=== PATIENT | male | born 1930 | race Caucasian/White ===

== ENCOUNTER 2017-09-08 19:51 | Inpatient (IN) | payer MEDICARE ==
--- NOTE | 2017-09-08 22:38 | ED Physician Chart ---
ED Chief Complaint/HPI - Patient Information Date Seen:: 09/08/17 Time Seen:: 22:37 Chief Complaint:: hemoptysis History of Present Illness:: 87 yo male was brought from [facility] to ER for evaluation of one episode of hemoptysis. At ER, the patient's vital signs were within normal range and the patient did not appear to be in distress. Allergies:: Allergies Allergy/AdvReac Type Severity Reaction Status Date / Time No Known Allergies Allergy Verified 09/08/17 20:10 Vitals:: Vital Signs - 8 hr 09/08/17 19:55 Temp 98.1 F HR 57 RR 20 BP 126/67 O2 Sat % 95 ED Review of Systems - Review of Systems General/Constitutional: No fever, No chills Skin: No bruising Head: No headache Eyes: No pain ENT: No nasal drainage Neck: No neck pain Cardio Vascular: No edema Pulmonary: Cough, Sputum GI: No nausea, No vomiting Musculoskeletal: No bone or joint pain ED Past Medical History - Past Medical History Past Medical History: HTN, DM, Asthma/COPD, Dyslipidemia, PUD/GERD, Dementia, Other (Anemia, Parkinson's disease) Social History: Non Smoker, No Alcohol, No Drug Use Psychiatricy History: Depression, Bipolar Family Medical History - Family Member Mother History Unknown: Yes ED Physical Exam - Physical Examination General/Constitutional: Awake, Alert Head: Atraumatic Eyes: PERRL, EOMI Skin: No ecchymosis ENMT: Nasal exam nl Neck: No nuchal rigidity Other Respiratory comments:: rhonchi Cardio Vascular: RRR, No murmur, gallop, rubs, NL S1 S2 GI: No tenderness/rebounding/guarding Extremities: Full ROM Other Neuro/Psych comments:: Demented ED Assessment - Assessment General Assessment: Pneumonia Anemia Hypoxemia Metabolic alkalosis Hypertension Parkinson's Dementia Assessment/Comments:: CBC, CMP, PT/PTT ABG, CXR Admit to med surg ED Septic Shock - . Is Septic Shock (SBP<90, OR Lactate>4 mmol\L) present?: No - <6hrs of presentation: Vital Signs: Vital Signs - 8 hr 09/08/17 19:55 Temp 98.1 F HR 57 RR 20 BP 126/67 O2 Sat % 95 ED Reassessment (Disposition) - Reassessment Reassessment Condition:: Unchanged - Patient Disposition Discharge/Transfer:: Acute Care w/in this hosp Admitting Medical Physician:: Mj Shaver ED Discharge Plan - Patient Disposition Admit/Discharge/Transfer: Acute Care w/in this hosp
[2017-09-08 23:38] LABS: % EOSINOPHILS 5.2 % (0.0-5.0); % LYMPHOCYTES 18.6 % (20.0-50.0); % MONOCYTES 7.6 % (2.0-10.0); % NEUTROPHILS 68.6 % (40.0-80.0); EOSINOPHILE ABSOLUTE 0.5 Th/cmm (0.1-0.4); HEMATOCRIT 36.3 % (41.0-60); HEMOGLOBIN 11.9 gm/dL (12-16); LYMPHOCYTE ABSOLUTE 1.7 Th/cmm (1.5-3.0); MEAN CELL VOLUME 91.2 fl (80-99); MEAN CORPUSCULAR HEMOGLOBIN 29.9 pg (27.0-31.0); MEAN CORPUSCULAR HGB CONC 32.8 pg (28.0-36.0); MEAN PLATELET VOLUME 6.4 fl; MONOCYTE ABSOLUTE 0.7 Th/cmm (0.3-1.0); NEUTROPHILE ABSOLUTE 6.1 Th/cmm (1.8-8.0); PLATELET COUNT 316 Th/cmm (150-400); RED BLOOD COUNT 3.98 Mil/cmm (3.80-5.80); RED CELL DISTRIBUTION WIDTH 15.4 % (11.5-20.0)
[2017-09-08 23:52] LABS: ALB/GLOB RATIO 1.1 (1.0-1.8); ALBUMIN 3.3 gm/dL (4.2-5.5); ALKALINE PHOSPHATASE 70 U/L (34-104); BILIRUBIN,TOTAL 0.2 mg/dL (0.3-1.0); BUN - UREA NITROGEN 15 mg/dL (7-25); CALCIUM SERUM 8.9 mg/dL (8.6-10.3); CARBON DIOXIDE 30.4 mEq/L (21.0-31.0); CHLORIDE 101 mEq/L (98-107); CREATININE - SERUM 0.9 mg/dL (0.7-1.3); GLUCOSE 107 mg/dL (70-105); POTASSIUM SERUM 4.4 mEq/L (3.5-5.1); SGOT 13 U/L (13-39); SGPT/ALT 9 U/L (7-52); SODIUM SERUM 137 mEq/L (136-145); TOTAL PROTEIN,SERUM 6.4 gm/dL (6.0-8.3)
[2017-09-08 23:56] LABS: INR 1.05 (0.5-1.4); PROTHROMBIN TIME (TEST) 10.9 SECONDS (9.5-11.5)
[2017-09-08 23:56] LABS: ALLEN TEST Positive
[2017-09-09] MEDS ORDERED: Albuterol/Ipratropium Neb 3 ML AERS HHN ONE (03:21)
[2017-09-09] MEDS: Albuterol/Ipratropium Neb 3 ML AERS HHN SCH ×5 (07:08→23:01)
--- NOTE | 2017-09-09 08:18 | Diagnostic Imaging Report ---
Exam: Portable upright examination of the chest. HISTORY: Cough. Findings: Portable summation of chest at 0047 hours reviewed, no prior studies available comparison. Bony thorax is intact. Mediastinal structures midline the heart is not enlarged the aortic arch calcified. There is a question of atelectasis in the right base versus early infiltrate. Small left pleural effusion cannot be excluded. COPD changes are noted. IMPRESSION: 1. COPD changes 2. Mild atelectasis right base versus scarring or small area of fibrotic scarring. 3. Small left pleural effusion. 4. COMPARISON to old study is recommended.
[2017-09-09] MEDS ORDERED: Cefepime 1 GM in Sodium Chloride 0.9% 50 ML IV SCH (09:00)
[2017-09-09] MEDS ORDERED: VTE Chemical Prophylaxis Screen/Admission MC PRN (12:30)
[2017-09-09 12:36] LABS: A1C % 6.2 % (4.0-6.0)
[2017-09-09] MEDS ORDERED: Magnesium Hydroxide (MOM) 30 mL UDC PO PRN (13:37)
[2017-09-09] MEDS ORDERED: guaiFENesin 200 MG/10 ML UDC PO PRN (13:46)
[2017-09-09] MEDS ORDERED: IOHEXOL 300mgI/mL 100 ML VIAL IVP ONE (15:24)
--- NOTE | 2017-09-09 15:55 | History & Physical ---
ADMIT DATE: 09/09/2017 CHIEF COMPLAINT: Blood in the sputum. HISTORY OF PRESENT ILLNESS: This is an 87-year-old male with history of COPD, Parkinson's, hypertension, hypercholesterolemia, GERD, schizoaffective disorder, dementia, was admitted from nursing facility secondary to spitting up blood. The patient with anemia and admitted for further management. PAST MEDICAL HISTORY: As mentioned in history present illness. PAST SURGICAL HISTORY: Unable to obtain for the patient. ALLERGIES: No known drug allergies. MEDICATIONS: The patient is on calcium, vitamin D3, dextran, Depakote, Colace, enalapril, ____, lactulose, Namenda, olanzapine and simvastatin. FAMILY HISTORY: Noncontributory. SOCIAL HISTORY: The patient lives in senior care. The patient requiring 24-hour total care. REVIEW OF SYSTEMS: This is limited secondary to the patient's current mental state. We will try to obtain more detailed review of system at a later date by talking to family members, ____ [phone] also try to get information from nursing staff at [facility], . PHYSICAL EXAMINATION: VITAL SIGNS: Blood pressure 130/67, respirations 18, pulse 70, and temperature 97.6. GENERAL: Elderly male, who appears his stated age. NECK: Supple. No mass. LUNGS: Equal breath sounds, few rhonchi. HEART: Regular rate and rhythm with systolic ejection murmur. ABDOMEN: Soft, globular. EXTREMITIES: Positive excoriation. LABORATORY DATA: WBC 9.7, hemoglobin 9.9, platelets 316. INR 1.05, PTT 24, pH 7.5, pCO2 of 35, pO2 of ____. BUN 15, creatinine 0.9. Hemoglobin A1c 6.3. Albumin 3.3. ASSESSMENT AND PLAN: Hemoptysis, anemia, CO2 retention, acute chronic obstructive pulmonary disease exacerbation, hypoxemia, Parkinson's, hypertension, hypercholesterolemia, gastroesophageal reflux disease, schizoaffective disorder. We will continue patient on oxygen and bronchodilator treatment. We will perform CT of the chest. We will refer the patient to Pulmonary. Also, try to get information from the patient. JOB# [id number]
[2017-09-09] MEDS: Polyvinyl Alcohol Ophth Soln 15 mL Bottle LEFT EYE SCH ×2 (17:26→20:58)
[2017-09-10] MEDS: Albuterol/Ipratropium Neb 3 ML AERS HHN SCH ×5 (03:07→19:15)
--- NOTE | 2017-09-10 08:53 | Consultation ---
DATE OF CONSULTATION: 09/10/2017 REQUESTING PHYSICIAN: Dr. Shaver. REASON FOR CONSULTATION: Depression and anxiety. HISTORY OF PRESENT ILLNESS: This patient is an 87-year-old male, resident of [facility] in [place]. Information obtained by directly interviewing the patient as well as taking the admission papers. As per the information obtained, the patient has been brought over here for hemoptysis and patient has constantly been moaning, groaning and has been acutely anxious and hence a Psychiatric consultation is requested to address the issue. Chart is reviewed. The patient is interviewed and the patient's medication list includes the patient had been on Depakote Sprinkles 125 mg twice a day and patient also has been on Zyprexa 2.5 mg at bedtime, Namenda 10 mg tablet 1 twice a day and the patient is reported to have been diagnosed to have multiple medical problems. The patient is reportedly recently diagnosed to have pneumonia on the left side and patient has a history of Parkinson's disease, diabetes mellitus, hypertension, and patient during the evaluation has been complaining of pain in the left shoulder area. PAST PSYCHIATRIC HISTORY: The patient denies any prior psychiatric hospitalizations, but patient is being followed up by on an outpatient basis at the facility. SOCIAL HISTORY: The patient is a resident of the [facility]. The patient is reported to have daughter very concerned with the patient's welfare at this time. SUBSTANCE ABUSE HISTORY: None. PHYSICAL AND SEXUAL ABUSE HISTORY: None. LEGAL PROBLEMS: None at this time. STRENGTHS AND ASSETS: The patient seems to be motivated. MENTAL EXAMINATION: The patient is an 87-year-old, looking his stated age, superficially cooperative. Eye contact is poor. The patient is reporting that he is having acute pain on the left side. The patient's insight and judgment at this time are noted to be improving. Impulse control seems to be fair. The patient is not presenting with any threats to harm self or others, but patient's major concern seems to be pain. The patient has short-term memory deficits, but long-term memory is also noted to be very sketchy. The patient however knows that he is old but he could not fill it out the exact age and date of . DIAGNOSTIC IMPRESSION: 1. Depressive disorder, not otherwise specified. 1b. Dementia of Alzheimer's type. 1c. Anxiety disorder. PLAN: To continue the patient with these current medications. I encouraged the patient to verbalize the concerns and wait for further determination as to the psychiatric needs for the patient. JOB# [id number]
[2017-09-10] MEDS ORDERED: CARBIDOPA PO SCH (09:00)
[2017-09-10] MEDS ORDERED: LEVODOPA PO SCH (09:00)
--- NOTE | 2017-09-10 09:09 | Diagnostic Imaging Report ---
Exam: CT examination of chest HISTORY: Hemoptysis. Total DLP equals 184 CTDI equals 5.4 Findings: Multiple contiguous thin section of the chest were obtained with administration of intravenous contrast material from thoracic outlet to the upper abdomen. No prior studies available comparison. The study demonstrates normal enhancement of the great vessels of the neck. No abnormal adenopathy appreciated. The thyroid gland is intact. The thoracic aorta diffusely calcified. There is evidence for bilateral lower lobe pulmonary parenchymal infiltrates suggestive of pneumonia Superimposed fibrotic scarring is appreciated bilaterally predominantly apices. Small pleural effusions are present. The heart is prominent. Examination of the upper abdomen demonstrates significant distention of the stomach with air-fluid level. IMPRESSION: 1. Bilateral basilar pneumonia superimposed small effusions 2. Fibrotic scarring bilaterally chronic findings. 3. Degenerative dilated stomach with air-fluid level, clinical correlation recommended.
[2017-09-10] MEDS: Multivitamin w/ Minerals Tab PO SCH (09:57)
[2017-09-10] MEDS: Lactobacillus Rhamnosus GG 15 Billion CFU CAP.SPRINK PO SCH (09:57)
[2017-09-10] MEDS: Vitamin D3 2,000 IU SGL PO SCH (09:57)
[2017-09-10] MEDS: Lactulose 10 Gm/15 mL 30mL UDC PO SCH (09:59)
[2017-09-10] MEDS: Ferrous Sulfate 325 MG TAB PO SCH (09:59)
[2017-09-10] MEDS: PANCREAZE PO SCH (10:01)
[2017-09-10] MEDS: Polyvinyl Alcohol Ophth Soln 15 mL Bottle LEFT EYE SCH ×4 (10:02→22:33)
[2017-09-10 11:10] LABS: URINE SOURCE RANDOM
[2017-09-10 11:44] LABS: URINE BILIRUBIN NEGATIVE (NEGATIVE); URINE BLOOD NEGATIVE (NEGATIVE); URINE GLUCOSE (UA) NEGATIVE (NEGATIVE); URINE KETONE NEGATIVE (NEGATIVE); URINE LEUKOCYTE ESTERASE NEGATIVE (NEGATIVE); URINE NITRATE NEGATIVE (NEGATIVE); URINE PROTEIN NEGATIVE (NEGATIVE); URINE UROBILINOGEN 0.2 E.U./dL (0.2 - 1.0)
[2017-09-10 11:48] LABS: URINE CLARITY CLEAR (CLEAR); URINE COLOR YELLOW; URINE MICROSCOPIC INDICATED? NO
--- NOTE | 2017-09-10 14:51 | Internal Medicine Prog Note ---
Internal Medicine Subjective - Subjective Service Date: 09/10/17 Patient seen and examined:: with staff Patient is:: awake, verbal Patient Complaints of:: congestion, cough Per staff patient has:: tolerating meds Internal Medicine Objective - Results Result Diagrams: 09/08/17 23:30 09/08/17 23:30 Recent Labs: Laboratory Last Values WBC 9.0 Th/cmm (4.8-10.8) 09/08/17 23:30 RBC 3.98 Mil/cmm (3.80-5.80) 09/08/17 23:30 Hgb 11.9 gm/dL (12-16) L 09/08/17 23:30 Hct 36.3 % (41.0-60) L 09/08/17 23:30 MCV 91.2 fl (80-99) 09/08/17 23:30 MCH 29.9 pg (27.0-31.0) 09/08/17 23:30 MCHC Differential 32.8 pg (28.0-36.0) 09/08/17 23:30 RDW 15.4 % (11.5-20.0) 09/08/17 23:30 Plt Count 316 Th/cmm (150-400) 09/08/17 23:30 MPV 6.4 fl 09/08/17 23:30 Neutrophils % 68.6 % (40.0-80.0) 09/08/17 23:30 Lymphocytes % 18.6 % (20.0-50.0) L 09/08/17 23:30 Monocytes % 7.6 % (2.0-10.0) 09/08/17 23:30 Eosinophils % 5.2 % (0.0-5.0) H 09/08/17 23:30 Basophils % 0.0 % (0.0-2.0) 09/08/17 23:30 PT 10.9 SECONDS (9.5-11.5) 09/08/17 23:30 INR 1.05 (0.5-1.4) 09/08/17 23:30 PTT (Actin FS) 24.8 SECONDS (26.0-38.0) L 09/08/17 23:30 Specimen Source Arterial 09/08/17 23:40 Sample Site Left Radial 09/08/17 23:40 pH 7.50 (7.35-7.45) H 09/08/17 23:40 pCO2 35.0 mmHg (35.0-45.0) 09/08/17 23:40 pO2 56.0 mmHg (80.0-100.0) L 09/08/17 23:40 HCO3 28.1 mEq/L (20.0-26.0) H 09/08/17 23:40 Base Excess 4.2 mEq/L (-3.0-3.0) H 09/08/17 23:40 O2 Saturation 91.0 % (92.0-100.0) L 09/08/17 23:40 Desmond Test Positive 09/08/17 23:40 Vent Rate N/A 09/08/17 23:40 Inspired O2 21% 09/08/17 23:40 Tidal Volume N/A 09/08/17 23:40 PEEP N/A 09/08/17 23:40 Pressure (ins/psv/peep) N/A 09/08/17 23:40 Critical Value KATHI 09/08/17 23:40 Sodium 137 mEq/L (136-145) 09/08/17 23:30 Potassium 4.4 mEq/L (3.5-5.1) 09/08/17 23:30 Chloride 101 mEq/L (98-107) 09/08/17 23:30 Carbon Dioxide 30.4 mEq/L (21.0-31.0) 09/08/17 23:30 Anion Gap 10.0 (7.0-16.0) 09/08/17 23:30 BUN 15 mg/dL (7-25) 09/08/17 23:30 Creatinine 0.9 mg/dL (0.7-1.3) 09/08/17 23:30 Est GFR ( Amer) TNP 09/08/17 23:30 Est GFR (Non-Af Amer) TNP 09/08/17 23:30 BUN/Creatinine Ratio 16.7 09/08/17 23:30 Glucose 107 mg/dL (70-105) H 09/08/17 23:30 Hemoglobin A1c % 6.2 % (4.0-6.0) H 09/08/17 00:11 Calcium 8.9 mg/dL (8.6-10.3) 09/08/17 23:30 Total Bilirubin 0.2 mg/dL (0.3-1.0) L 09/08/17 23:30 AST 13 U/L (13-39) 09/08/17 23:30 ALT 9 U/L (7-52) 09/08/17 23:30 Alkaline Phosphatase 70 U/L (34-104) 09/08/17 23:30 Ammonia 45 umol/L (16-53) 09/08/17 23:45 Troponin I 0.01 ng/mL (0.01-0.05) 09/08/17 23:30 B-Natriuretic Peptide 34.1 pg/mL (5.0-100.0) 09/08/17 23:30 Total Protein 6.4 gm/dL (6.0-8.3) 09/08/17 23:30 Albumin 3.3 gm/dL (4.2-5.5) L 09/08/17 23:30 Globulin 3.1 gm/dL 09/08/17 23:30 Albumin/Globulin Ratio 1.1 (1.0-1.8) 09/08/17 23:30 Urine Source RANDOM 09/10/17 10:00 Urine Color YELLOW 09/10/17 10:00 Urine Clarity CLEAR (CLEAR) 09/10/17 10:00 Urine pH 6.0 (4.6 - 8.0) 09/10/17 10:00 Ur Specific Gentry 1.010 (1.005-1.030) 09/10/17 10:00 Urine Protein NEGATIVE mg/dL (NEGATIVE) 09/10/17 10:00 Urine Glucose (UA) NEGATIVE mg/dL (NEGATIVE) 09/10/17 10:00 Urine Ketones NEGATIVE mg/dL (NEGATIVE) 09/10/17 10:00 Urine Blood NEGATIVE (NEGATIVE) 09/10/17 10:00 Urine Nitrate NEGATIVE (NEGATIVE) 09/10/17 10:00 Urine Bilirubin NEGATIVE (NEGATIVE) 09/10/17 10:00 Urine Urobilinogen 0.2 E.U./dL (0.2 - 1.0) 09/10/17 10:00 Ur Leukocyte Esterase NEGATIVE (NEGATIVE) 09/10/17 10:00 - Physical Exam Vitals and I&O: Vital Signs Temp 98.3 F 09/10/17 12:00 Pulse 87 12/28/17 12:00 Resp 19 09/10/17 12:00 BP 131/60 09/10/17 12:00 Pulse Ox 100 09/10/17 12:00 Intake & Output 09/09/17 09/10/17 09/10/17 18:59 06:59 18:59 Intake Total 500 50 50 Output Total 450 Balance 50 50 50 Weight (lbs) 140 lb 139 lb Intake: Intake, IV Amount 50 50 Cefepime 1 gm In Dextrose 50 50 5% 50 ml @ 100 mls/hr IV Q12HR [facility] Rx#:[id number] Oral 500 Output: Urine 450 Other: # Bowel Movements 1 Stool Characteristics Soft Formed Brown Active Medications: Current Medications Acetaminophen (Tylenol) 650 mg PO Q4H PRN PRN Reason: Pain or Fever >101 Stop: 11/08/17 03:14 Albuterol/Ipratropium (Duoneb Neb) 3 ml HHN Q4HRT [facility] Stop: 11/08/17 06:59 Last Admin: 09/10/17 11:02 Dose: 3 ml Artificial Tears (Artificial Tears Ophth Soln) 1 drop LEFT EYE QID [facility] Stop: 11/08/17 16:59 Last Admin: 09/10/17 12:11 Dose: 1 drop Divalproex Sodium (Depakote Sprinkle) 125 mg PO BID [facility] PRN Reason: Protocol Stop: 11/08/17 16:59 Last Admin: 09/10/17 09:57 Dose: 125 mg Docusate Sodium (Colace) 100 mg PO BID [facility] Stop: 11/08/17 16:59 Last Admin: 09/10/17 09:59 Dose: 100 mg Enalapril Maleate (Vasotec) 2.5 mg PO DAILY [facility] Stop: 11/09/17 08:59 Last Admin: 09/10/17 09:58 Dose: 2.5 mg Famotidine (Pepcid) 20 mg PO BID [facility] Stop: 11/08/17 16:59 Last Admin: 09/10/17 09:57 Dose: 20 mg Ferrous Sulfate (Iron) 325 mg PO DAILY [facility] Stop: 11/09/17 08:59 Last Admin: 09/10/17 09:59 Dose: 325 mg Guaifenesin (Robitussin) 200 mg PO Q4HR PRN PRN Reason: Cough or Congestion Stop: 11/08/17 13:45 Cefepime HCl 1 gm/ Dextrose 50 mls @ 100 mls/hr IV Q12HR [facility] Stop: 11/08/17 08:59 Last Infusion: 09/10/17 14:32 Dose: Infused Lactobacillus Rhamnosus (Culturelle 15b) 1 each PO DAILY [facility] Stop: 11/09/17 08:59 Last Admin: 09/10/17 09:57 Dose: 1 each Lactulose (Cephulac) 20 gm PO DAILY [facility] Stop: 11/09/17 08:59 Last Admin: 09/10/17 09:59 Dose: 20 gm Magnesium Hydroxide (Milk Of Magnesia) 30 ml PO DAILY PRN PRN Reason: Constipation Stop: 11/08/17 13:36 Memantine (Namenda) 10 mg PO BID [facility] Stop: 11/08/17 16:59 Last Admin: 09/10/17 09:57 Dose: 10 mg Miscellaneous (Vte Chemical Prophylaxis Screen/ Admission) 1 [facility] PRN PRN PRN Reason: PROTOCOL Stop: 11/08/17 12:29 Miscellaneous (Carbidopa/Levodopa [Carbidopa-Levo 25-250 Mg Odt]) 1 each PO DAILY [facility] Stop: 11/09/17 08:59 Miscellaneous (Misc Oral Cap) 1 cap PO DAILY [facility] Stop: 11/09/17 08:59 Last Admin: 09/10/17 10:01 Dose: 1 cap Olanzapine (Zyprexa) 2.5 mg PO HS [facility] PRN Reason: Protocol Stop: 11/08/17 20:59 Ondansetron HCl (Zofran) 4 mg IV Q4H PRN PRN Reason: Nausea / Vomiting Stop: 11/08/17 02:55 Simvastatin (Zocor) 20 mg PO HS [facility] PRN Reason: Protocol Stop: 11/08/17 20:59 Last Admin: 09/09/17 20:59 Dose: 20 mg Vitamin D (Vitamin D3) 2,000 iu PO DAILY [facility] Stop: 11/09/17 08:59 Last Admin: 09/10/17 09:57 Dose: 2,000 iu General: weak, alert HEENT: PERRLA Neck: Supple Lungs: ronchi Cardiovascular: RRR, Normal S1, Normal S2, without murmur Abdomen: soft, non-tender, non-distended, positive bowel sound Neurological: alert Internal Medicine Assmt/Plan - Assessment Assessment: PNA HEMOPTYSIS CO2 RETENTION COPD EXACERBATION PARKINGS HTN GERD - Plan Plan: CONTINUE WITH IV ABX BRONCHODILATORS AND SUPPLEMENTAL OXYGEN FOLLOW UP LABS IN AM CONTINUE CURRENT PLAN OF CARE
[2017-09-10] MEDS: methylPREDNISolone SS 40 mg Vial IV SCH (22:32)
--- NOTE | 2017-09-11 02:27 | Progress Notes ---
DATE: 09/10/2017 REASON FOR CONSULTATION: Shortness of breath. HISTORY OF PRESENT ILLNESS: This is an 87-year-old gentleman in fairly good health with history of "COPD, Parkinsonism, hypertension, dyslipoproteinemia and also has history of dementia with questionable schizoaffective disorder," presents with history of coughing, some wheezing. He has some bloody-colored sputum. Subsequently, the patient was admitted for further care and necessary treatment. Denied of any fever. Denied of any chest pain. Denied of any fever, night sweats, etc. PAST MEDICAL HISTORY: History of COPD, hypertension, dyslipoproteinemia. PAST SURGICAL HISTORY: None. ALLERGIC HISTORY: NIL. CURRENT MEDICATIONS: Multiple which include Depakote, Colace, enalapril, lactulose, Namenda. SOCIAL HISTORY: Lives in a retirement and " ." PHYSICAL EXAMINATION: GENERAL: This is an elderly-looking gentleman, lying comfortably, in no respiratory distress. VITAL SIGNS: Temperature is 98.3, blood pressure 98.4, blood pressure 131/61, respirations 20, saturation 100% on 1 liter per minute. NECK: Veins not visualized. ENT: Shows essentially unremarkable. Neck veins not visualized. CHEST: Shows diminished air entry with occasional rhonchi. HEART: Regular. ABDOMEN: Soft, nontender. EXTREMITIES: Shows no peripheral edema. LABORATORY DATA: The patient's pertinent laboratory studies: CT of the chest shows bilateral patchy pneumonia with small effusion with some fibrous changes with lot of chronic changes. The patient's other laboratory studies: White count is 9000, hemoglobin 11.9. PT/INR okay. The patient's ABG: pO2 is 61 and initially, he was in room air. ASSESSMENT: The patient clinically appears to have acute tracheobronchitis, questionable pneumonia with underlying fibrotic changes and it is reasonable, it might have caused by a mild degree of tracheobronchitis. PLANS AND SUGGESTIONS: We will continue CPAP, aggressive respiratory care, inhalation treatment, and if symptoms persist, consider doing a swallow evaluation in view of Parkinson that may be low grade aspiration and go from there. JOB# [id number]
[2017-09-11 06:39] LABS: HEMOGLOBIN 11.8 gm/dL (12-16); LYMPHOCYTE ABSOLUTE 0.3 Th/cmm (1.5-3.0); MEAN CELL VOLUME 89.8 fl (80-99); MEAN CORPUSCULAR HEMOGLOBIN 30.2 pg (27.0-31.0); MEAN CORPUSCULAR HGB CONC 33.7 pg (28.0-36.0); MEAN PLATELET VOLUME 6.7 fl; NEUTROPHILE ABSOLUTE 5.1 Th/cmm (1.8-8.0); PLATELET COUNT 281 Th/cmm (150-400); RED CELL DISTRIBUTION WIDTH 15.2 % (11.5-20.0)
[2017-09-11] MEDS: Albuterol/Ipratropium Neb 3 ML AERS HHN SCH ×4 (06:39→18:51)
[2017-09-11] MEDS: Budesonide 0.5 Mg/2 mL Ud HHN SCH ×2 (06:39→18:51)
[2017-09-11 06:42] LABS: WHITE BLOOD COUNT 5.4 Th/cmm (4.8-10.8)
[2017-09-11 07:08] LABS: ALB/GLOB RATIO 1.1 (1.0-1.8); ALBUMIN 3.5 gm/dL (4.2-5.5); ALKALINE PHOSPHATASE 70 U/L (34-104); ANION GAP 12.5 (7.0-16.0); BILIRUBIN,TOTAL 0.3 mg/dL (0.3-1.0); BUN - UREA NITROGEN 18 mg/dL (7-25); CARBON DIOXIDE 27.3 mEq/L (21.0-31.0); CHLORIDE 99 mEq/L (98-107); CREATININE - SERUM 0.8 mg/dL (0.7-1.3); GLUCOSE 176 mg/dL (70-105); POTASSIUM SERUM 4.8 mEq/L (3.5-5.1); SGOT 10 U/L (13-39); SGPT/ALT 7 U/L (7-52); SODIUM SERUM 134 mEq/L (136-145); TOTAL PROTEIN,SERUM 6.6 gm/dL (6.0-8.3)
--- NOTE | 2017-09-11 08:21 | Diagnostic Imaging Report ---
Exam: Chest 2 views HISTORY: Shortness of breath. Findings: Frontal lateral views chest reviewed the study compared to the prior CT examination of chest at 09/09/2017. The lateral view of the chest suboptimal due to region inability to cooperate. The study demonstrates basilar pneumonia with superimposed left pleural effusion. Atelectatic changes and scarring is noted in the right base. COPD changes are noted. Bony thorax intact. The aortic arch calcified. IMPRESSION: 1. COPD changes 2. Left basilar infiltrate superimposed pleural effusion 3. Right basilar atelectasis
[2017-09-11] MEDS: Vitamin D3 2,000 IU SGL PO SCH (09:02)
[2017-09-11] MEDS: methylPREDNISolone SS 40 mg Vial IV SCH ×2 (09:03→21:56)
[2017-09-11] MEDS: Multivitamin w/ Minerals Tab PO SCH (09:06)
[2017-09-11] MEDS: Lactobacillus Rhamnosus GG 15 Billion CFU CAP.SPRINK PO SCH (09:06)
[2017-09-11] MEDS: Lactulose 10 Gm/15 mL 30mL UDC PO SCH (09:06)
[2017-09-11] MEDS: Ferrous Sulfate 325 MG TAB PO SCH (09:06)
[2017-09-11] MEDS: Polyvinyl Alcohol Ophth Soln 15 mL Bottle LEFT EYE SCH ×3 (09:08→21:56)
[2017-09-11] MEDS: PANCREAZE PO SCH (09:09)
[2017-09-11 09:41] LABS: pH 7.46 (7.35-7.45)
[2017-09-11 09:42] LABS: ALLEN TEST Positive
--- NOTE | 2017-09-11 11:48 | Internal Medicine Prog Note ---
Internal Medicine Subjective - Subjective Service Date: 09/11/17 Patient seen and examined:: with staff Patient is:: awake, verbal Patient Complaints of:: congestion, cough Per staff patient has:: tolerating meds Internal Medicine Objective - Results Result Diagrams: 09/11/17 05:30 09/11/17 05:30 Recent Labs: Laboratory Last Values WBC 5.4 Th/cmm (4.8-10.8) D 09/11/17 05:30 RBC 3.90 Mil/cmm (3.80-5.80) 09/11/17 05:30 Hgb 11.8 gm/dL (12-16) L 09/11/17 05:30 Hct 35.0 % (41.0-60) L 09/11/17 05:30 MCV 89.8 fl (80-99) 09/11/17 05:30 MCH 30.2 pg (27.0-31.0) 09/11/17 05:30 MCHC Differential 33.7 pg (28.0-36.0) 09/11/17 05:30 RDW 15.2 % (11.5-20.0) 09/11/17 05:30 Plt Count 281 Th/cmm (150-400) 09/11/17 05:30 MPV 6.7 fl 09/11/17 05:30 Neutrophils % 68.6 % (40.0-80.0) 09/08/17 23:30 Lymphocytes % 18.6 % (20.0-50.0) L 09/08/17 23:30 Monocytes % 7.6 % (2.0-10.0) 09/08/17 23:30 Eosinophils % 5.2 % (0.0-5.0) H 09/08/17 23:30 Basophils % 0.0 % (0.0-2.0) 09/08/17 23:30 PT 10.9 SECONDS (9.5-11.5) 09/08/17 23:30 INR 1.05 (0.5-1.4) 09/08/17 23:30 PTT (Actin FS) 24.8 SECONDS (26.0-38.0) L 09/08/17 23:30 Specimen Source Arterial 09/11/17 09:20 Sample Site Right Radial 09/11/17 09:20 pH 7.46 (7.35-7.45) H 09/11/17 09:20 pCO2 46.0 mmHg (35.0-45.0) H 09/11/17 09:20 pO2 129.0 mmHg (80.0-100.0) H 09/11/17 09:20 HCO3 31.1 mEq/L (20.0-26.0) H 09/11/17 09:20 Base Excess 7.8 mEq/L (-3.0-3.0) H 09/11/17 09:20 O2 Saturation 99.0 % (92.0-100.0) 09/11/17 09:20 Desmond Test Positive 09/11/17 09:20 Vent Rate N/A 09/11/17 09:20 Inspired O2 28% 09/11/17 09:20 Tidal Volume N/A 09/11/17 09:20 PEEP N/A 09/11/17 09:20 Pressure (ins/psv/peep) N/A 09/11/17 09:20 Critical Value HSTEHNO 09/11/17 09:20 Sodium 134 mEq/L (136-145) L 09/11/17 05:30 Potassium 4.8 mEq/L (3.5-5.1) 09/11/17 05:30 Chloride 99 mEq/L (98-107) 09/11/17 05:30 Carbon Dioxide 27.3 mEq/L (21.0-31.0) 09/11/17 05:30 Anion Gap 12.5 (7.0-16.0) 09/11/17 05:30 BUN 18 mg/dL (7-25) 09/11/17 05:30 Creatinine 0.8 mg/dL (0.7-1.3) 09/11/17 05:30 Est GFR ( Amer) TNP 09/11/17 05:30 Est GFR (Non-Af Amer) TNP 09/11/17 05:30 BUN/Creatinine Ratio 22.5 09/11/17 05:30 Glucose 176 mg/dL (70-105) H 09/11/17 05:30 Hemoglobin A1c % 6.2 % (4.0-6.0) H 09/08/17 00:11 Calcium 9.0 mg/dL (8.6-10.3) 09/11/17 05:30 Total Bilirubin 0.3 mg/dL (0.3-1.0) 09/11/17 05:30 AST 10 U/L (13-39) L 09/11/17 05:30 ALT 7 U/L (7-52) 09/11/17 05:30 Alkaline Phosphatase 70 U/L (34-104) 09/11/17 05:30 Ammonia 56 umol/L (16-53) H 09/11/17 05:30 Troponin I 0.01 ng/mL (0.01-0.05) 09/08/17 23:30 B-Natriuretic Peptide 34.1 pg/mL (5.0-100.0) 09/08/17 23:30 Total Protein 6.6 gm/dL (6.0-8.3) 09/11/17 05:30 Albumin 3.5 gm/dL (4.2-5.5) L 09/11/17 05:30 Globulin 3.1 gm/dL 09/11/17 05:30 Albumin/Globulin Ratio 1.1 (1.0-1.8) 09/11/17 05:30 TSH 1.30 uIU/ml (0.34-5.60) 09/11/17 05:30 Urine Source RANDOM 09/10/17 10:00 Urine Color YELLOW 09/10/17 10:00 Urine Clarity CLEAR (CLEAR) 09/10/17 10:00 Urine pH 6.0 (4.6 - 8.0) 09/10/17 10:00 Ur Specific [place] 1.010 (1.005-1.030) 09/10/17 10:00 Urine Protein NEGATIVE mg/dL (NEGATIVE) 09/10/17 10:00 Urine Glucose (UA) NEGATIVE mg/dL (NEGATIVE) 09/10/17 10:00 Urine Ketones NEGATIVE mg/dL (NEGATIVE) 09/10/17 10:00 Urine Blood NEGATIVE (NEGATIVE) 09/10/17 10:00 Urine Nitrate NEGATIVE (NEGATIVE) 09/10/17 10:00 Urine Bilirubin NEGATIVE (NEGATIVE) 09/10/17 10:00 Urine Urobilinogen 0.2 E.U./dL (0.2 - 1.0) 09/10/17 10:00 Ur Leukocyte Esterase NEGATIVE (NEGATIVE) 09/10/17 10:00 - Physical Exam Vitals and I&O: Vital Signs Temp 97.9 F 09/11/17 04:00 Pulse 94 09/11/17 10:43 Resp 20 09/11/17 10:43 BP 130/75 09/11/17 09:04 Pulse Ox 96 09/11/17 10:43 Intake & Output 09/10/17 09/11/17 09/11/17 18:59 06:59 18:59 Intake Total 50 60 Balance 50 60 Weight (lbs) 142 lb 5 oz Intake: Intake, IV Amount 50 50 Cefepime 1 gm In Dextrose 50 50 5% 50 ml @ 100 mls/hr IV Q12HR [facility] Rx#:[id number] Oral 10 Other: # Voids 1 Stool Characteristics Soft Soft Formed Formed Brown Brown Active Medications: Current Medications Acetaminophen (Tylenol) 650 mg PO Q4H PRN PRN Reason: Pain or Fever >101 Stop: 11/08/17 03:14 Albuterol/Ipratropium (Duoneb Neb) 3 ml HHN [id number] [facility] Stop: 11/10/17 06:59 Last Admin: 09/11/17 10:42 Dose: 3 ml Artificial Tears (Artificial Tears Ophth Soln) 1 drop LEFT EYE QID [facility] Stop: 11/08/17 16:59 Last Admin: 09/11/17 09:08 Dose: 1 drop Budesonide (Pulmicort) 0.5 mg HHN BIDRT [facility] Stop: 11/10/17 06:59 Last Admin: 09/11/17 06:39 Dose: 0.5 mg Carbidopa/Levodopa (Sinemet 25 Mg-250 Mg) 1 tab PO BID [facility] Stop: 11/10/17 08:59 Last Admin: 09/11/17 09:06 Dose: 1 tab Divalproex Sodium (Depakote Sprinkle) 125 mg PO BID [facility] PRN Reason: Protocol Stop: 11/08/17 16:59 Last Admin: 09/11/17 09:06 Dose: 125 mg Docusate Sodium (Colace) 100 mg PO BID [facility] Stop: 11/08/17 16:59 Last Admin: 09/11/17 09:07 Dose: 100 mg Enalapril Maleate (Vasotec) 2.5 mg PO DAILY [facility] Stop: 11/09/17 08:59 Last Admin: 09/11/17 09:04 Dose: 2.5 mg Famotidine (Pepcid) 20 mg PO BID [facility] Stop: 11/08/17 16:59 Last Admin: 09/11/17 09:04 Dose: 20 mg Ferrous Sulfate (Iron) 325 mg PO DAILY [facility] Stop: 11/09/17 08:59 Last Admin: 09/11/17 09:06 Dose: 325 mg Guaifenesin (Robitussin) 200 mg PO Q4HR PRN PRN Reason: Cough or Congestion Stop: 11/08/17 13:45 Cefepime HCl 1 gm/ Dextrose 50 mls @ 100 mls/hr IV Q12HR [facility] Stop: 11/08/17 08:59 Last Admin: 09/11/17 09:23 Dose: 100 mls/hr Lactobacillus Rhamnosus (Culturelle 15b) 1 each PO DAILY [facility] Stop: 11/09/17 08:59 Last Admin: 09/11/17 09:06 Dose: 1 each Lactulose (Cephulac) 20 gm PO DAILY [facility] Stop: 11/09/17 08:59 Last Admin: 09/11/17 09:06 Dose: 20 gm Magnesium Hydroxide (Milk Of Magnesia) 30 ml PO DAILY PRN PRN Reason: Constipation Stop: 11/08/17 13:36 Memantine (Namenda) 10 mg PO BID [facility] Stop: 11/08/17 16:59 Last Admin: 09/11/17 09:05 Dose: 10 mg Methylprednisolone Sodium Succinate (Solu-Medrol) 40 mg IV Q12HR [facility] Stop: 09/12/17 09:01 Last Admin: 09/11/17 09:03 Dose: 40 mg Miscellaneous (Vte Chemical Prophylaxis Screen/ Admission) 1 ea [facility] PRN PRN PRN Reason: PROTOCOL Stop: 11/08/17 12:29 Miscellaneous (Misc Oral Cap) 1 cap PO DAILY [facility] Stop: 11/09/17 08:59 Last Admin: 09/11/17 09:09 Dose: 1 cap Olanzapine (Zyprexa) 2.5 mg PO HS [facility] PRN Reason: Protocol Stop: 11/08/17 20:59 Last Admin: 09/10/17 22:35 Dose: 2.5 mg Ondansetron HCl (Zofran) 4 mg IV Q4H PRN PRN Reason: Nausea / Vomiting Stop: 11/08/17 02:55 Simvastatin (Zocor) 20 mg PO HS [facility] PRN Reason: Protocol Stop: 11/08/17 20:59 Last Admin: 09/10/17 22:33 Dose: 20 mg Vitamin D (Vitamin D3) 2,000 iu PO DAILY [facility] Stop: 11/09/17 08:59 Last Admin: 09/11/17 09:02 Dose: 2,000 iu General: weak, alert HEENT: PERRLA Neck: Supple Lungs: ronchi Cardiovascular: RRR, Normal S1, Normal S2, without murmur Abdomen: soft, non-tender, non-distended, positive bowel sound Neurological: alert Internal Medicine Assmt/Plan - Assessment Assessment: PNA HEMOPTYSIS CO2 RETENTION COPD EXACERBATION PARKINGS HTN GERD - Plan Plan: CONTINUE WITH IV ABX BRONCHODILATORS AND SUPPLEMENTAL OXYGEN FOLLOW UP LABS IN AM CONTINUE CURRENT PLAN OF CARE
--- NOTE | 2017-09-11 22:44 | Progress Notes ---
DATE: 09/11/2017 PROBLEM LIST: 1. Acute pneumonia, improving. 2. Parkinsonism. 3. Question aspiration. 4. Chronic asthmatic bronchitis. SYMPTOMS: Nil, feeling okay, offers no specific new symptomatology. PHYSICAL EXAMINATION: VITAL SIGNS: Temperature is 98, blood pressure is 132/73, respirations 18, and saturation is 97%. NECK: Veins not visualized. CHEST: Shows occasional rhonchi with diminished air entry. HEART: Regular. ABDOMEN: Soft, nontender. EXTREMITIES: Shows no peripheral edema. ASSESSMENT: The patient clinically appears to be reasonably stable, improving. PLANS AND SUGGESTIONS: We will continue current treatment and we will recommend that he will follow through speech therapy notes, etc. and see what the recommendation is and in the meantime, continue other treatment, etc., and go from there. JOB# [id number]
[2017-09-12] MEDS: Albuterol/Ipratropium Neb 3 ML AERS HHN SCH ×5 (07:42→19:49)
[2017-09-12] MEDS: Budesonide 0.5 Mg/2 mL Ud HHN SCH ×2 (07:44→19:49)
[2017-09-12 08:47] LABS: MANUAL DIFF REQUIRED? YES; RED CELL DISTRIBUTION WIDTH 15.4 % (11.5-20.0)
[2017-09-12 08:50] LABS: HEMATOCRIT 35.4 % (41.0-60); HEMOGLOBIN 11.9 gm/dL (12-16); LYMPHOCYTE ABSOLUTE 0.5 Th/cmm (1.5-3.0); MEAN CORPUSCULAR HEMOGLOBIN 30.5 pg (27.0-31.0); MEAN CORPUSCULAR HGB CONC 33.6 pg (28.0-36.0); MEAN PLATELET VOLUME 6.8 fl; MONOCYTE ABSOLUTE 0.4 Th/cmm (0.3-1.0); PLATELET COUNT 285 Th/cmm (150-400)
[2017-09-12 08:56] LABS: WHITE BLOOD COUNT 14.9 Th/cmm (4.8-10.8)
[2017-09-12 09:08] LABS: ANION GAP 10.5 (7.0-16.0); BUN - UREA NITROGEN 33 mg/dL (7-25); CALCIUM SERUM 9.1 mg/dL (8.6-10.3); CARBON DIOXIDE 31.4 mEq/L (21.0-31.0); CHLORIDE 95 mEq/L (98-107); CREATININE - SERUM 0.8 mg/dL (0.7-1.3); GLUCOSE 182 mg/dL (70-105); POTASSIUM SERUM 4.9 mEq/L (3.5-5.1); SODIUM SERUM 132 mEq/L (136-145)
[2017-09-12 09:16] LABS: BAND NEUTROPHILE 2 % (0-10); LYMPHOCYTE 2 % (20-50); MONOCYTE 2 % (2-10); NEUTROPHILS 94 % (40-80); TOTAL CELLS COUNTED 100
[2017-09-12 09:29] LABS: HEMATOCRIT 33.7 % (41.0-60); HEMOGLOBIN 11.5 gm/dL (12-16); LYMPHOCYTE ABSOLUTE 0.5 Th/cmm (1.5-3.0); MEAN CELL VOLUME 90.8 fl (80-99); MEAN CORPUSCULAR HGB CONC 34.1 pg (28.0-36.0); MEAN PLATELET VOLUME 6.3 fl; MONOCYTE ABSOLUTE 0.5 Th/cmm (0.3-1.0); NEUTROPHILE ABSOLUTE 14.6 Th/cmm (1.8-8.0); PLATELET COUNT 294 Th/cmm (150-400); RED BLOOD COUNT 3.71 Mil/cmm (3.80-5.80); RED CELL DISTRIBUTION WIDTH 15.7 % (11.5-20.0)
[2017-09-12] MEDS: methylPREDNISolone SS 40 mg Vial IV SCH (09:32)
[2017-09-12] MEDS: Multivitamin w/ Minerals Tab PO SCH (09:33)
[2017-09-12] MEDS: Ferrous Sulfate 325 MG TAB PO SCH (09:33)
[2017-09-12] MEDS: Vitamin D3 2,000 IU SGL PO SCH (09:33)
[2017-09-12] MEDS: Lactobacillus Rhamnosus GG 15 Billion CFU CAP.SPRINK PO SCH (09:33)
[2017-09-12] MEDS: Lactulose 10 Gm/15 mL 30mL UDC PO SCH (09:33)
[2017-09-12 09:37] LABS: WHITE BLOOD COUNT 15.6 Th/cmm (4.8-10.8)
[2017-09-12] MEDS: PANCREAZE PO SCH (09:39)
[2017-09-12] MEDS: Polyvinyl Alcohol Ophth Soln 15 mL Bottle LEFT EYE SCH ×3 (10:29→16:39)
--- NOTE | 2017-09-12 14:47 | Internal Medicine Prog Note ---
Internal Medicine Subjective - Subjective Patient seen and examined:: with staff, chart reviewed, other (vomitted bright red blood per staff) Patient is:: awake, verbal Patient Complaints of:: congestion, cough Per staff patient has:: tolerating meds Internal Medicine Objective - Results Result Diagrams: 09/12/17 09:25 09/12/17 08:35 Recent Labs: Laboratory Last Values WBC 15.6 Th/cmm (4.8-10.8) H 09/12/17 09:25 RBC 3.71 Mil/cmm (3.80-5.80) L 09/12/17 09:25 Hgb 11.5 gm/dL (12-16) L 09/12/17 09:25 Hct 33.7 % (41.0-60) L 09/12/17 09:25 MCV 90.8 fl (80-99) 09/12/17 09:25 MCH 31.0 pg (27.0-31.0) 09/12/17 09:25 MCHC Differential 34.1 pg (28.0-36.0) 09/12/17 09:25 RDW 15.7 % (11.5-20.0) 09/12/17 09:25 Plt Count 294 Th/cmm (150-400) 09/12/17 09:25 MPV 6.3 fl 09/12/17 09:25 Neutrophils % ONE PIECE EXP[employer]ION [employer] HAND 09/12/17 08:35 Band Neutrophils % 2 % (0-10) 09/12/17 08:35 Lymphocytes % [employer] 09/12/17 08:35 Monocytes % ONE [employer]IECE [employer] 09/12/17 08:35 Eosinophils % ONE [employer]CE [employer] 09/12/17 08:35 Basophils % 0.0 % (0.0-2.0) 09/08/17 23:30 Neutrophils (Manual) 94 % (40-80) H 09/12/17 08:35 Lymphocytes 2 % (20-50) L 09/12/17 08:35 Monocytes 2 % (2-10) 09/12/17 08:35 PT 10.9 SECONDS (9.5-11.5) 09/08/17 23:30 INR 1.05 (0.5-1.4) 09/08/17 23:30 PTT (Actin FS) 24.8 SECONDS (26.0-38.0) L 09/08/17 23:30 Specimen Source Arterial 12/29/17 09:20 Sample Site Right Radial 09/11/17 09:20 pH 7.46 (7.35-7.45) H 09/11/17 09:20 pCO2 46.0 mmHg (35.0-45.0) H 09/11/17 09:20 pO2 129.0 mmHg (80.0-100.0) H 09/11/17 09:20 HCO3 31.1 mEq/L (20.0-26.0) H 09/11/17 09:20 Base Excess 7.8 mEq/L (-3.0-3.0) H 09/11/17 09:20 O2 Saturation 99.0 % (92.0-100.0) 09/11/17 09:20 Desmond Test Positive 09/11/17 09:20 Vent Rate N/A 09/11/17 09:20 Inspired O2 28% 09/11/17 09:20 Tidal Volume N/A 09/11/17 09:20 PEEP N/A 09/11/17 09:20 Pressure (ins/psv/peep) N/A 09/11/17 09:20 Critical Value HSTEHNO 09/11/17 09:20 Sodium 132 mEq/L (136-145) L 09/12/17 08:35 Potassium 4.9 mEq/L (3.5-5.1) 09/12/17 08:35 Chloride 95 mEq/L (98-107) L 09/12/17 08:35 Carbon Dioxide 31.4 mEq/L (21.0-31.0) H 09/12/17 08:35 Anion Gap 10.5 (7.0-16.0) 09/12/17 08:35 BUN 33 mg/dL (7-25) H 09/12/17 08:35 Creatinine 0.8 mg/dL (0.7-1.3) 09/12/17 08:35 Est GFR ( Amer) TNP 09/12/17 08:35 Est GFR (Non-Af Amer) TNP 09/12/17 08:35 BUN/Creatinine Ratio 41.3 09/12/17 08:35 Glucose 182 mg/dL (70-105) H 09/12/17 08:35 Hemoglobin A1c % 6.2 % (4.0-6.0) H 09/08/17 00:11 Calcium 9.1 mg/dL (8.6-10.3) 09/12/17 08:35 Total Bilirubin 0.3 mg/dL (0.3-1.0) 09/11/17 05:30 AST 10 U/L (13-39) L 09/11/17 05:30 ALT 7 U/L (7-52) 09/11/17 05:30 Alkaline Phosphatase 70 U/L (34-104) 09/11/17 05:30 Ammonia 56 umol/L (16-53) H 09/11/17 05:30 Troponin I 0.01 ng/mL (0.01-0.05) 09/08/17 23:30 B-Natriuretic Peptide 34.1 pg/mL (5.0-100.0) 09/08/17 23:30 Total Protein 6.6 gm/dL (6.0-8.3) 09/11/17 05:30 Albumin 3.5 gm/dL (4.2-5.5) L 09/11/17 05:30 Globulin 3.1 gm/dL 09/11/17 05:30 Albumin/Globulin Ratio 1.1 (1.0-1.8) 09/11/17 05:30 TSH 1.30 uIU/ml (0.34-5.60) 09/11/17 05:30 Urine Source RANDOM 09/10/17 10:00 Urine Color YELLOW 09/10/17 10:00 Urine Clarity CLEAR (CLEAR) 09/10/17 10:00 Urine pH 6.0 (4.6 - 8.0) 09/10/17 10:00 Ur Specific [place] 1.010 (1.005-1.030) 09/10/17 10:00 Urine Protein NEGATIVE mg/dL (NEGATIVE) 09/10/17 10:00 Urine Glucose (UA) NEGATIVE mg/dL (NEGATIVE) 09/10/17 10:00 Urine Ketones NEGATIVE mg/dL (NEGATIVE) 09/10/17 10:00 Urine Blood NEGATIVE (NEGATIVE) 09/10/17 10:00 Urine Nitrate NEGATIVE (NEGATIVE) 09/10/17 10:00 Urine Bilirubin NEGATIVE (NEGATIVE) 09/10/17 10:00 Urine Urobilinogen 0.2 E.U./dL (0.2 - 1.0) 09/10/17 10:00 Ur Leukocyte Esterase NEGATIVE (NEGATIVE) 09/10/17 10:00 - Physical Exam Vitals and I&O: Vital Signs Temp 97.9 F 09/12/17 08:00 Pulse 94 09/12/17 12:28 Resp 18 09/12/17 12:28 BP 94/59 09/12/17 09:34 Pulse Ox 98 09/12/17 12:28 Intake & Output 09/11/17 09/12/17 09/12/17 18:59 06:59 18:59 Intake Total 430 60 10 Balance 430 60 10 Weight (lbs) 64.41 kg 64.41 kg 64.552 kg Intake: Intake, IV Amount 50 50 Cefepime 1 gm In Dextrose 50 50 5% 50 ml @ 100 mls/hr IV Q12HR [facility] Rx#:[id number] Oral 380 10 10 Other: Stool Characteristics Soft Soft Formed Formed Brown Brown Active Medications: Current Medications Acetaminophen (Tylenol) 650 mg PO Q4H PRN PRN Reason: Pain or Fever >101 Stop: 11/08/17 03:14 Albuterol/Ipratropium (Duoneb Neb) 3 ml HHN [id number] [facility] Stop: 11/10/17 06:59 Last Admin: 09/12/17 12:28 Dose: 3 ml Artificial Tears (Artificial Tears Ophth Soln) 1 drop LEFT EYE QID [facility] Stop: 11/08/17 16:59 Last Admin: 09/12/17 14:00 Dose: 1 drop Budesonide (Pulmicort) 0.5 mg HHN BIDRT [facility] Stop: 11/10/17 06:59 Last Admin: 09/12/17 07:44 Dose: 0.5 mg Carbidopa/Levodopa (Sinemet 25 Mg-250 Mg) 1 tab PO BID [facility] Stop: 11/10/17 08:59 Last Admin: 09/12/17 09:33 Dose: 1 tab Divalproex Sodium (Depakote Sprinkle) 125 mg PO BID [facility] PRN Reason: Protocol Stop: 11/08/17 16:59 Last Admin: 09/12/17 09:34 Dose: 125 mg Docusate Sodium (Colace) 100 mg PO BID [facility] Stop: 11/08/17 16:59 Last Admin: 09/12/17 09:33 Dose: 100 mg Enalapril Maleate (Vasotec) 2.5 mg PO DAILY [facility] Stop: 11/09/17 08:59 Last Admin: 09/12/17 09:34 Dose: Not Given Famotidine (Pepcid) 20 mg PO BID [facility] Stop: 11/08/17 16:59 Last Admin: 09/12/17 09:33 Dose: 20 mg Ferrous Sulfate (Iron) 325 mg PO DAILY [facility] Stop: 11/09/17 08:59 Last Admin: 09/12/17 09:33 Dose: 325 mg Guaifenesin (Robitussin) 200 mg PO Q4HR PRN PRN Reason: Cough or Congestion Stop: 11/08/17 13:45 Cefepime HCl 1 gm/ Dextrose 50 mls @ 100 mls/hr IV Q12HR [facility] Stop: 11/08/17 08:59 Last Admin: 09/12/17 09:36 Dose: 100 mls/hr Lactobacillus Rhamnosus (Culturelle 15b) 1 each PO DAILY [facility] Stop: 11/09/17 08:59 Last Admin: 09/12/17 09:33 Dose: 1 each Lactulose (Cephulac) 20 gm PO DAILY [facility] Stop: 11/09/17 08:59 Last Admin: 09/12/17 09:33 Dose: 20 gm Magnesium Hydroxide (Milk Of Magnesia) 30 ml PO DAILY PRN PRN Reason: Constipation Stop: 11/08/17 13:36 Memantine (Namenda) 10 mg PO BID [facility] Stop: 11/08/17 16:59 Last Admin: 09/12/17 09:33 Dose: 10 mg Miscellaneous (Vte Chemical Prophylaxis Screen/ Admission) 1 ea [facility] PRN PRN PRN Reason: PROTOCOL Stop: 11/08/17 12:29 Miscellaneous (Misc Oral Cap) 1 cap PO DAILY [facility] Stop: 11/09/17 08:59 Last Admin: 09/12/17 09:39 Dose: 1 cap Olanzapine (Zyprexa) 2.5 mg PO HS [facility] PRN Reason: Protocol Stop: 11/08/17 20:59 Last Admin: 09/11/17 21:57 Dose: 2.5 mg Ondansetron HCl (Zofran) 4 mg IV Q4H PRN PRN Reason: Nausea / Vomiting Stop: 02/25/18 02:55 Simvastatin (Zocor) 20 mg PO [facility] PRN Reason: Protocol Stop: 11/08/17 20:59 Last Admin: 09/11/17 21:57 Dose: 20 mg Vitamin D (Vitamin D3) 2,000 iu PO DAILY [facility] Stop: 11/09/17 08:59 Last Admin: 09/12/17 09:33 Dose: 2,000 iu General: weak, alert HEENT: PERRLA Neck: Supple Lungs: ronchi Cardiovascular: RRR, Normal S1, Normal S2, without murmur Abdomen: soft, non-tender, non-distended, positive bowel sound Neurological: alert Internal Medicine Assmt/Plan - Assessment Assessment: ugib PNA HEMOPTYSIS CO2 RETENTION COPD EXACERBATION [place]ARKINGS HTN GERD - Plan Plan: CONTINUE WITH IV ABX BRONCHODILATORS AND SUPPLEMENTAL OXYGEN FOLLOW UP LABS IN AM CONTINUE CURRENT PLAN OF CARE - Plan Plan: monitor h and h will add ppi will refer to gi
[2017-09-13 06:08] LABS: % BASOPHILS 0.6 % (0.0-2.0); % EOSINOPHILS 0.1 % (0.0-5.0); % LYMPHOCYTES 13.2 % (20.0-50.0); % MONOCYTES 6.6 % (2.0-10.0); % NEUTROPHILS 79.5 % (40.0-80.0); BASOPHILE ABSOLUTE 0.1 Th/cumm (0-0.2); HEMATOCRIT 30.9 % (41.0-60); HEMOGLOBIN 10.4 gm/dL (12-16); LYMPHOCYTE ABSOLUTE 1.6 Th/cmm (1.5-3.0); MEAN CELL VOLUME 91.1 fl (80-99); MEAN CORPUSCULAR HEMOGLOBIN 30.5 pg (27.0-31.0); MEAN CORPUSCULAR HGB CONC 33.5 pg (28.0-36.0); MONOCYTE ABSOLUTE 0.8 Th/cmm (0.3-1.0); NEUTROPHILE ABSOLUTE 9.7 Th/cmm (1.8-8.0); PLATELET COUNT 261 Th/cmm (150-400); RED CELL DISTRIBUTION WIDTH 15.1 % (11.5-20.0)
[2017-09-13 06:10] LABS: WHITE BLOOD COUNT 12.2 Th/cmm (4.8-10.8)
[2017-09-13 06:20] LABS: ALB/GLOB RATIO 1.2 (1.0-1.8); ALBUMIN 3.2 gm/dL (4.2-5.5); ALKALINE PHOSPHATASE 55 U/L (34-104); ANION GAP 8.9 (7.0-16.0); BILIRUBIN,TOTAL 0.3 mg/dL (0.3-1.0); BUN - UREA NITROGEN 32 mg/dL (7-25); CALCIUM SERUM 8.6 mg/dL (8.6-10.3); CARBON DIOXIDE 30.8 mEq/L (21.0-31.0); CHLORIDE 100 mEq/L (98-107); CREATININE - SERUM 0.8 mg/dL (0.7-1.3); GLUCOSE 114 mg/dL (70-105); POTASSIUM SERUM 4.7 mEq/L (3.5-5.1); SGOT 14 U/L (13-39); SGPT/ALT 4 U/L (7-52); SODIUM SERUM 135 mEq/L (136-145); TOTAL PROTEIN,SERUM 5.8 gm/dL (6.0-8.3)
[2017-09-13] MEDS: Albuterol/Ipratropium Neb 3 ML AERS HHN SCH ×4 (06:55→19:33)
[2017-09-13] MEDS: Budesonide 0.5 Mg/2 mL Ud HHN SCH ×2 (07:07→19:33)
[2017-09-13] MEDS: Polyvinyl Alcohol Ophth Soln 15 mL Bottle LEFT EYE SCH ×5 (08:02→21:22)
[2017-09-13] MEDS: Lactulose 10 Gm/15 mL 30mL UDC PO SCH ×2 (08:44→17:33)
[2017-09-13] MEDS: Multivitamin w/ Minerals Tab PO SCH (08:46)
[2017-09-13] MEDS: Vitamin D3 2,000 IU SGL PO SCH (08:46)
[2017-09-13] MEDS: Ferrous Sulfate 325 MG TAB PO SCH (08:46)
[2017-09-13] MEDS: Lactobacillus Rhamnosus GG 15 Billion CFU CAP.SPRINK PO SCH (08:46)
[2017-09-13] MEDS: PANCREAZE PO SCH (08:48)
[2017-09-13] MEDS ORDERED: Probiotic Screen MC PRN (10:30)
--- NOTE | 2017-09-13 14:56 | Internal Medicine Prog Note ---
Internal Medicine Subjective - Subjective Patient seen and examined:: with staff, chart reviewed Patient is:: awake, verbal Patient Complaints of:: congestion, cough Per staff patient has:: tolerating meds Internal Medicine Objective - Results Result Diagrams: 09/13/17 05:00 09/13/17 05:00 Recent Labs: Laboratory Last Values WBC 12.2 Th/cmm (4.8-10.8) H D 09/13/17 05:00 RBC 3.40 Mil/cmm (3.80-5.80) L 09/13/17 05:00 Hgb 10.4 gm/dL (12-16) L 09/13/17 05:00 Hct 30.9 % (41.0-60) L 09/13/17 05:00 MCV 91.1 fl (80-99) 09/13/17 05:00 MCH 30.5 pg (27.0-31.0) 09/13/17 05:00 MCHC Differential 33.5 pg (28.0-36.0) 09/13/17 05:00 RDW 15.1 % (11.5-20.0) 09/13/17 05:00 Plt Count 261 Th/cmm (150-400) 09/13/17 05:00 MPV 7.0 fl 09/13/17 05:00 Neutrophils % 79.5 % (40.0-80.0) 09/13/17 05:00 Band Neutrophils % 2 % (0-10) 09/12/17 08:35 Lymphocytes % 13.2 % (20.0-50.0) L 09/13/17 05:00 Monocytes % 6.6 % (2.0-10.0) 09/13/17 05:00 Eosinophils % 0.1 % (0.0-5.0) 09/13/17 05:00 Basophils % 0.6 % (0.0-2.0) 09/13/17 05:00 Neutrophils (Manual) 94 % (40-80) H 09/12/17 08:35 Lymphocytes 2 % (20-50) L 09/12/17 08:35 Monocytes 2 % (2-10) 09/12/17 08:35 PT 10.9 SECONDS (9.5-11.5) 09/08/17 23:30 INR 1.05 (0.5-1.4) 09/08/17 23:30 PTT (Actin FS) 24.8 SECONDS (26.0-38.0) L 09/08/17 23:30 Specimen Source Arterial 09/11/17 09:20 Sample Site Right Radial 09/11/17 09:20 pH 7.46 (7.35-7.45) H 09/11/17 09:20 pCO2 46.0 mmHg (35.0-45.0) H 09/11/17 09:20 pO2 129.0 mmHg (80.0-100.0) H 09/11/17 09:20 HCO3 31.1 mEq/L (20.0-26.0) H 09/11/17 09:20 Base Excess 7.8 mEq/L (-3.0-3.0) H 09/11/17 09:20 O2 Saturation 99.0 % (92.0-100.0) 09/11/17 09:20 [place] Test Positive 09/11/17 09:20 Vent Rate N/A 09/11/17 09:20 Inspired O2 28% 09/11/17 09:20 Tidal Volume N/A 09/11/17 09:20 PEEP N/A 09/11/17 09:20 Pressure (ins/psv/peep) N/A 09/11/17 09:20 Critical Value HSTEHNO 09/11/17 09:20 Sodium 135 mEq/L (136-145) L 09/13/17 05:00 Potassium 4.7 mEq/L (3.5-5.1) 09/13/17 05:00 Chloride 100 mEq/L (98-107) 09/13/17 05:00 Carbon Dioxide 30.8 mEq/L (21.0-31.0) 09/13/17 05:00 Anion Gap 8.9 (7.0-16.0) 09/13/17 05:00 BUN 32 mg/dL (7-25) H 09/13/17 05:00 Creatinine 0.8 mg/dL (0.7-1.3) 09/13/17 05:00 Est GFR ( Amer) TNP 09/13/17 05:00 Est GFR (Non-Af Amer) TNP 09/13/17 05:00 BUN/Creatinine Ratio 40.0 09/13/17 05:00 Glucose 114 mg/dL (70-105) H 09/13/17 05:00 Hemoglobin A1c % 6.2 % (4.0-6.0) H 09/08/17 00:11 Calcium 8.6 mg/dL (8.6-10.3) 09/13/17 05:00 Total Bilirubin 0.3 mg/dL (0.3-1.0) 09/13/17 05:00 AST 14 U/L (13-39) 09/13/17 05:00 ALT 4 U/L (7-52) L 09/13/17 05:00 Alkaline Phosphatase 55 U/L (34-104) 09/13/17 05:00 Ammonia 55 umol/L (16-53) H 09/13/17 05:00 Troponin I 0.01 ng/mL (0.01-0.05) 09/08/17 23:30 B-Natriuretic Peptide 34.1 pg/mL (5.0-100.0) 09/08/17 23:30 Total Protein 5.8 gm/dL (6.0-8.3) L 09/13/17 05:00 Albumin 3.2 gm/dL (4.2-5.5) L 09/13/17 05:00 Globulin 2.6 gm/dL 09/13/17 05:00 Albumin/Globulin Ratio 1.2 (1.0-1.8) 09/13/17 05:00 TSH 1.30 uIU/ml (0.34-5.60) 09/11/17 05:30 Urine Source RANDOM 09/10/17 10:00 Urine Color YELLOW 09/10/17 10:00 Urine Clarity CLEAR (CLEAR) 09/10/17 10:00 Urine pH 6.0 (4.6 - 8.0) 09/10/17 10:00 Ur Specific [place] 1.010 (1.005-1.030) 09/10/17 10:00 Urine Protein NEGATIVE mg/dL (NEGATIVE) 09/10/17 10:00 Urine Glucose (UA) NEGATIVE mg/dL (NEGATIVE) 09/10/17 10:00 Urine Ketones NEGATIVE mg/dL (NEGATIVE) 09/10/17 10:00 Urine Blood NEGATIVE (NEGATIVE) 09/10/17 10:00 Urine Nitrate NEGATIVE (NEGATIVE) 09/10/17 10:00 Urine Bilirubin NEGATIVE (NEGATIVE) 09/10/17 10:00 Urine Urobilinogen 0.2 E.U./dL (0.2 - 1.0) 09/10/17 10:00 Ur Leukocyte Esterase NEGATIVE (NEGATIVE) 09/10/17 10:00 - Physical Exam Vitals and I&O: Vital Signs Temp 98 F 09/13/17 12:00 Pulse 97 09/13/17 12:00 Resp 19 09/13/17 12:00 BP 131/75 09/13/17 12:00 Pulse Ox 97 09/13/17 12:00 Intake & Output 09/12/17 09/13/17 09/13/17 18:59 06:59 18:59 Intake Total 658.333 50 150 Balance 658.333 50 150 Weight (lbs) 64.41 kg 68.039 kg Intake: Intake, IV Amount 48.333 50 Cefepime 1 gm In Dextrose 48.333 50 5% 50 ml @ 100 mls/hr IV Q12HR [facility] Rx#:[id number] Oral 610 150 Other: # Voids 3 # Bowel Movements 0 Stool Characteristics Soft Soft Soft Formed Formed Formed Brown Brown Brown Active Medications: Current Medications Acetaminophen (Tylenol) 650 mg PO Q4H PRN PRN Reason: Pain or Fever >101 Stop: 11/08/17 03:14 Albuterol/Ipratropium (Duoneb Neb) 3 ml HHN [id number] [facility] Stop: 11/10/17 06:59 Last Admin: 09/13/17 11:38 Dose: 3 ml Artificial Tears (Artificial Tears Ophth Soln) 1 drop LEFT EYE QID [facility] Stop: 11/08/17 16:59 Last Admin: 09/13/17 14:10 Dose: 1 drop Budesonide (Pulmicort) 0.5 mg HHN BIDRT [facility] Stop: 11/10/17 06:59 Last Admin: 09/13/17 07:07 Dose: 0.5 mg Carbidopa/Levodopa (Sinemet 25 Mg-250 Mg) 1 tab PO BID [facility] Stop: 11/10/17 08:59 Last Admin: 09/13/17 08:45 Dose: 1 tab Divalproex Sodium (Depakote Sprinkle) 125 mg PO BID [facility] PRN Reason: Protocol Stop: 11/08/17 16:59 Last Admin: 09/13/17 08:45 Dose: 125 mg Docusate Sodium (Colace) 100 mg PO BID [facility] Stop: 11/08/17 16:59 Last Admin: 09/13/17 08:46 Dose: 100 mg Enalapril Maleate (Vasotec) 2.5 mg PO DAILY [facility] Stop: 11/09/17 08:59 Last Admin: 09/13/17 08:46 Dose: 2.5 mg Famotidine (Pepcid) 20 mg PO BID [facility] Stop: 11/08/17 16:59 Last Admin: 09/13/17 08:46 Dose: 20 mg Ferrous Sulfate (Iron) 325 mg PO DAILY [facility] Stop: 11/09/17 08:59 Last Admin: 09/13/17 08:46 Dose: 325 mg Guaifenesin (Robitussin) 200 mg PO Q4HR PRN PRN Reason: Cough or Congestion Stop: 11/08/17 13:45 Cefepime HCl 1 gm/ Dextrose 50 mls @ 100 mls/hr IV Q12HR [facility] Stop: 11/08/17 08:59 Last Admin: 09/13/17 10:00 Dose: 100 mls/hr Lactobacillus Rhamnosus (Culturelle 15b) 1 each PO DAILY [facility] Stop: 11/09/17 08:59 Last Admin: 09/13/17 08:46 Dose: 1 each Magnesium Hydroxide (Milk Of Magnesia) 30 ml PO DAILY PRN PRN Reason: Constipation Stop: 11/08/17 13:36 Memantine (Namenda) 10 mg PO BID [facility] Stop: 11/08/17 16:59 Last Admin: 09/13/17 08:46 Dose: 10 mg Miscellaneous (Vte Chemical Prophylaxis Screen/ Admission) 1 ea [facility] PRN PRN PRN Reason: PROTOCOL Stop: 11/08/17 12:29 Miscellaneous (Misc Oral Cap) 1 cap PO DAILY [facility] Stop: 11/09/17 08:59 Last Admin: 09/13/17 08:48 Dose: 1 cap Miscellaneous (Probiotic Screen) 1 ea [facility] PRN PRN PRN Reason: PROTOCOL Stop: 11/12/17 10:29 Olanzapine (Zyprexa) 2.5 mg PO HS [facility] PRN Reason: Protocol Stop: 11/08/17 20:59 Last Admin: 09/12/17 21:58 Dose: 2.5 mg Ondansetron HCl (Zofran) 4 mg IV Q4H PRN PRN Reason: Nausea / Vomiting Stop: 11/08/17 02:55 Pantoprazole Sodium (Protonix) 40 mg IVP BID [facility] Stop: 11/11/17 16:59 Last Admin: 09/13/17 08:44 Dose: 40 mg Simvastatin (Zocor) 20 mg PO HS [facility] PRN Reason: Protocol Stop: 11/08/17 20:59 Last Admin: 09/12/17 21:58 Dose: 20 mg Vitamin D (Vitamin D3) 2,000 iu PO DAILY [facility] Stop: 11/09/17 08:59 Last Admin: 09/13/17 08:46 Dose: 2,000 iu General: weak, alert HEENT: PERRLA Neck: Supple Lungs: ronchi Cardiovascular: RRR, Normal S1, Normal S2, without murmur Abdomen: soft, non-tender, non-distended, positive bowel sound Neurological: alert Internal Medicine Assmt/Plan - Assessment Assessment: ugib PNA HEMOPTYSIS CO2 RETENTION COPD EXACERBATION PARKINGS HTN GERD - Plan Plan: CONTINUE WITH IV ABX BRONCHODILATORS AND SUPPLEMENTAL OXYGEN FOLLOW UP LABS IN AM CONTINUE CURRENT PLAN OF CARE - Plan Plan: monitor h and h will add ppi will refer to gi
[2017-09-13 15:12] LABS: INF A SCREEN NEG FOR INF A; INF B SCREEN NEG FOR INF B
--- NOTE | 2017-09-14 02:53 | Consultation ---
DATE OF CONSULTATION: 09/13/2017 REASON FOR CONSULTATION: Hematemesis. HISTORY OF PRESENT ILLNESS: This consult was obtained through the request of Dr. Shaver for this 87-year-old with history of COPD, hypertension, Parkinson's, hyperlipidemia, schizoaffective disorder, dementia, admitted from a nursing facility for spitting up blood, has been here for 4 days, but yesterday had an episode of hematemesis. The patient denies any abdominal pain, but he complained of his chest hurts. He denies any weight loss. PAST MEDICAL HISTORY: Hypertension, hyperlipidemia, Parkinson disease, COPD, dementia, GERD, schizoaffective disorder. PAST SURGICAL HISTORY: Negative per patient. SOCIAL HISTORY: At this time, the patient is nonsmoker, nonalcoholic, IV drug abuser. FAMILY HISTORY: Noncontributory and unobtainable. REVIEW OF SYSTEMS: As per history of present illness. ALLERGIES: No known drug allergies. MEDICATIONS: The patient is on Tylenol, albuterol, budesonide, Sinemet, cefepime, Depakote, Colace, Vasotec, Pepcid, iron, Robitussin, Culturelle, lactulose, milk of magnesia, Namenda, probiotic, Zyprexa, Zofran, Protonix b.i.d. PHYSICAL EXAMINATION: GENERAL: The patient is awake, oriented to self. VITAL SIGNS: Blood pressure is 130/80, heart rate 97, respiratory rate 19, temperature 97.2. HEAD AND NECK: Pupils reactive to light. Extraocular muscles could not be tested. Oral cavity, no lesion. NECK: Supple, no jugular venous distention, no carotid bruit or lymph node. CHEST: Good respiratory movements. LUNGS: Showed few rhonchi. CARDIOVASCULAR: Regular rate and rhythm. No murmur or gallop. ABDOMEN: Soft, positive bowel sounds. EXTREMITIES: No edema. CENTRAL NERVOUS SYSTEM: Nonfocal. LABORATORY DATA: H and H are 10.4 and 30.9, white count 12.2. IMPRESSION: An 87-year-old with gastrointestinal bleed, suspect , could be swallowed blood, but could be also new GI cause such as gastritis, erosive esophagitis, peptic ulcer disease, etc. RECOMMENDATIONS: 1. Monitor H and H. 2. Transfuse as needed. 3. Discontinue Pepcid, but continue his Protonix. 4. Most probably the patient will need to have an EGD, but once he is stable and also there is more documentation so will wait tomorrow for his labs and then possibly EGD the day after. 5. Anemia, mild, stable. Continue to monitor. 6. Further recommendations to follow. Other medical problems such as hypertension, hyperlipidemia, Parkinson's disease, etc., as per Dr. Shaver. Thank you Dr. Shaver for allowing me to participate in the care of the patient. If you have any further questions, please let me know. JOB# [id number]
[2017-09-14 06:02] LABS: % EOSINOPHILS 2.6 % (0.0-5.0); % LYMPHOCYTES 26.1 % (20.0-50.0); % MONOCYTES 8.7 % (2.0-10.0); % NEUTROPHILS 61.6 % (40.0-80.0); BASOPHILE ABSOLUTE 0.1 Th/cumm (0-0.2); EOSINOPHILE ABSOLUTE 0.2 Th/cmm (0.1-0.4); HEMATOCRIT 33.2 % (41.0-60); LYMPHOCYTE ABSOLUTE 2.2 Th/cmm (1.5-3.0); MEAN CELL VOLUME 90.1 fl (80-99); MEAN CORPUSCULAR HEMOGLOBIN 29.8 pg (27.0-31.0); MEAN PLATELET VOLUME 6.5 fl; MONOCYTE ABSOLUTE 0.7 Th/cmm (0.3-1.0); NEUTROPHILE ABSOLUTE 5.2 Th/cmm (1.8-8.0); PLATELET COUNT 269 Th/cmm (150-400); RED BLOOD COUNT 3.68 Mil/cmm (3.80-5.80); RED CELL DISTRIBUTION WIDTH 15.3 % (11.5-20.0)
[2017-09-14 06:03] LABS: WHITE BLOOD COUNT 8.4 Th/cmm (4.8-10.8)
[2017-09-14 06:08] LABS: INR 1.06 (0.5-1.4)
[2017-09-14 06:19] LABS: ALB/GLOB RATIO 1.4 (1.0-1.8); ALBUMIN 3.3 gm/dL (4.2-5.5); ALKALINE PHOSPHATASE 58 U/L (34-104); ANION GAP 4.9 (7.0-16.0); BILIRUBIN,TOTAL 0.3 mg/dL (0.3-1.0); BUN - UREA NITROGEN 23 mg/dL (7-25); CALCIUM SERUM 8.5 mg/dL (8.6-10.3); CHLORIDE 100 mEq/L (98-107); CREATININE - SERUM 0.7 mg/dL (0.7-1.3); GLUCOSE 99 mg/dL (70-105); POTASSIUM SERUM 3.9 mEq/L (3.5-5.1); SGOT 22 U/L (13-39); SGPT/ALT 7 U/L (7-52); SODIUM SERUM 134 mEq/L (136-145); TOTAL PROTEIN,SERUM 5.7 gm/dL (6.0-8.3)
[2017-09-14] MEDS ORDERED: Budesonide 0.5 Mg/2 mL Ud HHN ONE (06:32)
[2017-09-14] MEDS: Albuterol/Ipratropium Neb 3 ML AERS HHN SCH ×2 (07:15→18:58)
[2017-09-14] MEDS: Lactulose 10 Gm/15 mL 30mL UDC PO SCH ×2 (08:42→17:18)
[2017-09-14] MEDS: Lactobacillus Rhamnosus GG 15 Billion CFU CAP.SPRINK PO SCH (08:43)
[2017-09-14] MEDS: Multivitamin w/ Minerals Tab PO SCH (08:43)
[2017-09-14] MEDS: Ferrous Sulfate 325 MG TAB PO SCH (08:45)
[2017-09-14] MEDS: Vitamin D3 2,000 IU SGL PO SCH (08:50)
[2017-09-14] MEDS: PANCREAZE PO SCH (08:55)
[2017-09-14] MEDS: Polyvinyl Alcohol Ophth Soln 15 mL Bottle LEFT EYE SCH ×4 (08:55→22:00)
[2017-09-14] MEDS: Albuterol Nebulizer 2.5mg/3mL HHN SCH ×3 (10:46→14:43)
[2017-09-14] MEDS: Ipratropium Neb 0.5 mg/2.5 mL UD HHN SCH (10:51)
--- NOTE | 2017-09-14 15:01 | Internal Medicine Prog Note ---
Internal Medicine Subjective - Subjective Patient seen and examined:: with staff, chart reviewed, other (ate 50 percent) Patient is:: awake, verbal Patient Complaints of:: congestion, cough Per staff patient has:: tolerating meds Internal Medicine Objective - Results Result Diagrams: 09/14/17 05:45 09/14/17 05:45 Recent Labs: Laboratory Last Values WBC 8.4 Th/cmm (4.8-10.8) D 09/14/17 05:45 RBC 3.68 Mil/cmm (3.80-5.80) L 09/14/17 05:45 Hgb 11.0 gm/dL (12-16) L 09/14/17 05:45 Hct 33.2 % (41.0-60) L 09/14/17 05:45 MCV 90.1 fl (80-99) 09/14/17 05:45 MCH 29.8 pg (27.0-31.0) 09/14/17 05:45 MCHC Differential 33.0 pg (28.0-36.0) 09/14/17 05:45 RDW 15.3 % (11.5-20.0) 09/14/17 05:45 Plt Count 269 Th/cmm (150-400) 09/14/17 05:45 MPV 6.5 fl 09/14/17 05:45 Neutrophils % 61.6 % (40.0-80.0) 09/14/17 05:45 Band Neutrophils % 2 % (0-10) 09/12/17 08:35 Lymphocytes % 26.1 % (20.0-50.0) 09/14/17 05:45 Monocytes % 8.7 % (2.0-10.0) 09/14/17 05:45 Eosinophils % 2.6 % (0.0-5.0) 09/14/17 05:45 Basophils % 1.0 % (0.0-2.0) 09/14/17 05:45 Neutrophils (Manual) 94 % (40-80) H 09/12/17 08:35 Lymphocytes 2 % (20-50) L 09/12/17 08:35 Monocytes 2 % (2-10) 09/12/17 08:35 PT 11.0 SECONDS (9.5-11.5) 09/14/17 05:45 INR 1.06 (0.5-1.4) 09/14/17 05:45 PTT (Actin FS) 24.8 SECONDS (26.0-38.0) L 09/08/17 23:30 Specimen Source Arterial 09/11/17 09:20 Sample Site Right Radial 09/11/17 09:20 pH 7.46 (7.35-7.45) H 09/11/17 09:20 pCO2 46.0 mmHg (35.0-45.0) H 09/11/17 09:20 pO2 129.0 mmHg (80.0-100.0) H 09/11/17 09:20 HCO3 31.1 mEq/L (20.0-26.0) H 09/11/17 09:20 Base Excess 7.8 mEq/L (-3.0-3.0) H 09/11/17 09:20 O2 Saturation 99.0 % (92.0-100.0) 09/11/17 09:20 Desmond Test Positive 09/11/17 09:20 Vent Rate N/A 09/11/17 09:20 Inspired O2 28% 09/11/17 09:20 Tidal Volume N/A 09/11/17 09:20 PEEP N/A 09/11/17 09:20 Pressure (ins/psv/peep) N/A 09/11/17 09:20 Critical Value HSTEHNO 09/11/17 09:20 Sodium 134 mEq/L (136-145) L 09/14/17 05:45 Potassium 3.9 mEq/L (3.5-5.1) 09/14/17 05:45 Chloride 100 mEq/L (98-107) 09/14/17 05:45 Carbon Dioxide 33.0 mEq/L (21.0-31.0) H 09/14/17 05:45 Anion Gap 4.9 (7.0-16.0) L 09/14/17 05:45 BUN 23 mg/dL (7-25) 09/14/17 05:45 Creatinine 0.7 mg/dL (0.7-1.3) 09/14/17 05:45 Est GFR ( Amer) TNP 09/14/17 05:45 Est GFR (Non-Af Amer) TNP 09/14/17 05:45 BUN/Creatinine Ratio 32.9 09/14/17 05:45 Glucose 99 mg/dL (70-105) 09/14/17 05:45 Hemoglobin A1c % 6.2 % (4.0-6.0) H 09/08/17 00:11 Calcium 8.5 mg/dL (8.6-10.3) L 09/14/17 05:45 Total Bilirubin 0.3 mg/dL (0.3-1.0) 09/14/17 05:45 AST 22 U/L (13-39) 09/14/17 05:45 ALT 7 U/L (7-52) 09/14/17 05:45 Alkaline Phosphatase 58 U/L (34-104) 09/14/17 05:45 Ammonia 55 umol/L (16-53) H 09/13/17 05:00 Troponin I 0.01 ng/mL (0.01-0.05) 09/08/17 23:30 B-Natriuretic Peptide 34.1 pg/mL (5.0-100.0) 09/08/17 23:30 Total Protein 5.7 gm/dL (6.0-8.3) L 09/14/17 05:45 Albumin 3.3 gm/dL (4.2-5.5) L 09/14/17 05:45 Globulin 2.4 gm/dL 09/14/17 05:45 Albumin/Globulin Ratio 1.4 (1.0-1.8) 09/14/17 05:45 TSH 1.30 uIU/ml (0.34-5.60) 09/11/17 05:30 Urine Source RANDOM 09/10/17 10:00 Urine Color YELLOW 09/10/17 10:00 Urine Clarity CLEAR (CLEAR) 09/10/17 10:00 Urine pH 6.0 (4.6 - 8.0) 09/10/17 10:00 Ur Specific [place] 1.010 (1.005-1.030) 09/10/17 10:00 Urine Protein NEGATIVE mg/dL (NEGATIVE) 09/10/17 10:00 Urine Glucose (UA) NEGATIVE mg/dL (NEGATIVE) 09/10/17 10:00 Urine Ketones NEGATIVE mg/dL (NEGATIVE) 09/10/17 10:00 Urine Blood NEGATIVE (NEGATIVE) 09/10/17 10:00 Urine Nitrate NEGATIVE (NEGATIVE) 09/10/17 10:00 Urine Bilirubin NEGATIVE (NEGATIVE) 09/10/17 10:00 Urine Urobilinogen 0.2 E.U./dL (0.2 - 1.0) 09/10/17 10:00 Ur Leukocyte Esterase NEGATIVE (NEGATIVE) 09/10/17 10:00 Influenza A (Rapid) NEG FOR INF A 09/13/17 04:25 Influenza B (Rapid) NEG FOR INF B 09/13/17 04:25 - Physical Exam Vitals and I&O: Vital Signs Temp 97.7 F 09/14/17 12:00 Pulse 70 09/14/17 14:43 Resp 20 09/14/17 14:43 BP 121/63 09/14/17 12:00 Pulse Ox 99 09/14/17 14:43 Intake & Output 09/13/17 09/14/17 09/14/17 18:59 06:59 18:59 Intake Total 500 400 Balance 500 400 Weight (lbs) 68.039 kg 63.503 kg Intake: Intake, IV Amount 50 50 Cefepime 1 gm In Dextrose 50 50 5% 50 ml @ 100 mls/hr IV Q12HR [facility] Rx#:[id number] Oral 450 350 Other: # Voids 3 2 # Bowel Movements 0 0 Stool Characteristics Soft Soft Soft Formed Formed Formed Brown Brown Brown Active Medications: Current Medications Acetaminophen (Tylenol) 650 mg PO Q4H PRN PRN Reason: Pain or Fever >101 Stop: 11/08/17 03:14 Albuterol Sulfate (Albuterol 2.5mg/3ml Neb Ud) 2.5 mg HHN [id number] [facility] Stop: 09/16/17 06:59 Last Admin: 09/14/17 14:43 Dose: 2.5 mg Albuterol/Ipratropium (Duoneb Neb) 3 ml HHN [id number] [facility] Stop: 11/10/17 06:59 Last Admin: 09/14/17 07:15 Dose: 3 ml Artificial Tears (Artificial Tears Ophth Soln) 1 drop LEFT EYE QID [facility] Stop: 11/08/17 16:59 Last Admin: 09/14/17 13:15 Dose: 1 drop Budesonide (Pulmicort) 0.5 mg HHN BIDRT [facility] Stop: 11/10/17 06:59 Last Admin: 09/13/17 19:33 Dose: 0.5 mg Carbidopa/Levodopa (Sinemet 25 Mg-250 Mg) 1 tab PO BID [facility] Stop: 11/10/17 08:59 Last Admin: 09/14/17 08:43 Dose: 1 tab Divalproex Sodium (Depakote Sprinkle) 125 mg PO BID [facility] PRN Reason: Protocol Stop: 11/08/17 16:59 Last Admin: 09/14/17 08:44 Dose: 125 mg Docusate Sodium (Colace) 100 mg PO BID [facility] Stop: 11/08/17 16:59 Last Admin: 09/14/17 08:44 Dose: 100 mg Enalapril Maleate (Vasotec) 2.5 mg PO DAILY [facility] Stop: 11/09/17 08:59 Last Admin: 09/14/17 08:44 Dose: 2.5 mg Ferrous Sulfate (Iron) 325 mg PO DAILY [facility] Stop: 11/09/17 08:59 Last Admin: 09/14/17 08:45 Dose: 325 mg Guaifenesin (Robitussin) 200 mg PO Q4HR PRN PRN Reason: Cough or Congestion Stop: 11/08/17 13:45 Cefepime HCl 1 gm/ Dextrose 50 mls @ 100 mls/hr IV Q12HR [facility] Stop: 11/08/17 08:59 Last Admin: 09/14/17 08:42 Dose: 100 mls/hr Ipratropium [place] (Atrovent Neb 0.5mg/2.5ml) 0.5 mg HHN [id number] [facility] Stop: 09/16/17 06:59 Last Admin: 09/14/17 10:51 Dose: 0.5 mg Lactobacillus Rhamnosus (Culturelle 15b) 1 each PO DAILY [facility] Stop: 11/09/17 08:59 Last Admin: 09/14/17 08:43 Dose: 1 each Lactulose (Cephulac) 20 gm PO BID [facility] Stop: 11/12/17 16:59 Last Admin: 09/14/17 08:42 Dose: 20 gm Magnesium Hydroxide (Milk Of Magnesia) 30 ml PO DAILY PRN PRN Reason: Constipation Stop: 11/08/17 13:36 Memantine (Namenda) 10 mg PO BID [facility] Stop: 11/08/17 16:59 Last Admin: 09/14/17 08:43 Dose: 10 mg Miscellaneous (Vte Chemical Prophylaxis Screen/ Admission) 1 ea [facility] PRN PRN PRN Reason: PROTOCOL Stop: 11/08/17 12:29 Miscellaneous (Misc Oral Cap) 1 cap PO DAILY [facility] Stop: 11/09/17 08:59 Last Admin: 09/14/17 08:55 Dose: 1 cap Miscellaneous (Probiotic Screen) 1 ea [facility] PRN PRN PRN Reason: PROTOCOL Stop: 11/12/17 10:29 Olanzapine (Zyprexa) 2.5 mg PO HS [facility] PRN Reason: Protocol Stop: 11/08/17 20:59 Last Admin: 09/13/17 21:22 Dose: 2.5 mg Ondansetron HCl (Zofran) 4 mg IV Q4H PRN PRN Reason: Nausea / Vomiting Stop: 11/08/17 02:55 Pantoprazole Sodium (Protonix) 40 mg IVP BID [facility] Stop: 11/11/17 16:59 Last Admin: 09/14/17 08:43 Dose: 40 mg Simvastatin (Zocor) 20 mg PO HS [facility] PRN Reason: Protocol Stop: 11/08/17 20:59 Last Admin: 09/13/17 21:22 Dose: 20 mg Vitamin D (Vitamin D3) 2,000 iu PO DAILY [facility] Stop: 11/09/17 08:59 Last Admin: 09/14/17 08:50 Dose: 2,000 iu General: weak, alert HEENT: PERRLA Neck: Supple Lungs: ronchi Cardiovascular: RRR, Normal S1, Normal S2, without murmur Abdomen: soft, non-tender, non-distended, positive bowel sound Neurological: alert Internal Medicine Assmt/Plan - Assessment Assessment: ugib PNA HEMOPTYSIS CO2 RETENTION COPD EXACERBATION PARKINGS HTN GERD - Plan Plan: CONTINUE WITH IV ABX BRONCHODILATORS AND SUPPLEMENTAL OXYGEN FOLLOW UP LABS IN AM CONTINUE CURRENT PLAN OF CARE - Plan Plan: monitor h and h will add ppi will refer to gi Nutritional Asmnt/Malnutr-PDOC - Dietary Evaluation Malnutrition Findings (Please click <Entered> for more info): Nutritional Asmnt/Malnutrition Start: 09/14/17 13: 12 Text: Status: Complete Freq: Document 09/14/17 13:12 ESTRELLA (Rec: 09/14/17 13:25 LCHENG [email or web address]) Nutritional Asmnt/Malnutrition Patient General Information Nutritional Screening Moderate Risk Diagnosis hemoptysis Pertinent Medical Hx/Surgical Hx COPD, Parkinson's, HTN, hypercholesterolemia, GERD, schizophrenia, Dementia Subjective Information Pt seen lying in bed, awake and alert. pt reported appetitie OK as usual, not used to eat this large portion , denied chewing/swallowing problem. Per notes PO intake was 75% for first 2 days after admission, trending to 25-50% in last 2 days. Current Diet Order/ Nutrition Support CCHO, JOSE ROBERTO, mech soft finely chopped Pertinent Medications duoneb, colace, iron, culturelle, vitamin D3, protonix Pertinent Labs 09/14 Na 134, K 3.9, Cl 100, BUN 23, Cr 0.7, Ca 8.5 Nutritional Hx/Data Height 1.73 m Height (Calculated Centimeters) 172.7 Current Weight (lbs) 63.503 kg Weight (Calculated Kilograms) 63.5 Weight (Calculated Grams) 25239.9 [place] Body Weight 154 % [place] Body Weight 91 Body Mass Index (BMI) 21.2 Weight Status Approriate GI Symptoms GI Symptoms None Last BM 09/10 Difficult in: None Skin Integrity/Comment: intact, dryness Current %PO Poor (25-49%) Estimated Nutritional Goals BEE in Kcals: Using Current wt Calories/Kcals/Kg 25-30 Kcals Calculated 3052-0326 Protein: Using Current wt Protein g/k Protein Calculated 64 Fluid: ml 3091-8595 Nutritional Problem 1. Problem Problem inadequate food intake Etiology appetite low Signs/Symptoms: PO intake 25-50% Malnutrition Alert Protein-Calorie Malnutrition N/A Is there a minimum of two criteria No selected? Query Text:Check all the applicable criteria. A minimum of two criteria are recommended for diagnosis of either severe or non-severe malnutrition. Intervention/Recommendation Comments 1. Recommend regular diet for liberization d/t low PO intake . 2. Monitor PO intake, wt, labs and skin integrity. If PO intake continue <50%, will consider appetite stimulant. 3. F/U as high risk in 2-3 days, 1/3-/4 Expected Outcomes/Goals Expected Outcomes/Goals 1. PO intake to meet at least 75% of nutritional needs. 2. Wt stability, skin to remain intact, labs to improve .
[2017-09-14] MEDS: Budesonide 0.5 Mg/2 mL Ud HHN SCH (18:59)
--- NOTE | 2017-09-14 20:47 | Progress Notes ---
DATE: 09/14/2017 SUBJECTIVE: Staff was spoken to. The patient was interviewed and noted to be dysphoric. Coping skills are noted to be poor. No side effects to the medications are noted. The patient has been currently on Zyprexa and has been able to tolerate the medications. Sleep is noted to be fair and appetite is noted to be poor. The patient's aggressive behavior seems to be under control. No major side effects are noted. The patient is being provided with supportive psychotherapy. ASSESSMENT: The patient is still presenting with confusion. PLAN: To continue the patient with the supportive therapy, encourage the patient to verbalize the concerns. The patient is going to be continued on the olanzapine and followed up. [facility]# [id number]
[2017-09-15] MEDS: Albuterol Nebulizer 2.5mg/3mL HHN SCH ×2 (07:16→11:17)
[2017-09-15] MEDS: Ipratropium Neb 0.5 mg/2.5 mL UD HHN SCH ×2 (07:17→11:17)
[2017-09-15] MEDS: Budesonide 0.5 Mg/2 mL Ud HHN SCH ×2 (07:17→18:45)
[2017-09-15] MEDS: Polyvinyl Alcohol Ophth Soln 15 mL Bottle LEFT EYE SCH ×4 (09:23→21:25)
[2017-09-15] MEDS: Vitamin D3 2,000 IU SGL PO SCH (09:31)
[2017-09-15] MEDS: Ferrous Sulfate 325 MG TAB PO SCH (09:32)
[2017-09-15] MEDS: PANCREAZE PO SCH (09:33)
[2017-09-15] MEDS: Lactobacillus Rhamnosus GG 15 Billion CFU CAP.SPRINK PO SCH (09:33)
[2017-09-15] MEDS: Lactulose 10 Gm/15 mL 30mL UDC PO SCH ×2 (09:33→16:32)
[2017-09-15] MEDS: Multivitamin w/ Minerals Tab PO SCH (09:33)
--- NOTE | 2017-09-15 10:25 | Internal Medicine Prog Note ---
Internal Medicine Subjective - Subjective Service Date: 09/15/17 (complains of left shoulder pain, unable to move. examined left shoulder no edema no redness noted patient is able to do range of motion but with pain. ) Patient is:: awake, verbal Patient Complaints of:: cough, other (left shoulder pain) Per staff patient has:: tolerating meds Internal Medicine Objective - Results Result Diagrams: 09/14/17 05:45 09/14/17 05:45 Recent Labs: Laboratory Last Values WBC 8.4 Th/cmm (4.8-10.8) D 09/14/17 05:45 RBC 3.68 Mil/cmm (3.80-5.80) L 09/14/17 05:45 Hgb 11.0 gm/dL (12-16) L 09/14/17 05:45 Hct 33.2 % (41.0-60) L 09/14/17 05:45 MCV 90.1 fl (80-99) 09/14/17 05:45 MCH 29.8 pg (27.0-31.0) 09/14/17 05:45 MCHC Differential 33.0 pg (28.0-36.0) 09/14/17 05:45 RDW 15.3 % (11.5-20.0) 09/14/17 05:45 Plt Count 269 Th/cmm (150-400) 09/14/17 05:45 MPV 6.5 fl 09/14/17 05:45 Neutrophils % 61.6 % (40.0-80.0) 09/14/17 05:45 Band Neutrophils % 2 % (0-10) 09/12/17 08:35 Lymphocytes % 26.1 % (20.0-50.0) 09/14/17 05:45 Monocytes % 8.7 % (2.0-10.0) 09/14/17 05:45 Eosinophils % 2.6 % (0.0-5.0) 09/14/17 05:45 Basophils % 1.0 % (0.0-2.0) 09/14/17 05:45 Neutrophils (Manual) 94 % (40-80) H 09/12/17 08:35 Lymphocytes 2 % (20-50) L 09/12/17 08:35 Monocytes 2 % (2-10) 09/12/17 08:35 PT 11.0 SECONDS (9.5-11.5) 09/14/17 05:45 INR 1.06 (0.5-1.4) 09/14/17 05:45 PTT (Actin FS) 24.8 SECONDS (26.0-38.0) L 09/08/17 23:30 Specimen Source Arterial 09/11/17 09:20 Sample Site Right Radial 09/11/17 09:20 pH 7.46 (7.35-7.45) H 09/11/17 09:20 pCO2 46.0 mmHg (35.0-45.0) H 09/11/17 09:20 pO2 129.0 mmHg (80.0-100.0) H 09/11/17 09:20 HCO3 31.1 mEq/L (20.0-26.0) H 09/11/17 09:20 Base Excess 7.8 mEq/L (-3.0-3.0) H 09/11/17 09:20 O2 Saturation 99.0 % (92.0-100.0) 09/11/17 09:20 [place]mond Test Positive 09/11/17 09:20 Vent Rate N/A 09/11/17 09:20 Inspired O2 28% 09/11/17 09:20 Tidal Volume N/A 09/11/17 09:20 PEEP N/A 09/11/17 09:20 Pressure (ins/psv/peep) N/A 09/11/17 09:20 Critical Value HSTEHNO 09/11/17 09:20 Sodium 134 mEq/L (136-145) L 09/14/17 05:45 Potassium 3.9 mEq/L (3.5-5.1) 09/14/17 05:45 Chloride 100 mEq/L (98-107) 09/14/17 05:45 Carbon Dioxide 33.0 mEq/L (21.0-31.0) H 09/14/17 05:45 Anion Gap 4.9 (7.0-16.0) L 09/14/17 05:45 BUN 23 mg/dL (7-25) 09/14/17 05:45 Creatinine 0.7 mg/dL (0.7-1.3) 09/14/17 05:45 Est GFR ( Amer) TNP 09/14/17 05:45 Est GFR (Non-Af Amer) TNP 09/14/17 05:45 BUN/Creatinine Ratio 32.9 09/14/17 05:45 Glucose 99 mg/dL (70-105) 09/14/17 05:45 Hemoglobin A1c % 6.2 % (4.0-6.0) H 09/08/17 00:11 Calcium 8.5 mg/dL (8.6-10.3) L 09/14/17 05:45 Total Bilirubin 0.3 mg/dL (0.3-1.0) 09/14/17 05:45 AST 22 U/L (13-39) 09/14/17 05:45 ALT 7 U/L (7-52) 09/14/17 05:45 Alkaline Phosphatase 58 U/L (34-104) 09/14/17 05:45 Ammonia 55 umol/L (16-53) H 09/13/17 05:00 Troponin I 0.01 ng/mL (0.01-0.05) 09/08/17 23:30 B-Natriuretic Peptide 34.1 pg/mL (5.0-100.0) 09/08/17 23:30 Total Protein 5.7 gm/dL (6.0-8.3) L 09/14/17 05:45 Albumin 3.3 gm/dL (4.2-5.5) L 09/14/17 05:45 Globulin 2.4 gm/dL 09/14/17 05:45 Albumin/Globulin Ratio 1.4 (1.0-1.8) 09/14/17 05:45 TSH 1.30 uIU/ml (0.34-5.60) 09/11/17 05:30 Urine Source RANDOM 09/10/17 10:00 Urine Color YELLOW 09/10/17 10:00 Urine Clarity CLEAR (CLEAR) 09/10/17 10:00 Urine pH 6.0 (4.6 - 8.0) 09/10/17 10:00 Ur Specific [place] 1.010 (1.005-1.030) 09/10/17 10:00 Urine Protein NEGATIVE mg/dL (NEGATIVE) 09/10/17 10:00 Urine Glucose (UA) NEGATIVE mg/dL (NEGATIVE) 09/10/17 10:00 Urine Ketones NEGATIVE mg/dL (NEGATIVE) 09/10/17 10:00 Urine Blood NEGATIVE (NEGATIVE) 09/10/17 10:00 Urine Nitrate NEGATIVE (NEGATIVE) 09/10/17 10:00 Urine Bilirubin NEGATIVE (NEGATIVE) 09/10/17 10:00 Urine Urobilinogen 0.2 E.U./dL (0.2 - 1.0) 09/10/17 10:00 Ur Leukocyte Esterase NEGATIVE (NEGATIVE) 09/10/17 10:00 Influenza A (Rapid) NEG FOR INF A 09/13/17 04:25 Influenza B (Rapid) NEG FOR INF B 09/13/17 04:25 - Physical Exam Vitals and I&O: Vital Signs Temp 98.0 F 09/15/17 04:00 Pulse 66 09/15/17 09:31 Resp 20 09/15/17 08:38 BP 136/66 09/15/17 09:31 Pulse Ox 96 09/15/17 07:19 Intake & Output 09/14/17 09/15/17 09/15/17 18:59 06:59 18:59 Intake Total 350 300 Output Total 1 Balance 349 300 Weight (lbs) 140 lb 140 lb Intake: Intake, IV Amount 50 50 Cefepime 1 gm In Dextrose 50 50 5% 50 ml @ 100 mls/hr IV Q12HR [facility] Rx#:[id number] Oral 300 250 Output: Urine/Stool Mix 1 Other: # Voids 4 3 # Bowel Movements 1 0 Stool Characteristics Soft Soft Formed Formed Brown Brown Active Medications: Current Medications Acetaminophen (Tylenol) 650 mg PO Q4H PRN PRN Reason: Pain or Fever >101 Stop: 11/08/17 03:14 Last Admin: 09/14/17 22:51 Dose: 650 mg Albuterol Sulfate (Albuterol 2.5mg/3ml Neb Ud) 2.5 mg HHN [id number] [facility] Stop: 09/16/17 06:59 Last Admin: 09/15/17 07:16 Dose: 2.5 mg Albuterol/Ipratropium (Duoneb Neb) 3 ml HHN [id number] [facility] Stop: 11/10/17 06:59 Last Admin: 09/14/17 18:58 Dose: 3 ml Artificial Tears (Artificial Tears Ophth Soln) 1 drop LEFT EYE QID [facility] Stop: 02/25/18 16:59 Last Admin: 09/15/17 09:23 Dose: 1 drop Budesonide (Pulmicort) 0.5 mg HHN BIDRT [facility] Stop: 11/10/17 06:59 Last Admin: 09/15/17 07:17 Dose: 0.5 mg Carbidopa/Levodopa (Sinemet 25 Mg-250 Mg) 1 tab PO BID [facility] Stop: 11/10/17 08:59 Last Admin: 09/15/17 09:31 Dose: Not Given Divalproex Sodium (Depakote Sprinkle) 125 mg PO BID [facility] PRN Reason: Protocol Stop: 11/08/17 16:59 Last Admin: 09/15/17 09:31 Dose: Not Given Docusate Sodium (Colace) 100 mg PO BID [facility] Stop: 11/08/17 16:59 Last Admin: 09/15/17 09:31 Dose: Not Given Enalapril Maleate (Vasotec) 2.5 mg PO DAILY [facility] Stop: 11/09/17 08:59 Last Admin: 09/15/17 09:31 Dose: Not Given Ferrous Sulfate (Iron) 325 mg PO DAILY [facility] Stop: 11/09/17 08:59 Last Admin: 09/15/17 09:32 Dose: Not Given Guaifenesin (Robitussin) 200 mg PO Q4HR PRN PRN Reason: Cough or Congestion Stop: 11/08/17 13:45 Cefepime HCl 1 gm/ Dextrose 50 mls @ 100 mls/hr IV Q12HR [facility] Stop: 11/08/17 08:59 Last Admin: 09/15/17 09:11 Dose: 100 mls/hr Ipratropium [place] (Atrovent Neb 0.5mg/2.5ml) 0.5 mg HHN [id number] [facility] Stop: 09/16/17 06:59 Last Admin: 09/15/17 07:17 Dose: 0.5 mg Lactobacillus Rhamnosus (Culturelle 15b) 1 each PO DAILY [facility] Stop: 11/09/17 08:59 Last Admin: 09/15/17 09:33 Dose: Not Given Lactulose (Cephulac) 20 gm PO BID [facility] Stop: 11/12/17 16:59 Last Admin: 09/15/17 09:33 Dose: Not Given Magnesium Hydroxide (Milk Of Magnesia) 30 ml PO DAILY PRN PRN Reason: Constipation Stop: 11/08/17 13:36 Memantine (Namenda) 10 mg PO BID [facility] Stop: 11/08/17 16:59 Last Admin: 09/15/17 09:33 Dose: Not Given Miscellaneous (Vte Chemical Prophylaxis Screen/ Admission) 1 ea [facility] PRN PRN PRN Reason: PROTOCOL Stop: 11/08/17 12:29 Miscellaneous (Misc Oral Cap) 1 cap PO DAILY [facility] Stop: 11/09/17 08:59 Last Admin: 09/15/17 09:33 Dose: Not Given Miscellaneous (Probiotic Screen) 1 ea [facility] PRN PRN PRN Reason: PROTOCOL Stop: 11/12/17 10:29 Olanzapine (Zyprexa) 2.5 mg PO HS [facility] PRN Reason: Protocol Stop: 11/08/17 20:59 Last Admin: 09/14/17 21:51 Dose: 2.5 mg Ondansetron HCl (Zofran) 4 mg IV Q4H PRN PRN Reason: Nausea / Vomiting Stop: 11/08/17 02:55 Pantoprazole Sodium (Protonix) 40 mg IVP BID [facility] Stop: 11/11/17 16:59 Last Admin: 09/15/17 09:11 Dose: 40 mg Simvastatin (Zocor) 20 mg PO HS [facility] PRN Reason: Protocol Stop: 11/08/17 20:59 Last Admin: 09/14/17 21:51 Dose: 20 mg Vitamin D (Vitamin D3) 2,000 iu PO DAILY [facility] Stop: 11/09/17 08:59 Last Admin: 09/15/17 09:31 Dose: Not Given General: weak, alert HEENT: PERRLA Neck: Supple Lungs: ronchi Cardiovascular: RRR, Normal S1, Normal S2, without murmur Abdomen: soft, non-tender, non-distended, positive bowel sound Neurological: alert Internal Medicine Assmt/Plan - Assessment Assessment: LEFT SHOULDER PAIN PNA HEMOPTYSIS CO2 RETENTION COPD EXACERBATION PARKINGS HTN GERD - Plan Plan: XRAY LEFT SHOULDER CONTINUE WITH IV ABX BRONCHODILATORS AND SUPPLEMENTAL OXYGEN FOLLOW UP LABS IN AM CONTINUE CURRENT PLAN OF CARE Nutritional Asmnt/Malnutr-PDOC - Dietary Evaluation Malnutrition Findings (Please click <Entered> for more info): Nutritional Asmnt/Malnutrition Start: 09/14/17 13: 12 Text: Status: Complete Freq: Document 09/14/17 13:12 LCHENG (Rec: 09/14/17 13:25 LCHENG [email or web address]) Nutritional Asmnt/Malnutrition Patient General Information Nutritional Screening Moderate Risk Diagnosis hemoptysis Pertinent Medical Hx/Surgical Hx COPD, Parkinson's, HTN, hypercholesterolemia, GERD, schizophrenia, Dementia Subjective Information Pt seen lying in bed, awake and alert. pt reported appetitie OK as usual, not used to eat this large portion , denied chewing/swallowing problem. Per notes PO intake was 75% for first 2 days after admission, trending to 25-50% in last 2 days. Current Diet Order/ Nutrition Support CCHO, JOSE ROBERTO, mech soft finely chopped Pertinent Medications duoneb, colace, iron, culturelle, vitamin D3, protonix Pertinent Labs 09/14 Na 134, K 3.9, Cl 100, BUN 23, Cr 0.7, Ca 8.5 Nutritional Hx/Data Height 5 ft 8 in Height (Calculated Centimeters) 172.7 Current Weight (lbs) 140 lb Weight (Calculated Kilograms) 63.5 Weight (Calculated Grams) 13451.9 [place] Body Weight 154 % [place] Body Weight 91 Body Mass Index (BMI) 21.2 Weight Status Approriate GI Symptoms GI Symptoms None Last BM 09/10 Difficult in: None Skin Integrity/Comment: intact, dryness Current %PO Poor (25-49%) Estimated Nutritional Goals BEE in Kcals: Using Current wt Calories/Kcals/Kg 25-30 Kcals Calculated 2999-7668 Protein: Using Current wt Protein g/k Protein Calculated 64 Fluid: ml 7039-3055 Nutritional Problem 1. Problem Problem inadequate food intake Etiology appetite low Signs/Symptoms: PO intake 25-50% Malnutrition Alert Protein-Calorie Malnutrition N/A Is there a minimum of two criteria No selected? Query Text:Check all the applicable criteria. A minimum of two criteria are recommended for diagnosis of either severe or non-severe malnutrition. Intervention/Recommendation Comments 1. Recommend regular diet for liberization d/t low PO intake . 2. Monitor PO intake, wt, labs and skin integrity. If PO intake continue <50%, will consider appetite stimulant. 3. F/U as high risk in 2-3 days, 1/3-1/4 Expected Outcomes/Goals Expected Outcomes/Goals 1. PO intake to meet at least 75% of nutritional needs. 2. Wt stability, skin to remain intact, labs to improve .
--- NOTE | 2017-09-15 11:02 | Diagnostic Imaging Report ---
Left shoulder (3 views) HISTORY: Pain There is narrowing hypertrophic bone formation about the acromioclavicular joint. Slight irregularity noted about the margin of the greater tuberosity. No acute abnormalities. No fractures. No dislocation. IMPRESSION: 1. No acute abnormalities 2. Degenerative changes
[2017-09-15 11:04] LABS: % BASOPHILS 0.3 % (0.0-2.0); % EOSINOPHILS 5.5 % (0.0-5.0); % MONOCYTES 8.2 % (2.0-10.0); EOSINOPHILE ABSOLUTE 0.5 Th/cmm (0.1-0.4); HEMOGLOBIN 12.3 gm/dL (12-16); LYMPHOCYTE ABSOLUTE 2.2 Th/cmm (1.5-3.0); MEAN CELL VOLUME 92.2 fl (80-99); MEAN CORPUSCULAR HEMOGLOBIN 29.9 pg (27.0-31.0); MEAN CORPUSCULAR HGB CONC 32.5 pg (28.0-36.0); MEAN PLATELET VOLUME 7.1 fl; MONOCYTE ABSOLUTE 0.7 Th/cmm (0.3-1.0); NEUTROPHILE ABSOLUTE 5.4 Th/cmm (1.8-8.0); PLATELET COUNT 227 Th/cmm (150-400); RED BLOOD COUNT 4.11 Mil/cmm (3.80-5.80); RED CELL DISTRIBUTION WIDTH 15.4 % (11.5-20.0); WHITE BLOOD COUNT 8.8 Th/cmm (4.8-10.8)
[2017-09-15 11:06] LABS: HEMATOCRIT 37.9 % (41.0-60)
[2017-09-15 11:20] LABS: ANION GAP 14.8 (7.0-16.0); BUN - UREA NITROGEN 19 mg/dL (7-25); CALCIUM SERUM 8.4 mg/dL (8.6-10.3); CARBON DIOXIDE 21.9 mEq/L (21.0-31.0); CHLORIDE 99 mEq/L (98-107); CREATININE - SERUM 0.7 mg/dL (0.7-1.3); GLUCOSE 92 mg/dL (70-105); POTASSIUM SERUM 4.7 mEq/L (3.5-5.1); SODIUM SERUM 131 mEq/L (136-145)
--- NOTE | 2017-09-15 12:40 | Operative Report ---
DATE OF SURGERY: 09/15/2017 INPATIENT GASTROINTESTINAL PROCEDURE PROCEDURE: EGD with biopsy. REFERRING PHYSICIAN: Dr. Shaver. REASON FOR PROCEDURE: Hematemesis. CONSENT: Risks, benefits, alternatives, nature, indication, possible outcomes were discussed. Mentioned bleeding, infection, perforation, , disability, cardiopulmonary distress and arrest, missed lesion and cancers, need for surgery. The patient and agreeing alliance party provided informed consent. PREOPERATIVE DIAGNOSIS: Hematemesis. POSTOPERATIVE DIAGNOSES: Esophagitis and hiatal hernia. MEDICATIONS: Provided by anesthesiologist. The patient has underlying psychiatric disorder. DESCRIPTION OF PROCEDURE: The patient was placed in left side. Upper endoscope was advanced from mouth and second portion of duodenum. Scope brought back in stomach. Retroflexion view of fundus, cardia, lesser curvature, hiatal hernia. Scope was straightened and slowly withdrawn through esophagus. Biopsies were taken. Scope was then removed. COMPLICATIONS: None. FINDINGS: 1. GE junction at 40 cm with a medium sized hiatal hernia. 2. Esophagitis, likely source of bleeding not actively bleeding at this time status post biopsy. 3. Mild gastritis, status post biopsy. 4. Normal duodenum. RECOMMENDATIONS: 1. Follow up biopsy. 2. Provide the patient with Protonix. 3. Consider repeat EGD in a year based upon the patient's performance status. Thank you for allowing me to participate. Please call me if any questions. JOB# [id number]
[2017-09-15] MEDS: Albuterol/Ipratropium Neb 3 ML AERS HHN SCH (18:44)
[2017-09-16 02:17] LABS: FOLIC ACID 7.1 ng/mL (>3.0)
[2017-09-16] MEDS ORDERED: Albuterol/Ipratropium Neb 3 ML AERS HHN ONE ×2 (07:22→11:31)
[2017-09-16] MEDS ORDERED: Budesonide 0.5 Mg/2 mL Ud HHN ONE (07:22)
[2017-09-16] MEDS: Albuterol/Ipratropium Neb 3 ML AERS HHN SCH ×2 (07:45→12:46)
[2017-09-16] MEDS: Budesonide 0.5 Mg/2 mL Ud HHN SCH (07:45)
[2017-09-16] MEDS: Lactobacillus Rhamnosus GG 15 Billion CFU CAP.SPRINK PO SCH (09:01)
[2017-09-16] MEDS: Multivitamin w/ Minerals Tab PO SCH (09:01)
[2017-09-16] MEDS: Vitamin D3 2,000 IU SGL PO SCH (09:01)
[2017-09-16] MEDS: Lactulose 10 Gm/15 mL 30mL UDC PO SCH (09:02)
[2017-09-16] MEDS: Ferrous Sulfate 325 MG TAB PO SCH (09:02)
[2017-09-16] MEDS: PANCREAZE PO SCH (09:03)
[2017-09-16] MEDS: Polyvinyl Alcohol Ophth Soln 15 mL Bottle LEFT EYE SCH ×2 (09:04→13:54)
--- NOTE | 2017-09-16 10:46 | Internal Medicine Prog Note ---
Internal Medicine Subjective - Subjective Service Date: 09/16/17 Patient is:: awake, verbal Patient Complaints of:: cough, other (left shoulder pain) Per staff patient has:: tolerating meds Internal Medicine Objective - Results Result Diagrams: 09/15/17 06:00 09/15/17 10:00 Recent Labs: Laboratory Last Values WBC 8.8 Th/cmm (4.8-10.8) 09/15/17 06:00 RBC 4.11 Mil/cmm (3.80-5.80) 09/15/17 06:00 Hgb 12.3 gm/dL (12-16) 09/15/17 06:00 Hct 37.9 % (41.0-60) L D 09/15/17 06:00 MCV 92.2 fl (80-99) 09/15/17 06:00 MCH 29.9 pg (27.0-31.0) 09/15/17 06:00 MCHC Differential 32.5 pg (28.0-36.0) 09/15/17 06:00 RDW 15.4 % (11.5-20.0) 09/15/17 06:00 Plt Count 227 Th/cmm (150-400) 09/15/17 06:00 MPV 7.1 fl 09/15/17 06:00 Neutrophils % 61.0 % (40.0-80.0) 09/15/17 06:00 Band Neutrophils % 2 % (0-10) 09/12/17 08:35 Lymphocytes % 25.0 % (20.0-50.0) 09/15/17 06:00 Monocytes % 8.2 % (2.0-10.0) 09/15/17 06:00 Eosinophils % 5.5 % (0.0-5.0) H 09/15/17 06:00 Basophils % 0.3 % (0.0-2.0) 09/15/17 06:00 Neutrophils (Manual) 94 % (40-80) H 09/12/17 08:35 Lymphocytes 2 % (20-50) L 09/12/17 08:35 Monocytes 2 % (2-10) 09/12/17 08:35 PT 11.0 SECONDS (9.5-11.5) 09/14/17 05:45 INR 1.06 (0.5-1.4) 09/14/17 05:45 PTT (Actin FS) 24.8 SECONDS (26.0-38.0) L 09/08/17 23:30 Specimen Source Arterial 09/11/17 09:20 Sample Site Right Radial 09/11/17 09:20 pH 7.46 (7.35-7.45) H 09/11/17 09:20 pCO2 46.0 mmHg (35.0-45.0) H 09/11/17 09:20 pO2 129.0 mmHg (80.0-100.0) H 09/11/17 09:20 HCO3 31.1 mEq/L (20.0-26.0) H 09/11/17 09:20 Base Excess 7.8 mEq/L (-3.0-3.0) H 09/11/17 09:20 O2 Saturation 99.0 % (92.0-100.0) 09/11/17 09:20 [place] Test Positive 09/11/17 09:20 Vent Rate N/A 09/11/17 09:20 Inspired O2 28% 09/11/17 09:20 Tidal Volume N/A 09/11/17 09:20 PEEP N/A 09/11/17 09:20 Pressure (ins/psv/peep) N/A 09/11/17 09:20 Critical Value HSTEHNO 09/11/17 09:20 Sodium 131 mEq/L (136-145) L 09/15/17 10:00 Potassium 4.7 mEq/L (3.5-5.1) 09/15/17 10:00 Chloride 99 mEq/L (98-107) 09/15/17 10:00 Carbon Dioxide 21.9 mEq/L (21.0-31.0) 09/15/17 10:00 Anion Gap 14.8 (7.0-16.0) 09/15/17 10:00 BUN 19 mg/dL (7-25) 09/15/17 10:00 Creatinine 0.7 mg/dL (0.7-1.3) 09/15/17 10:00 Est GFR ( Amer) TNP 09/15/17 10:00 Est GFR (Non-Af Amer) TNP 09/15/17 10:00 BUN/Creatinine Ratio 27.1 09/15/17 10:00 Glucose 92 mg/dL (70-105) 09/15/17 10:00 POC Glucose 90 MG/DL (70 - 105) 09/15/17 11:11 Hemoglobin A1c % 6.2 % (4.0-6.0) H 09/08/17 00:11 Calcium 8.4 mg/dL (8.6-10.3) L 09/15/17 10:00 Total Bilirubin 0.3 mg/dL (0.3-1.0) 09/14/17 05:45 AST 22 U/L (13-39) 09/14/17 05:45 ALT 7 U/L (7-52) 09/14/17 05:45 Alkaline Phosphatase 58 U/L (34-104) 09/14/17 05:45 Ammonia 55 umol/L (16-53) H 09/13/17 05:00 Troponin I 0.01 ng/mL (0.01-0.05) 09/08/17 23:30 B-Natriuretic Peptide 34.1 pg/mL (5.0-100.0) 09/08/17 23:30 Total Protein 5.7 gm/dL (6.0-8.3) L 09/14/17 05:45 Albumin 3.3 gm/dL (4.2-5.5) L 09/14/17 05:45 Globulin 2.4 gm/dL 09/14/17 05:45 Albumin/Globulin Ratio 1.4 (1.0-1.8) 09/14/17 05:45 Vitamin B12 556 pg/mL (232-1245) 09/13/17 05:00 Folic Acid 7.1 ng/mL (>3.0) 09/13/17 05:00 TSH 1.30 uIU/ml (0.34-5.60) 09/11/17 05:30 Urine Source RANDOM 09/10/17 10:00 Urine Color YELLOW 09/10/17 10:00 Urine Clarity CLEAR (CLEAR) 09/10/17 10:00 Urine pH 6.0 (4.6 - 8.0) 09/10/17 10:00 Ur Specific [place] 1.010 (1.005-1.030) 09/10/17 10:00 Urine Protein NEGATIVE mg/dL (NEGATIVE) 09/10/17 10:00 Urine Glucose (UA) NEGATIVE mg/dL (NEGATIVE) 09/10/17 10:00 Urine Ketones NEGATIVE mg/dL (NEGATIVE) 09/10/17 10:00 Urine Blood NEGATIVE (NEGATIVE) 09/10/17 10:00 Urine Nitrate NEGATIVE (NEGATIVE) 09/10/17 10:00 Urine Bilirubin NEGATIVE (NEGATIVE) 09/10/17 10:00 Urine Urobilinogen 0.2 E.U./dL (0.2 - 1.0) 09/10/17 10:00 Ur Leukocyte Esterase NEGATIVE (NEGATIVE) 09/10/17 10:00 Influenza A (Rapid) NEG FOR INF A 09/13/17 04:25 Influenza B (Rapid) NEG FOR INF B 09/13/17 04:25 - Physical Exam Vitals and I&O: Vital Signs Temp 98.3 F 09/16/17 08:00 Pulse 66 09/16/17 09:02 Resp 16 09/16/17 08:00 BP 154/76 09/16/17 09:02 Pulse Ox 100 09/16/17 08:00 Intake & Output 09/15/17 09/16/17 09/16/17 18:59 06:59 18:59 Intake Total 100 250 120 Balance 100 250 120 Weight (lbs) 140 lb 140 lb 140 lb Intake: Intake, IV Amount 50 50 Cefepime 1 gm In Dextrose 50 50 5% 50 ml @ 100 mls/hr IV Q12HR [facility] Rx#:[id number] Oral 50 200 120 Other: # Voids 3 1 # Bowel Movements 0 Stool Characteristics Soft Soft Soft Formed Formed Formed Brown Brown Brown Active Medications: Current Medications Acetaminophen (Tylenol) 650 mg PO Q4H PRN PRN Reason: Pain or Fever >101 Stop: 11/08/17 03:14 Last Admin: 09/14/17 22:51 Dose: 650 mg Albuterol/Ipratropium (Duoneb Neb) 3 ml HHN [id number] [facility] Stop: 11/10/17 06:59 Last Admin: 09/15/17 18:44 Dose: 3 ml Artificial Tears (Artificial Tears Ophth Soln) 1 drop LEFT EYE QID [facility] Stop: 11/08/17 16:59 Last Admin: 09/16/17 09:04 Dose: 1 drop Budesonide (Pulmicort) 0.5 mg HHN BIDRT [facility] Stop: 11/10/17 06:59 Last Admin: 09/15/17 18:45 Dose: 0.5 mg Carbidopa/Levodopa (Sinemet 25 Mg-250 Mg) 1 tab PO BID [facility] Stop: 11/10/17 08:59 Last Admin: 09/16/17 09:01 Dose: 1 tab Divalproex Sodium (Depakote Sprinkle) 125 mg PO BID [facility] PRN Reason: Protocol Stop: 11/08/17 16:59 Last Admin: 09/16/17 09:01 Dose: 125 mg Docusate Sodium (Colace) 100 mg PO BID [facility] Stop: 11/08/17 16:59 Last Admin: 09/16/17 09:01 Dose: 100 mg Enalapril Maleate (Vasotec) 2.5 mg PO DAILY [facility] Stop: 11/09/17 08:59 Last Admin: 09/16/17 09:02 Dose: 2.5 mg Ferrous Sulfate (Iron) 325 mg PO DAILY [facility] Stop: 11/09/17 08:59 Last Admin: 09/16/17 09:02 Dose: 325 mg Guaifenesin (Robitussin) 200 mg PO Q4HR PRN PRN Reason: Cough or Congestion Stop: 11/08/17 13:45 Cefepime HCl 1 gm/ Dextrose 50 mls @ 100 mls/hr IV Q12HR [facility] Stop: 11/08/17 08:59 Last Admin: 09/16/17 09:03 Dose: 100 mls/hr Lactobacillus Rhamnosus (Culturelle 15b) 1 each PO DAILY [facility] Stop: 11/09/17 08:59 Last Admin: 09/16/17 09:01 Dose: 1 each Lactulose (Cephulac) 20 gm PO BID [facility] Stop: 11/12/17 16:59 Last Admin: 09/16/17 09:02 Dose: 20 gm Magnesium Hydroxide (Milk Of Magnesia) 30 ml PO DAILY PRN PRN Reason: Constipation Stop: 11/08/17 13:36 Memantine (Namenda) 10 mg PO BID [facility] Stop: 11/08/17 16:59 Last Admin: 09/16/17 09:01 Dose: 10 mg Miscellaneous (Vte Chemical Prophylaxis Screen/ Admission) 1 ea [facility] PRN PRN PRN Reason: PROTOCOL Stop: 11/08/17 12:29 Miscellaneous (Misc Oral Cap) 1 cap PO DAILY [facility] Stop: 11/09/17 08:59 Last Admin: 09/16/17 09:03 Dose: 1 cap Miscellaneous (Probiotic Screen) 1 ea [facility] PRN PRN PRN Reason: PROTOCOL Stop: 11/12/17 10:29 Olanzapine (Zyprexa) 2.5 mg PO HS [facility] PRN Reason: Protocol Stop: 11/08/17 20:59 Last Admin: 09/15/17 21:25 Dose: 2.5 mg Ondansetron HCl (Zofran) 4 mg IV Q4H PRN PRN Reason: Nausea / Vomiting Stop: 11/08/17 02:55 Pantoprazole Sodium (Protonix) 40 mg IVP BID [facility] Stop: 11/11/17 16:59 Last Admin: 09/16/17 09:04 Dose: 40 mg Simvastatin (Zocor) 20 mg PO HS [facility] PRN Reason: Protocol Stop: 11/08/17 20:59 Last Admin: 09/15/17 21:25 Dose: 20 mg Vitamin D (Vitamin D3) 2,000 iu PO DAILY [facility] Stop: 11/09/17 08:59 Last Admin: 09/16/17 09:01 Dose: 2,000 iu General: weak, alert HEENT: PERRLA Neck: Supple Lungs: ronchi Cardiovascular: RRR, Normal S1, Normal S2, without murmur Abdomen: soft, non-tender, non-distended, positive bowel sound Neurological: alert Internal Medicine Assmt/Plan - Assessment Assessment: LEFT SHOULDER PAIN ESOPHAGITIS HIATAL HERNIA PNA HEMOPTYSIS CO2 RETENTION COPD EXACERBATION PARKINGS HTN GERD - Plan Plan: LTAC EVAL CONTINUE WITH IV ABX BRONCHODILATORS AND SUPPLEMENTAL OXYGEN FOLLOW UP LABS IN AM CONTINUE CURRENT PLAN OF CARE Nutritional Asmnt/Malnutr-PDOC - Dietary Evaluation Malnutrition Findings (Please click <Entered> for more info): Nutritional Asmnt/Malnutrition Start: 09/14/17 13: 12 Text: Status: Complete Freq: Document 09/14/17 13:12 ESTRELLA (Rec: 09/14/17 13:25 ESTRELLA [email or web address]) Nutritional Asmnt/Malnutrition Patient General Information Nutritional Screening Moderate Risk Diagnosis hemoptysis Pertinent Medical Hx/Surgical Hx COPD, Parkinson's, HTN, hypercholesterolemia, GERD, schizophrenia, Dementia Subjective Information Pt seen lying in bed, awake and alert. pt reported appetitie OK as usual, not used to eat this large portion , denied chewing/swallowing problem. Per notes PO intake was 75% for first 2 days after admission, trending to 25-50% in last 2 days. Current Diet Order/ Nutrition Support CCHO, JOSE ROBERTO, mech soft finely chopped Pertinent Medications duoneb, colace, iron, culturelle, vitamin D3, protonix Pertinent Labs 09/14 Na 134, K 3.9, Cl 100, BUN 23, Cr 0.7, Ca 8.5 Nutritional Hx/Data Height 5 ft 8 in Height (Calculated Centimeters) 172.7 Current Weight (lbs) 140 lb Weight (Calculated Kilograms) 63.5 Weight (Calculated Grams) 65190.9 [place] Body Weight 154 % [place] Body Weight 91 Body Mass Index (BMI) 21.2 Weight Status Approriate GI Symptoms GI Symptoms None Last BM 09/10 Difficult in: None Skin Integrity/Comment: intact, dryness Current %PO Poor (25-49%) Estimated Nutritional Goals BEE in Kcals: Using Current wt Calories/Kcals/Kg 25-30 Kcals Calculated 8172-7838 Protein: Using Current wt Protein g/k Protein Calculated 64 Fluid: ml 0538-6052 Nutritional Problem 1. Problem Problem inadequate food intake Etiology appetite low Signs/Symptoms: PO intake 25-50% Malnutrition Alert Protein-Calorie Malnutrition N/A Is there a minimum of two criteria No selected? Query Text:Check all the applicable criteria. A minimum of two criteria are recommended for diagnosis of either severe or non-severe malnutrition. Intervention/Recommendation Comments 1. Recommend regular diet for liberization d/t low PO intake . 2. Monitor PO intake, wt, labs and skin integrity. If PO intake continue <50%, will consider appetite stimulant. 3. F/U as high risk in 2-3 days, 1/3-1/4 Expected Outcomes/Goals Expected Outcomes/Goals 1. PO intake to meet at least 75% of nutritional needs. 2. Wt stability, skin to remain intact, labs to improve .
--- NOTE | 2017-09-16 11:33 | Pathology Report ---
[id number] Collection date: 09/15/2017 Surgeon: Dr. Priya Duarte Specimen Description: 1. Antrum biopsy 2. Esophageal biopsy Gross Description: Part I: Received in formalin are two ling soft tissue fragments ranging from 0.1 to 0.2 cm in greatest dimension. Totally submitted in one cassette labeled A. Gross Description: Part II: Received in formalin is a single ling soft tissue fragment measuring 0.2 cm in greatest dimension. Totally submitted in one cassette labeled B. Microscopic Description: Part I: The histologic sections show gastric mucosa with mild chronic inflammation present consisting of lymphocytes and plasma cells. The Giemsa stain shows no evidence for Helicobacter pylori. Diagnosis: Part I: 1. Mild chronic gastritis, antrum biopsy. 2. The Giemsa stain is negative for Helicobacter pylori. Microscopic Description: Part II: The histologic sections show partially ulcerated squamous mucosa consistent with esophageal biopsy. There are areas of acute and chronic inflammation and granulation tissue reaction. The Alcian blue stain shows no significant abnormalities. The PAS stain shows no evidence for fungal organisms. Diagnosis: Part II: Partially ulcerated squamous mucosa showing acute and chronic inflammation and granulation tissue reaction (esophageal biopsy). JOB# [id number] MTDD
[2017-09-16] MEDS ORDERED: metroNIDAZOLE 500mg/NS 100mL 500 MG/100 ML BAG IV SCH (13:00)
--- NOTE | 2017-09-16 13:08 | GI Progress Note ---
Subjective - Review of Systems Subjective: NO EVENTS Objective - Results Result Diagrams: 09/15/17 06:00 09/15/17 10:00 Recent Labs: Laboratory Last Values WBC 8.8 Th/cmm (4.8-10.8) 09/15/17 06:00 RBC 4.11 Mil/cmm (3.80-5.80) 09/15/17 06:00 Hgb 12.3 gm/dL (12-16) 09/15/17 06:00 Hct 37.9 % (41.0-60) L D 09/15/17 06:00 MCV 92.2 fl (80-99) 09/15/17 06:00 MCH 29.9 pg (27.0-31.0) 09/15/17 06:00 MCHC Differential 32.5 pg (28.0-36.0) 09/15/17 06:00 RDW 15.4 % (11.5-20.0) 09/15/17 06:00 Plt Count 227 Th/cmm (150-400) 09/15/17 06:00 MPV 7.1 fl 09/15/17 06:00 Neutrophils % 61.0 % (40.0-80.0) 09/15/17 06:00 Band Neutrophils % 2 % (0-10) 09/12/17 08:35 Lymphocytes % 25.0 % (20.0-50.0) 09/15/17 06:00 Monocytes % 8.2 % (2.0-10.0) 09/15/17 06:00 Eosinophils % 5.5 % (0.0-5.0) H 09/15/17 06:00 Basophils % 0.3 % (0.0-2.0) 09/15/17 06:00 Neutrophils (Manual) 94 % (40-80) H 09/12/17 08:35 Lymphocytes 2 % (20-50) L 09/12/17 08:35 Monocytes 2 % (2-10) 09/12/17 08:35 PT 11.0 SECONDS (9.5-11.5) 09/14/17 05:45 INR 1.06 (0.5-1.4) 09/14/17 05:45 PTT (Actin FS) 24.8 SECONDS (26.0-38.0) L 09/08/17 23:30 Specimen Source Arterial 09/11/17 09:20 Sample Site Right Radial 09/11/17 09:20 pH 7.46 (7.35-7.45) H 09/11/17 09:20 pCO2 46.0 mmHg (35.0-45.0) H 09/11/17 09:20 pO2 129.0 mmHg (80.0-100.0) H 09/11/17 09:20 HCO3 31.1 mEq/L (20.0-26.0) H 09/11/17 09:20 Base Excess 7.8 mEq/L (-3.0-3.0) H 09/11/17 09:20 O2 Saturation 99.0 % (92.0-100.0) 09/11/17 09:20 Desmond Test Positive 09/11/17 09:20 Vent Rate N/A 09/11/17 09:20 Inspired O2 28% 09/11/17 09:20 Tidal Volume N/A 09/11/17 09:20 PEEP N/A 09/11/17 09:20 Pressure (ins/psv/peep) N/A 09/11/17 09:20 Critical Value HSTEHNO 09/11/17 09:20 Sodium 131 mEq/L (136-145) L 09/15/17 10:00 Potassium 4.7 mEq/L (3.5-5.1) 09/15/17 10:00 Chloride 99 mEq/L (98-107) 09/15/17 10:00 Carbon Dioxide 21.9 mEq/L (21.0-31.0) 09/15/17 10:00 Anion Gap 14.8 (7.0-16.0) 09/15/17 10:00 BUN 19 mg/dL (7-25) 09/15/17 10:00 Creatinine 0.7 mg/dL (0.7-1.3) 09/15/17 10:00 Est GFR ( Amer) TNP 09/15/17 10:00 Est GFR (Non-Af Amer) TNP 09/15/17 10:00 BUN/Creatinine Ratio 27.1 09/15/17 10:00 Glucose 92 mg/dL (70-105) 09/15/17 10:00 POC Glucose 90 MG/DL (70 - 105) 09/15/17 11:11 Hemoglobin A1c % 6.2 % (4.0-6.0) H 09/08/17 00:11 Calcium 8.4 mg/dL (8.6-10.3) L 09/15/17 10:00 Total Bilirubin 0.3 mg/dL (0.3-1.0) 09/14/17 05:45 AST 22 U/L (13-39) 09/14/17 05:45 ALT 7 U/L (7-52) 09/14/17 05:45 Alkaline Phosphatase 58 U/L (34-104) 09/14/17 05:45 Ammonia 55 umol/L (16-53) H 09/13/17 05:00 Troponin I 0.01 ng/mL (0.01-0.05) 09/08/17 23:30 B-Natriuretic Peptide 34.1 pg/mL (5.0-100.0) 09/08/17 23:30 Total Protein 5.7 gm/dL (6.0-8.3) L 09/14/17 05:45 Albumin 3.3 gm/dL (4.2-5.5) L 09/14/17 05:45 Globulin 2.4 gm/dL 09/14/17 05:45 Albumin/Globulin Ratio 1.4 (1.0-1.8) 09/14/17 05:45 Vitamin B12 556 pg/mL (232-1245) 09/13/17 05:00 Folic Acid 7.1 ng/mL (>3.0) 09/13/17 05:00 TSH 1.30 uIU/ml (0.34-5.60) 09/11/17 05:30 Urine Source RANDOM 09/10/17 10:00 Urine Color YELLOW 09/10/17 10:00 Urine Clarity CLEAR (CLEAR) 09/10/17 10:00 Urine pH 6.0 (4.6 - 8.0) 09/10/17 10:00 Ur Specific [place] 1.010 (1.005-1.030) 09/10/17 10:00 Urine Protein NEGATIVE mg/dL (NEGATIVE) 09/10/17 10:00 Urine Glucose (UA) NEGATIVE mg/dL (NEGATIVE) 09/10/17 10:00 Urine Ketones NEGATIVE mg/dL (NEGATIVE) 09/10/17 10:00 Urine Blood NEGATIVE (NEGATIVE) 09/10/17 10:00 Urine Nitrate NEGATIVE (NEGATIVE) 09/10/17 10:00 Urine Bilirubin NEGATIVE (NEGATIVE) 09/10/17 10:00 Urine Urobilinogen 0.2 E.U./dL (0.2 - 1.0) 09/10/17 10:00 Ur Leukocyte Esterase NEGATIVE (NEGATIVE) 09/10/17 10:00 Influenza A (Rapid) NEG FOR INF A 09/13/17 04:25 Influenza B (Rapid) NEG FOR INF B 09/13/17 04:25 - Physical Exam Vitals and I&O: Vital Signs Temp 97.8 F 09/16/17 12:36 Pulse 82 09/16/17 12:48 Resp 20 09/16/17 12:48 BP 128/72 09/16/17 12:36 Pulse Ox 97 09/16/17 12:48 Intake & Output 09/15/17 09/16/17 09/16/17 18:59 06:59 18:59 Intake Total 100 250 120 Balance 100 250 120 Weight (lbs) 63.503 kg 63.503 kg 63.503 kg Intake: Intake, IV Amount 50 50 Cefepime 1 gm In Dextrose 50 50 5% 50 ml @ 100 mls/hr IV Q12HR [facility] Rx#:[id number] Oral 50 200 120 Other: # Voids 3 1 # Bowel Movements 0 Stool Characteristics Soft Soft Soft Formed Formed Formed Brown Brown Brown Active Medications: Current Medications Acetaminophen (Tylenol) 650 mg PO Q4H PRN PRN Reason: Pain or Fever >101 Stop: 11/08/17 03:14 Last Admin: 09/14/17 22:51 Dose: 650 mg Albuterol/Ipratropium (Duoneb Neb) 3 ml HHN [id number] [facility] Stop: 11/10/17 06:59 Last Admin: 09/16/17 12:46 Dose: 3 ml Artificial Tears (Artificial Tears Ophth Soln) 1 drop LEFT EYE QID [facility] Stop: 11/08/17 16:59 Last Admin: 09/16/17 09:04 Dose: 1 drop Budesonide (Pulmicort) 0.5 mg HHN BIDRT [facility] Stop: 11/10/17 06:59 Last Admin: 09/16/17 07:45 Dose: 0.5 mg Carbidopa/Levodopa (Sinemet 25 Mg-250 Mg) 1 tab PO BID [facility] Stop: 11/10/17 08:59 Last Admin: 09/16/17 09:01 Dose: 1 tab Divalproex Sodium (Depakote Sprinkle) 125 mg PO BID [facility] PRN Reason: Protocol Stop: 11/08/17 16:59 Last Admin: 09/16/17 09:01 Dose: 125 mg Docusate Sodium (Colace) 100 mg PO BID [facility] Stop: 11/08/17 16:59 Last Admin: 09/16/17 09:01 Dose: 100 mg Enalapril Maleate (Vasotec) 2.5 mg PO DAILY [facility] Stop: 11/09/17 08:59 Last Admin: 09/16/17 09:02 Dose: 2.5 mg Ferrous Sulfate (Iron) 325 mg PO DAILY [facility] Stop: 11/09/17 08:59 Last Admin: 09/16/17 09:02 Dose: 325 mg Guaifenesin (Robitussin) 200 mg PO Q4HR PRN PRN Reason: Cough or Congestion Stop: 11/08/17 13:45 Cefepime HCl 1 gm/ Dextrose 50 mls @ 100 mls/hr IV Q12HR [facility] Stop: 11/08/17 08:59 Last Admin: 09/16/17 09:03 Dose: 100 mls/hr Metronidazole (Flagyl) 500 mg in 100 mls @ 100 mls/hr IV Q8HR [facility] Stop: 11/15/17 12:59 Lactobacillus Rhamnosus (Culturelle 15b) 1 each PO DAILY [facility] Stop: 11/09/17 08:59 Last Admin: 09/16/17 09:01 Dose: 1 each Lactulose (Cephulac) 20 gm PO BID [facility] Stop: 11/12/17 16:59 Last Admin: 09/16/17 09:02 Dose: 20 gm Magnesium Hydroxide (Milk Of Magnesia) 30 ml PO DAILY PRN PRN Reason: Constipation Stop: 11/08/17 13:36 Memantine (Namenda) 10 mg PO BID [facility] Stop: 11/08/17 16:59 Last Admin: 09/16/17 09:01 Dose: 10 mg Miscellaneous (Vte Chemical Prophylaxis Screen/ Admission) 1 ea [facility] PRN PRN PRN Reason: PROTOCOL Stop: 11/08/17 12:29 Miscellaneous (Misc Oral Cap) 1 cap PO DAILY [facility] Stop: 11/09/17 08:59 Last Admin: 09/16/17 09:03 Dose: 1 cap Miscellaneous (Probiotic Screen) 1 ea [facility] PRN PRN PRN Reason: PROTOCOL Stop: 11/12/17 10:29 Olanzapine (Zyprexa) 2.5 mg PO HS [facility] PRN Reason: Protocol Stop: 11/08/17 20:59 Last Admin: 09/15/17 21:25 Dose: 2.5 mg Ondansetron HCl (Zofran) 4 mg IV Q4H PRN PRN Reason: Nausea / Vomiting Stop: 11/08/17 02:55 Pantoprazole Sodium (Protonix) 40 mg IVP BID [facility] Stop: 11/11/17 16:59 Last Admin: 09/16/17 09:04 Dose: 40 mg Simvastatin (Zocor) 20 mg PO HS [facility] PRN Reason: Protocol Stop: 11/08/17 20:59 Last Admin: 09/15/17 21:25 Dose: 20 mg Vitamin D (Vitamin D3) 2,000 iu PO DAILY [facility] Stop: 11/09/17 08:59 Last Admin: 09/16/17 09:01 Dose: 2,000 iu Assessment/Plan - Assessment Assessment: 87 YO MALE WITH HEMATEMESIS EGD SHOWED ESOPHAGITIS, HIATAL HERNIA, AND GASTRITIS NO FURTHER BLEEDING 1.CONT PROTONIX 2.FOLLOW H/H 3.CHECK BX
== END 2017-09-16 14:10 | disposition short-term general hospital (02) | DRG 193 ==
LOC: ER 19:51 → TELE 09-09 02:56 → MSI 09-09 20:13
PROVIDERS: ADMIT Internal Medicine; ATTEND Internal Medicine
PROC: 0DB58ZX Excision of Esophagus, Via Natural or Artificial Opening Endoscopic, Diagnostic (ICD-10-PCS; principal; 2017-09-15)
PROC: 0DB68ZX Excision of Stomach, Via Natural or Artificial Opening Endoscopic, Diagnostic (ICD-10-PCS; 2017-09-15)
DX: J18.9 Pneumonia, unspecified organism (principal); K29.71 Gastritis, unspecified, with bleeding; J96.21 Acute and chronic respiratory failure with hypoxia; E87.2 Acidosis; E87.3 Alkalosis; F25.9 Schizoaffective disorder, unspecified; G20 Parkinson's disease; D64.9 Anemia, unspecified; E11.9 Type 2 diabetes mellitus without complications; J44.1 Chronic obstructive pulmonary disease with (acute) exacerbation; J44.0 Chronic obstructive pulmonary disease with (acute) lower respiratory infection; F41.9 Anxiety disorder, unspecified; K21.0 Gastro-esophageal reflux disease with esophagitis; G30.9 Alzheimer's disease, unspecified; F02.80 Dementia in other diseases classified elsewhere, unspecified severity, without behavioral disturbance, psychotic disturbance, mood disturbance, and anxiety; I10 Essential (primary) hypertension; E78.5 Hyperlipidemia, unspecified; Z66 Do not resuscitate; J20.9 Acute bronchitis, unspecified; K44.9 Diaphragmatic hernia without obstruction or gangrene; E78.00 Pure hypercholesterolemia, unspecified; M25.512 Pain in left shoulder
CPT/HCPCS: 36415-UA; 36600-90; 71010-TC; 71020-TC; 71260-TC; 73030-TC-LT; 80048-TC; 80053-TC; 81003-TC; 82140-TC; 82607-90; 82746-90; 82803-TC; 82948-90; 83036-90; 83880-TC; 84443-TC; 84484-TC; 85007-TC; 85025-TC; 85027-TC; 85610-TC; 87070; 87804-TC; 90779; 93005; 94640; 94760; C9113; J0692; J2920; J7030; J7613; Q9967; X3401; Z7610

== ENCOUNTER 2019-06-21 13:03 | Inpatient (IN) | payer MEDICARE ==
[2019-06-21 22:02] VITALS: BP 165/84
[2019-06-22] MEDS: Pantoprazole 40 mg EC Tab PO SCH (06:44)
[2019-06-22] MEDS: Aspirin 81mg Chewable Tab PO SCH (09:59)
--- NOTE | 2019-06-22 12:37 | History & Physical ---
ADMIT DATE: 06/21/2019 REASON FOR CONSULT: Medical management and clearance. HISTORY OF PRESENT ILLNESS: This is an unfortunate 89-year-old male with history of malnutrition, Parkinson, hypertension, COPD, GERD, admitted from nursing facility and cleared medically ____. The patient is not taking medication, agitated, not a good historian. PAST MEDICAL HISTORY: As mentioned in history of present illness. PAST SURGICAL HISTORY: No surgeries in the past, admitted from previous admission here in 2017. ALLERGIES: No known drug allergies. MEDICATIONS: Tylenol, aspirin, sertraline, Colace, famotidine, and pantoprazole. FAMILY HISTORY: Noncontributory. SOCIAL HISTORY: The patient is a senior care patient requiring 24-hour total care. REVIEW OF SYSTEMS: This is limited secondary to the patient's current mental state. We will try to obtain more detailed review of system at a later date by talking to family members. There is a daughter, Carian Sow, #[phone]. We will also try to get more information from nursing staff at [facility] at [phone]. PHYSICAL EXAMINATION: VITAL SIGNS: Blood pressure 152/87, respirations 19, pulse 89, temperature 98.1. GENERAL: Early male, appears chronically ill, disheveled, thin. NECK: Supple, without temporal wasting. LUNGS: Equal breath sounds, few rhonchi. HEART: Regular rate and rhythm with systolic ejection murmur. ABDOMEN: Soft, globular. EXTREMITIES: Positive atrophy and excoriations. NEUROLOGIC: Limited, moving 4 extremities. LABORATORY DATA: Pending. ASSESSMENT AND PLAN: Malnutrition, Parkinson, hypertension, chronic obstructive pulmonary disease, gastroesophageal reflux disease, allergic rhinitis, history of hyperglycemia. We will continue to check hemoglobin A1c. We will liberalize the patient's diet. Continue on Sinemet. We will continue proton pump inhibitor. We will provide the patient ____ treatment. We will add Megace. We will follow the patient closely with you, Dr Feliz. JOB# [id number]
--- NOTE | 2019-06-23 02:44 | Psychiatric Evaluation ---
DATE OF SERVICE: 06/22/2019 PSYCHIATRIC EVALUATION AND MENTAL STATUS EXAMINATION REASON FOR ADMISSION: The patient was admitted for increased episodes of refusing care and treatment and being agitated and increased confusion. HISTORY OF PRESENT ILLNESS: The patient is an 89-year-old male who is a resident of [facility]. The patient has been followed by this service writer advisor at the facility. On the day of admission, the staff called to request hospitalization for the patient because the patient has been refusing to take his medications. The patient has increased confusion and also a scar on the right lower side of the abdomen. Upon interview, the patient appeared to be a poor historian. The patient was able to give his name, but not his age. The patient was able to give his birthday. The patient was not able to say where he has been living prior to coming here. The patient was not able to say why he is here. The patient admitted that he has not been eating well, but not able to say why he is having problem eating. The patient has his lunch in front of him and yet the patient declined to eat it. The patient admitted that sometimes he has problem sleeping as well. The patient admitted to feeling depressed, but not able to rate his mood on a 0-10 scale, 0 being normal, happy and 10 being very depressed and suicidal. The patient complained of pain in his abdomen, close to midline, but more on the left side. The patient was not able to say how it started. The patient stated that it had been there for about a week, it gradually got worse. When asked to rate his pain on a 0-10 scale, the patient stated it is more than 10. When asked if he has any episodes where he hears voices, see things, or feeling that people are watching him, talking about him, out to get him, the patient stated yes. When asked what he has been hearing, the patient stated that they can be a man, woman, or even children. The patient stated that he does not know what they say, but he knows the meaning. When asked what he meant by that, what is meaning of what those people were saying, the patient was not able to give any detail. The patient admitted seeing soldiers or navy. The patient also admitted feeling that people are watching him, talking about him, out to get him. 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 The patient has been diagnosed with psychotic disorder and mood disorder, depressed due to medical condition, impulse control disorder, not otherwise specified, and personality change due to medical condition. MEDICAL HISTORY: The patient has Parkinson's disease, chronic obstructive pulmonary disease, psoriasis, diabetes, and hyperlipidemia. ALLERGIES: No known allergies. SURGICAL HISTORY: The patient reported that he cannot remember what surgery he had. MEDICATIONS: Currently, the patient is on Tylenol, aspirin, Sinemet, docusate sodium, Pepcid, Claritin, Ativan 0.5 mg q. 4 hours p.r.n., Megace 400 mg b.i.d., Protonix 40 mg daily before meal and Ambien 5 mg at bedtime p.r.n. PERSONAL HISTORY: The patient reported that he was a few times. The patient could not give exactly how many children he has. The patient was able to name 5 children from his last marriage. 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 EDUCATION: The patient reported that he went to University in [place] and he has a degree as well as bachelor degree. SUBSTANCE ABUSE HISTORY: The patient admitted to drinking and smoking in the past. The patient also admitted that he had tried illicit drugs when he was younger. MENTAL STATUS EXAMINATION: Orientation: The patient was disoriented to time, place, and person. The patient was able to give logical interpretation to 1 proverbs and not able to give interpretation to another one and said that he had not heard of the third 1. Concentration: The patient was unable to perform any of the serial 3 subtraction. Memory appeared to be impaired for immediate, short-term, and long-term memory. Insight poor, judgment impaired. DIAGNOSTIC IMPRESSION: AXIS I: 1. Alzheimer dementia with psychosis and depression. 2. Psychotic disorder and mood disorder, depressed due to medical condition. 3. Impulse control disorder, not otherwise specified. 4. 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 AXIS II: Deferred. AXIS III: The patient has Parkinson's disease, chronic obstructive pulmonary disease, psoriasis, diabetes, and hyperlipidemia. AXIS IV: Medical and mental illnesses. AXIS V: Current 15, past year unknown. PLAN: We will start the patient on Abilify 2 mg p.o. q.a.m. since Nuplazid is not available here. We will switch the patient to Nuplazid once the patient is discharged back to [facility]. We will start the patient on Remeron 30 mg p.o. at bedtime for poor appetite. We will consider adding Provigil as a stimulant if indicated. DISCHARGE CRITERIA: Include improvement of his condition with increased appetite and decrease in depression with increased motivation and ability to get up and be out of the bed and to participate in activities. ESTIMATED LENGTH OF STAY: 7-10 days. PSYCHIATRIC# [id number]
[2019-06-23] MEDS: Pantoprazole 40 mg EC Tab PO SCH (06:58)
[2019-06-23] MEDS: Aspirin 81mg Chewable Tab PO SCH (09:54)
--- NOTE | 2019-06-23 12:17 | Internal Medicine Prog Note ---
Internal Medicine Subjective - Subjective Patient seen and examined:: with staff, chart reviewed Patient is:: awake, verbal, interactive, in bed, confused, other (very thin) Patient Complaints of:: congestion Per staff patient has:: no adverse event, no episodes of fall, poor appetite Internal Medicine Objective - Physical Exam Vitals and I&O: Vital Signs Temp 97.4 F 06/23/19 06:36 Pulse 84 06/23/19 06:36 Resp 18 06/23/19 08:00 BP 149/86 06/23/19 06:36 Pulse Ox 97 06/23/19 06:36 Intake & Output 06/22/19 06/23/19 06/23/19 18:59 06:59 18:59 Intake Total 820 Balance 820 Intake: Oral 820 Other: # Voids 3 # Bowel Movements 1 Active Medications: Current Medications Acetaminophen (Tylenol) 650 mg PO Q4H PRN PRN Reason: Pain or Fever >101 Stop: 08/20/19 22:59 Aripiprazole (Abilify) 2 mg PO DAILY [facility]; Protocol Stop: 08/22/19 08:59 Last Admin: 06/23/19 09:54 Dose: 2 mg Aspirin (Aspirin Chewable) 81 mg PO DAILY [facility] Stop: 08/21/19 08:59 Last Admin: 06/23/19 09:54 Dose: 81 mg Carbidopa/Levodopa (Sinemet 25 Mg-250 Mg) 1 tab PO BID [facility] Stop: 08/21/19 08:59 Last Admin: 06/23/19 09:54 Dose: 1 tab Docusate Sodium (Colace) 100 mg PO BID [facility] Stop: 08/21/19 08:59 Last Admin: 06/23/19 09:54 Dose: 100 mg Loratadine (Claritin) 10 mg PO QPM [facility] Stop: 08/21/19 16:59 Last Admin: 06/22/19 17:50 Dose: Not Given Lorazepam (Ativan) 0.5 mg PO Q4HR PRN; Protocol PRN Reason: Anxiety Stop: 07/21/19 20:41 Megestrol Acetate (Megace) 400 mg PO BID [facility]; Protocol Stop: 08/21/19 16:59 Last Admin: 06/23/19 09:54 Dose: 400 mg Mirtazapine (Remeron) 30 mg PO HS [facility]; Protocol Stop: 08/22/19 20:59 Pantoprazole Sodium (Protonix) 40 mg PO QDAC [facility] Stop: 08/21/19 07:29 Last Admin: 06/23/19 06:58 Dose: 40 mg Zolpidem Tartrate (Ambien) 5 mg PO HS PRN PRN Reason: Insomnia Stop: 08/20/19 20:41 General: congested, demented, disheveled, thin, appears older HEENT: NC/AT, PERRLA Neck: Supple, No JVD Lungs: rales Cardiovascular: RRR, Normal S1, Normal S2, with murmur Abdomen: soft, thin, non-distended, positive bowel sound Extremities: excoriation, contracture Neurological: no change - Procedures Procedures: Procedures Procedure Code Date EXCISION OF ESOPHAGUS, ENDO, DIAGN [id number] 09/09/17 EXCISION OF STOMACH, ENDO, DIAGN [id number] 09/09/17 Internal Medicine Assmt/Plan - Assessment Assessment: ASSESSMENT AND PLAN: Malnutrition, Parkinson, hypertension, chronic obstructive pulmonary disease, gastroesophageal reflux disease, allergic rhinitis, history of hyperglycemia. - Plan Plan: PLAN: We will continue to check hemoglobin A1c. We will liberalize the patient's diet. Continue on Sinemet. We will continue proton pump inhibitor. We will provide the patient __nsaids__ treatment. We will add Megace. We will follow the patient closely with you, Dr Feliz.
--- NOTE | 2019-06-24 00:23 | Progress Notes ---
DATE: 06/23/2019 SUBJECTIVE: The patient was resting in bed with breakfast tray in front of him; however, the patient did not touch his breakfast at this time. The patient reported that he does not feel like eating. The patient stated that this display card writer had given him burrito earlier and he ate all of it. The patient reported that he slept okay. The patient stated that he is not happy because all his children have left him. When I asked where did they go, the patient was not able to say where. The patient stated that they told him to listen to the people here when we tell them what to do. When asked if he had been up since he has been here, the patient stated that he went to the bathroom. When asked if the staff assisted him to the bathroom, the patient pointed to his roommate. OBJECTIVE: The patient appeared to be delusional. The patient continued to have poor appetite. The staff reported that the patient was able to take some of his medications this morning. The staff reported that the patient slept okay, but continued to have poor appetite. The staff reported that the patient appeared suspicious, paranoid and delusional. The staff reported that the patient has episodes of resisting care. 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 2. Psychotic disorder and mood disorder, depressed due to medical condition. 3. Impulse control disorder, not otherwise specified. 4. 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 PLAN: We will start the patient on Abilify 2 mg p.o. q.a.m. and Remeron 30 mg p.o. at bedtime and monitor the patient's response to the medications. JOB# [id number] TROY
[2019-06-24] MEDS: Pantoprazole 40 mg EC Tab PO SCH (06:46)
[2019-06-24] MEDS: Aspirin 81mg Chewable Tab PO SCH ×2 (08:55→09:11)
--- NOTE | 2019-06-24 14:46 | Internal Medicine Prog Note ---
Internal Medicine Subjective - Subjective Patient seen and examined:: with staff, chart reviewed Patient is:: awake, verbal, interactive, in bed, confused, other (very thin) Patient Complaints of:: congestion Per staff patient has:: no adverse event, no episodes of fall, poor appetite Internal Medicine Objective - Physical Exam Vitals and I&O: Vital Signs Temp 97.8 F 06/24/19 14:17 Pulse 89 06/24/19 14:17 Resp 18 06/24/19 14:17 BP 171/97 06/24/19 14:17 Pulse Ox 96 06/24/19 14:17 Intake & Output 06/23/19 06/24/19 06/24/19 18:59 06:59 18:59 Intake Total 120 Balance 120 Intake: Oral 120 Other: # Voids 3 Active Medications: Current Medications Acetaminophen (Tylenol) 650 mg PO Q4H PRN PRN Reason: Pain or Fever >101 Stop: 08/20/19 22:59 Aripiprazole (Abilify) 5 mg PO DAILY [facility]; Protocol Stop: 08/24/19 08:59 Aspirin (Aspirin Chewable) 81 mg PO DAILY [facility] Stop: 08/21/19 08:59 Last Admin: 06/24/19 09:11 Dose: Not Given Carbidopa/Levodopa (Sinemet 25 Mg-250 Mg) 1 tab PO BID [facility] Stop: 08/21/19 08:59 Last Admin: 06/24/19 09:12 Dose: Not Given Docusate Sodium (Colace) 100 mg PO BID [facility] Stop: 08/21/19 08:59 Last Admin: 06/24/19 09:12 Dose: Not Given Loratadine (Claritin) 10 mg PO QPM [facility] Stop: 08/21/19 16:59 Last Admin: 06/23/19 17:58 Dose: 10 mg Lorazepam (Ativan) 0.5 mg PO Q4HR PRN; Protocol PRN Reason: Anxiety Stop: 07/21/19 20:41 Megestrol Acetate (Megace) 400 mg PO BID [facility]; Protocol Stop: 08/21/19 16:59 Last Admin: 06/24/19 09:12 Dose: Not Given Mirtazapine (Remeron) 30 mg PO HS [facility]; Protocol Stop: 08/22/19 20:59 Last Admin: 06/23/19 20:41 Dose: 30 mg Pantoprazole Sodium (Protonix) 40 mg PO QDAC [facility] Stop: 08/21/19 07:29 Last Admin: 06/24/19 06:46 Dose: 40 mg Zolpidem Tartrate (Ambien) 5 mg PO HS PRN PRN Reason: Insomnia Stop: 08/20/19 20:41 General: congested, demented, disheveled, thin, appears older HEENT: NC/AT, PERRLA Neck: Supple, No JVD Lungs: rales Cardiovascular: RRR, Normal S1, Normal S2, with murmur Abdomen: soft, thin, non-distended, positive bowel sound Extremities: excoriation, contracture Neurological: no change - Procedures Procedures: Procedures Procedure Code Date EXCISION OF ESOPHAGUS, ENDO, DIAGN [id number] 09/09/17 EXCISION OF STOMACH, ENDO, DIAGN [id number] 09/09/17 Internal Medicine Assmt/Plan - Assessment Assessment: ASSESSMENT AND PLAN: Malnutrition, Parkinson, hypertension, chronic obstructive pulmonary disease, gastroesophageal reflux disease, allergic rhinitis, history of hyperglycemia. - Plan Plan: PLAN: We will continue to check hemoglobin A1c. We will liberalize the patient's diet. Continue on Sinemet. We will continue proton pump inhibitor. We will provide the patient __nsaids__ treatment. We will add Megace. We will follow the patient closely with you, Dr Feliz.
--- NOTE | 2019-06-25 03:12 | Progress Notes ---
DATE: 06/24/2019 SUBJECTIVE: The patient was resting in bed with a lunch tray in front of him; however, the patient had not touched his lunch. The patient reported that he does not feel like eating. The patient stated that he did not sleep well. When asked what was he doing when he could not sleep? The patient stated that he tried to get out of bed. When asked why, the patient stated that someone who looked like this singer songwriter told him to try to get up and walk. When asked when was the last time that the man told him to do that, the patient stated long time ago. The patient continued to say that he cannot eat and not able to explain why he is having problem eating. OBJECTIVE: The patient continued to have poor appetite. The patient continued to be uncooperative when talked to. The patient continued to have psychotic symptoms with delusions and possibly visual hallucination. Staff reported that the patient ate about 65% of his breakfast. Staff reported that the patient had requested for some Coca-Cola and was given and the patient ate after given some Coca-Cola. However, at lunch, the patient refused to eat and did not want to have Coca-Cola either. The staff reported that the patient had been refusing his medications. The patient also refused to engage with activity personnel. 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 2. Psychotic disorder and mood disorder, depressed due to medical condition. 3. Impulse control disorder, not otherwise specified. 4. 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 PLAN: We will increase Abilify to 5 mg p.o. q.a.m. for his psychosis. We will continue Remeron and monitor the patient's response to the medication. We will monitor the patient's appetite. JOB# [id number] TROY
[2019-06-25] MEDS: Pantoprazole 40 mg EC Tab PO SCH (07:05)
[2019-06-25] MEDS: Aspirin 81mg Chewable Tab PO SCH (09:56)
--- NOTE | 2019-06-25 13:59 | Internal Medicine Prog Note ---
Internal Medicine Subjective - Subjective Patient seen and examined:: with staff, chart reviewed Patient is:: awake, verbal, interactive, in bed, confused, other (very thin) Patient Complaints of:: congestion Per staff patient has:: no adverse event, no episodes of fall, poor appetite Internal Medicine Objective - Physical Exam Vitals and I&O: Vital Signs Temp 97.2 F 06/25/19 05:43 Pulse 72 06/25/19 05:43 Resp 18 06/25/19 08:00 BP 122/64 06/25/19 05:43 Pulse Ox 98 06/25/19 05:43 Intake & Output 06/24/19 06/25/19 06/25/19 18:59 06:59 18:59 Intake Total 900 240 Balance 900 240 Intake: Oral 900 240 Other: # Voids 3 2 # Bowel Movements 1 1 Active Medications: Current Medications Acetaminophen (Tylenol) 650 mg PO Q4H PRN PRN Reason: Pain or Fever >101 Stop: 08/20/19 22:59 Aripiprazole (Abilify) 5 mg PO DAILY [facility]; Protocol Stop: 08/24/19 08:59 Aspirin (Aspirin Chewable) 81 mg PO DAILY [facility] Stop: 08/21/19 08:59 Last Admin: 06/25/19 09:56 Dose: 81 mg Carbidopa/Levodopa (Sinemet 25 Mg-250 Mg) 1 tab PO BID [facility] Stop: 08/21/19 08:59 Last Admin: 06/25/19 09:57 Dose: 1 tab Docusate Sodium (Colace) 100 mg PO BID [facility] Stop: 08/21/19 08:59 Last Admin: 06/25/19 09:56 Dose: 100 mg Loratadine (Claritin) 10 mg PO QPM [facility] Stop: 08/21/19 16:59 Last Admin: 06/24/19 17:29 Dose: 10 mg Lorazepam (Ativan) 0.5 mg PO Q4HR PRN; Protocol PRN Reason: Anxiety Stop: 07/21/19 20:41 Megestrol Acetate (Megace) 400 mg PO BID [facility]; Protocol Stop: 08/21/19 16:59 Last Admin: 06/25/19 09:56 Dose: 400 mg Mirtazapine (Remeron) 30 mg PO HS [facility]; Protocol Stop: 08/22/19 20:59 Last Admin: 06/24/19 21:25 Dose: 30 mg Modafinil (Provigil) 100 mg PO DAILY [facility]; Protocol Stop: 08/24/19 08:59 Pantoprazole Sodium (Protonix) 40 mg PO QDAC [facility] Stop: 08/21/19 07:29 Last Admin: 06/25/19 07:05 Dose: 40 mg Zolpidem Tartrate (Ambien) 5 mg PO HS PRN PRN Reason: Insomnia Stop: 08/20/19 20:41 General: congested, demented, disheveled, thin, appears older HEENT: NC/AT, PERRLA Neck: Supple, No JVD Lungs: rales Cardiovascular: RRR, Normal S1, Normal S2, with murmur Abdomen: soft, thin, non-distended, positive bowel sound Extremities: excoriation, contracture Neurological: no change - Procedures Procedures: Procedures Procedure Code Date EXCISION OF ESOPHAGUS, ENDO, DIAGN [id number] 09/09/17 EXCISION OF STOMACH, ENDO, DIAGN [id number] 09/09/17 Internal Medicine Assmt/Plan - Assessment Assessment: ASSESSMENT AND PLAN: Malnutrition, Parkinson, hypertension, chronic obstructive pulmonary disease, gastroesophageal reflux disease, allergic rhinitis, history of hyperglycemia. - Plan Plan: PLAN: We will continue to check hemoglobin A1c. We will liberalize the patient's diet. Continue on Sinemet. We will continue proton pump inhibitor. We will provide the patient __nsaids__ treatment. We will add Megace. We will follow the patient closely with you, Dr Feliz. Nutritional Asmnt/Malnutr-PDOC - Dietary Evaluation Malnutrition Findings (Please click <Entered> for more info): Nutritional Asmnt/Malnutrition Start: 06/25/19 11: 42 Text: Status: Complete Freq: Protocol: Document 06/25/19 11:42 PAVEL (Rec: 06/25/19 12:15 PAVEL ALFONSO- [email or web address]) Nutritional Asmnt/Malnutrition Patient General Information Nutritional Screening Moderate Risk Diagnosis Psychosis Pertinent Medical Hx/Surgical Hx malnutrition, Parkinsons, Hypertension, COPD, GERD Subjective Information [facility]. Patient asleep at time of visit Current Diet Order/ Nutrition Support Mechanical soft, JOSE ROBERTO, 60 gm CCHO, Ensure Enlive TID Patient / S.O Not Indicated Pertinent Medications Colace, Megace, protonix Pertinent Labs Lipid panel WNL Nutritional Hx/Data Height 1.73 m Height (Calculated Centimeters) 172.7 Current Weight (lbs) 63.503 kg Weight (Calculated Kilograms) 63.5 Weight (Calculated Grams) 08459.9 [place] Body Weight 154 % [place] Body Weight 90 Body Mass Index (BMI) 21.2 Recent Weight Change No Weight Status Approriate GI Symptoms GI Symptoms None Last BM 06/25 x 1 Difficult in: None Food Allergies No Cultural/Ethnic/Mandaen Belief none indicated Usual diet at home unknown Skin Integrity/Comment: Vinayak 17, Bruises Current %PO Poor (25-49%) Estimated Nutritional Goals BEE in Kcals: Using Current wt Calories/Kcals/Kg 70kg [place] BW Kcals Calculated ~9667-3999 kcal/day Protein: Using Current wt Protein g/kg: (1 gm/kg) Protein Calculated ~70gm/day Fluid: ml ~7797-0288 ml/day (1 ml/kcal) Nutritional Problem 1. Problem Problem inadequate oral intake related to Etiology possible poor appetite/ confusion aeb Signs/Symptoms: PO intake <50% of meals on average. Intervention/Recommendation Comments 1. Continue mechanical soft, 60gm CCHO, JOSE ROBERTO diet with Ensure Enlive TID. 2. Encourage oral intake of meals and supplements and assist with meals as needed. Expected Outcomes/Goals Expected Outcomes/Goals Oral intake >75% Of meals, weight stable, nutrition related labs WNL F/U MR 06/28-
--- NOTE | 2019-06-25 22:17 | Progress Notes ---
DATE: 06/25/2019 SUBJECTIVE: The patient was resting in bed, alert, and quiet. The patient was cooperative and pleasant during interview. The patient indicated that he slept okay. The patient continued to report that he does not feel like eating and not able to say why. The patient reported that he took his medications. The patient continued to report having auditory, visual hallucination, and delusions. The patient reported that nobody has visited him since he has been here. The patient is confused and not able to say where he is. OBJECTIVE: The patient continued to be pleasant when talked to. The patient continued to have poor appetite, but not able to say why. The staff reported that the patient at times would eat reasonably well when fed. The staff reported that last evening during feeding the patient would eat a few bites and then stop and when the staff continued to try to feed the patient, the patient became agitated and tried to kick the staff. The staff reported that the patient mentioned that he ate more when his daughter fed him. So, the staff tried to encourage the patient to eat more. The staff reported that patient took medication with his meal. The staff reported that the patient continues to sleep okay. 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 2. Psychotic disorder and mood disorder, depressed due to medical condition. 3. Impulse control disorder, not otherwise specified. 4. 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 PLAN: We will start the patient on Provigil 100 mg p.o. q.a.m. to see if the patient would be little bit more energized with this medication and hopefully that will help increase the patient's appetite. JOB# [id number] TROY
[2019-06-26] MEDS: Pantoprazole 40 mg EC Tab PO SCH (06:30)
[2019-06-26] MEDS: Aspirin 81mg Chewable Tab PO SCH (09:26)
--- NOTE | 2019-06-26 12:37 | Internal Medicine Prog Note ---
Internal Medicine Subjective - Subjective Service Date: 06/26/19 Patient is:: awake, verbal, interactive, in bed, confused, other (very thin) Patient Complaints of:: congestion Per staff patient has:: no adverse event, no episodes of fall, poor appetite Internal Medicine Objective - Physical Exam Vitals and I&O: Vital Signs Temp 97.3 F 06/26/19 06:50 Pulse 87 06/26/19 06:50 Resp 18 06/26/19 08:00 BP 151/88 06/26/19 06:50 Pulse Ox 93 06/26/19 06:50 Intake & Output 06/25/19 06/26/19 06/26/19 18:59 06:59 18:59 Intake Total 800 240 Output Total 1 Balance 800 239 Intake: Oral 800 240 Output: Urine/Stool Mix 1 Other: # Voids 4 1 # Bowel Movements 1 1 Active Medications: Current Medications Acetaminophen (Tylenol) 650 mg PO Q4H PRN PRN Reason: Pain or Fever >101 Stop: 08/20/19 22:59 Aripiprazole (Abilify) 5 mg PO DAILY [facility]; Protocol Stop: 08/24/19 08:59 Last Admin: 06/26/19 09:26 Dose: 5 mg Aspirin (Aspirin Chewable) 81 mg PO DAILY [facility] Stop: 08/21/19 08:59 Last Admin: 06/26/19 09:26 Dose: 81 mg Carbidopa/Levodopa (Sinemet 25 Mg-250 Mg) 1 tab PO BID [facility] Stop: 08/21/19 08:59 Last Admin: 06/26/19 09:26 Dose: 1 tab Docusate Sodium (Colace) 100 mg PO BID [facility] Stop: 08/21/19 08:59 Last Admin: 06/26/19 09:26 Dose: 100 mg Loratadine (Claritin) 10 mg PO QPM [facility] Stop: 08/21/19 16:59 Last Admin: 06/25/19 18:00 Dose: 10 mg Lorazepam (Ativan) 0.5 mg PO Q4HR PRN; Protocol PRN Reason: Anxiety Stop: 07/21/19 20:41 Megestrol Acetate (Megace) 400 mg PO BID [facility]; Protocol Stop: 08/21/19 16:59 Last Admin: 06/26/19 09:27 Dose: 400 mg Mirtazapine (Remeron) 30 mg PO HS [facility]; Protocol Stop: 08/22/19 20:59 Last Admin: 06/25/19 21:09 Dose: 30 mg Modafinil (Provigil) 100 mg PO DAILY [facility]; Protocol Stop: 08/24/19 08:59 Last Admin: 06/26/19 09:26 Dose: 100 mg Pantoprazole Sodium (Protonix) 40 mg PO QDAC [facility] Stop: 08/21/19 07:29 Last Admin: 06/26/19 06:30 Dose: 40 mg Zolpidem Tartrate (Ambien) 5 mg PO HS PRN PRN Reason: Insomnia Stop: 08/20/19 20:41 General: congested, demented, disheveled, thin, appears older HEENT: NC/AT, PERRLA Neck: Supple, No JVD Lungs: rales Cardiovascular: RRR, Normal S1, Normal S2, with murmur Abdomen: soft, thin, non-distended, positive bowel sound Extremities: excoriation, contracture Neurological: no change - Procedures Procedures: Procedures Procedure Code Date EXCISION OF ESOPHAGUS, ENDO, DIAGN [id number] 09/09/17 EXCISION OF STOMACH, ENDO, DIAGN [id number] 09/09/17 Internal Medicine Assmt/Plan - Assessment Assessment: ASSESSMENT AND PLAN: Malnutrition, Parkinson, hypertension, chronic obstructive pulmonary disease, gastroesophageal reflux disease, allergic rhinitis, history of hyperglycemia. - Plan Plan: - Plan Plan: PLAN: We will continue to check hemoglobin A1c. We will liberalize the patient's diet. Continue on Sinemet. We will continue proton pump inhibitor. We We will follow the patient closely with you, Dr Feliz. Nutritional Asmnt/Malnutr-PDOC - Dietary Evaluation Malnutrition Findings (Please click <Entered> for more info): Nutritional Asmnt/Malnutrition Start: 06/25/19 11: 42 Text: Status: Complete Freq: Protocol: Document 06/25/19 11:42 PAVEL (Rec: 06/25/19 12:15 PAVEL ALFONSO- FNS1) Nutritional Asmnt/Malnutrition Patient General Information Nutritional Screening Moderate Risk Diagnosis Psychosis Pertinent Medical Hx/Surgical Hx malnutrition, Parkinsons, Hypertension, COPD, GERD Subjective Information [facility] was [facility]. Patient asleep at time of visit Current Diet Order/ Nutrition Support Mechanical soft, JOSE ROBERTO, 60 gm CCHO, Ensure Enlive TID Patient / S.O Not Indicated Pertinent Medications Colace, Megace, protonix Pertinent Labs Lipid panel WNL Nutritional Hx/Data Height 5 ft 8 in Height (Calculated Centimeters) 172.7 Current Weight (lbs) 140 lb Weight (Calculated Kilograms) 63.5 Weight (Calculated Grams) 02404.9 [place] Body Weight 154 % [place] Body Weight 90 Body Mass Index (BMI) 21.2 Recent Weight Change No Weight Status Approriate GI Symptoms GI Symptoms None Last BM 06/25 x 1 Difficult in: None Food Allergies No Cultural/Ethnic/Jain Belief none indicated Usual diet at home unknown Skin Integrity/Comment: Vinayak 17, Bruises Current %PO Poor (25-49%) Estimated Nutritional Goals BEE in Kcals: Using Current wt Calories/Kcals/Kg 70kg [place] BW Kcals Calculated ~1864-9554 kcal/day Protein: Using Current wt Protein g/kg: (1 gm/kg) Protein Calculated ~70gm/day Fluid: ml ~5114-1535 ml/day (1 ml/kcal) Nutritional Problem 1. Problem Problem inadequate oral intake related to Etiology possible poor appetite/ confusion aeb Signs/Symptoms: PO intake <50% of meals on average. Intervention/Recommendation Comments 1. Continue mechanical soft, 60gm CCHO, JOSE ROBERTO diet with Ensure Enlive TID. 2. Encourage oral intake of meals and supplements and assist with meals as needed. Expected Outcomes/Goals Expected Outcomes/Goals Oral intake >75% Of meals, weight stable, nutrition related labs WNL F/U MR 06/28-
--- NOTE | 2019-06-26 21:41 | Progress Notes ---
DATE: 06/26/2019 SUBJECTIVE: The patient was sitting in bed with the head of the bed up. The patient has breakfast tray in front of him, and the patient was holding a fork. The patient was smiling when talked to. The patient reported that he is feeling okay. When asked what happened, why he is feeling better today, more cheerful, the patient stated "because of you." When asked what happened that had made him feeling better, the patient was not able to give any detail. The patient reported that he is eating more and sleeping well. The patient indicated that he has been taking his medications. The patient did not exhibit any delusion this morning. OBJECTIVE: The patient is more cheerful this morning, smiling more easily as compared to yesterday. The patient seems to be attempting to eat more this morning. The staff reported that the patient still had poor appetite yesterday. When given bedtime snack, the patient will take a bite and that was it. The patient took his medication with a lot of prompting. The patient has been cooperative with care. Staff reported that the patient did sleep well. The staff reported that the patient did not get his Provigil yesterday. 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 2. Psychotic disorder and mood disorder, depressed due to medical condition. 3. Impulse control disorder, not otherwise specified. 4. 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 PLAN: We will continue the patient on current psychotropic medications, and we will see how the patient does with the Provigil being given this morning. [facility]# [id number] TROY
[2019-06-27] MEDS: Pantoprazole 40 mg EC Tab PO SCH (06:37)
[2019-06-27] MEDS: Aspirin 81mg Chewable Tab PO SCH (08:44)
--- NOTE | 2019-06-27 11:42 | Internal Medicine Prog Note ---
Internal Medicine Subjective - Subjective Patient seen and examined:: with staff, chart reviewed Patient is:: awake, verbal, interactive, in bed, confused, other (very thin) Patient Complaints of:: congestion Per staff patient has:: no adverse event, no episodes of fall, poor appetite Internal Medicine Objective - Physical Exam Vitals and I&O: Vital Signs Temp 98.2 F 06/27/19 06:43 Pulse 74 06/27/19 08:41 Resp 18 06/27/19 08:00 BP 149/86 06/27/19 08:41 Pulse Ox 97 06/27/19 06:43 Intake & Output 06/26/19 06/27/19 06/27/19 18:59 06:59 18:59 Intake Total 720 120 Balance 720 120 Intake: Oral 720 120 Other: # Voids 3 3 # Bowel Movements 1 1 Active Medications: Current Medications Acetaminophen (Tylenol) 650 mg PO Q4H PRN PRN Reason: Pain or Fever >101 Stop: 08/20/19 22:59 Amlodipine Besylate (Norvasc) 10 mg PO DAILY [facility] Stop: 08/26/19 08:59 Last Admin: 06/27/19 08:37 Dose: 10 mg Aripiprazole (Abilify) 5 mg PO DAILY [facility]; Protocol Stop: 08/24/19 08:59 Last Admin: 06/27/19 08:36 Dose: 5 mg Aspirin (Aspirin Chewable) 81 mg PO DAILY [facility] Stop: 08/21/19 08:59 Last Admin: 06/27/19 08:44 Dose: 81 mg Carbidopa/Levodopa (Sinemet 25 Mg-250 Mg) 1 tab PO BID [facility] Stop: 08/21/19 08:59 Last Admin: 06/27/19 08:37 Dose: 1 tab Docusate Sodium (Colace) 100 mg PO BID [facility] Stop: 08/21/19 08:59 Last Admin: 06/27/19 08:36 Dose: 100 mg Lisinopril (Zestril) 20 mg PO DAILY [facility] Stop: 08/26/19 08:59 Last Admin: 06/27/19 08:41 Dose: 20 mg Loratadine (Claritin) 10 mg PO QPM [facility] Stop: 08/21/19 16:59 Last Admin: 06/26/19 17:44 Dose: 10 mg Lorazepam (Ativan) 0.5 mg PO Q4HR PRN; Protocol PRN Reason: Anxiety Stop: 07/21/19 20:41 Megestrol Acetate (Megace) 400 mg PO BIDBRS [facility]; Protocol Stop: 08/26/19 09:18 Mirtazapine (Remeron) 30 mg PO HS [facility]; Protocol Stop: 08/22/19 20:59 Last Admin: 06/26/19 20:55 Dose: Not Given Modafinil (Provigil) 100 mg PO DAILY [facility]; Protocol Stop: 08/24/19 08:59 Last Admin: 06/27/19 08:36 Dose: 100 mg Pantoprazole Sodium (Protonix) 40 mg PO QDAC [facility] Stop: 08/21/19 07:29 Last Admin: 06/27/19 06:37 Dose: 40 mg Zolpidem Tartrate (Ambien) 5 mg PO HS PRN PRN Reason: Insomnia Stop: 08/20/19 20:41 General: congested, demented, disheveled, thin, appears older HEENT: NC/AT, PERRLA Neck: Supple, No JVD Lungs: rales Cardiovascular: RRR, Normal S1, Normal S2, with murmur Abdomen: soft, thin, non-distended, positive bowel sound Extremities: excoriation, contracture Neurological: no change - Procedures Procedures: Procedures Procedure Code Date EXCISION OF ESOPHAGUS, ENDO, DIAGN [id number] 09/09/17 EXCISION OF STOMACH, ENDO, DIAGN [id number] 09/09/17 Internal Medicine Assmt/Plan - Assessment Assessment: ASSESSMENT AND PLAN: Malnutrition, Parkinson, hypertension, chronic obstructive pulmonary disease, gastroesophageal reflux disease, allergic rhinitis, history of hyperglycemia. - Plan Plan: PLAN: We will continue to check hemoglobin A1c. We will liberalize the patient's diet. Continue on Sinemet. We will continue proton pump inhibitor. We will provide the patient __nsaids__ treatment. We will add Megace. We will follow the patient closely with you, Dr Feliz. Nutritional Asmnt/Malnutr-PDOC - Dietary Evaluation Malnutrition Findings (Please click <Entered> for more info): Nutritional Asmnt/Malnutrition Start: 06/25/19 11: 42 Text: Status: Complete Freq: Protocol: Document 06/25/19 11:42 [email or web address] (Rec: 06/25/19 12:15 PAVEL ALFONSO- FNS1) Nutritional Asmnt/Malnutrition Patient General Information Nutritional Screening Moderate Risk Diagnosis Psychosis Pertinent Medical Hx/Surgical Hx malnutrition, Parkinsons, Hypertension, COPD, GERD Subjective Information [facility]. Patient asleep at time of visit Current Diet Order/ Nutrition Support Mechanical soft, JOSE ROBERTO, 60 gm CCHO, Ensure Enlive TID Patient / S.O Not Indicated Pertinent Medications Colace, Megace, protonix Pertinent Labs Lipid panel WNL Nutritional Hx/Data Height 1.73 m Height (Calculated Centimeters) 172.7 Current Weight (lbs) 63.503 kg Weight (Calculated Kilograms) 63.5 Weight (Calculated Grams) 42586.9 [place] Body Weight 154 % [place] Body Weight 90 Body Mass Index (BMI) 21.2 Recent Weight Change No Weight Status Approriate GI Symptoms GI Symptoms None Last BM 06/25 x 1 Difficult in: None Food Allergies No Cultural/Ethnic/Tenriism Belief none indicated Usual diet at home unknown Skin Integrity/Comment: Vinayak 17, Bruises Current %PO Poor (25-49%) Estimated Nutritional Goals BEE in Kcals: Using Current wt Calories/Kcals/Kg 70kg [place] BW Kcals Calculated ~0418-1324 kcal/day Protein: Using Current wt Protein g/kg: (1 gm/kg) Protein Calculated ~70gm/day Fluid: ml ~1972-0629 ml/day (1 ml/kcal) Nutritional Problem 1. Problem Problem inadequate oral intake related to Etiology possible poor appetite/ confusion aeb Signs/Symptoms: PO intake <50% of meals on average. Intervention/Recommendation Comments 1. Continue mechanical soft, 60gm CCHO, JOSE ROBERTO diet with Ensure Enlive TID. 2. Encourage oral intake of meals and supplements and assist with meals as needed. Expected Outcomes/Goals Expected Outcomes/Goals Oral intake >75% Of meals, weight stable, nutrition related labs WNL F/U MR 06/28-
--- NOTE | 2019-06-27 20:40 | Progress Notes ---
DATE: 06/27/2019 SUBJECTIVE: The patient was asleep in bed when approached. The patient responded to physical and verbal stimuli. The patient opened his eyes and smiled. The patient reported that he is feeling better. When asked what caused him to feel better, the patient reported that this sports book writer had given him the right medications. The patient reported that he has been eating more. He ate most of his breakfast including cereals and egg. The patient reports that he did not sleep well last night because it was cold. When asked if he still hears voices, the patient stated not as much. When asked if he still see people that are not there, the [place]. When asked what he was wearing, the patient stated "summer clothes." In the past, the patient had stated that he had seen armies and navies, so this sports book writer is wondering whether the patient continued to see the same thing that he reported before. OBJECTIVE: The patient continued to be cheerful when approached and talked to. The patient seems to be smiling more easily. The staff reported that the patient continued to have poor appetite and not taking much of liquid. The staff also reported that the patient continued to have problem taking medications. The staff had to approach him several times before he would finally take his medications. The staff reported that the patient's blood pressure was elevated yesterday and was given a dose of clonidine, which brought down the blood pressure. The staff reported that the patient continued to be sleeping okay about 5 hours. The staff reported that the patient continued to be depressed and withdrawn, not wanting to participate in any activities. 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 2. Psychotic disorder and mood disorder, depressed due to medical condition. 3. Impulse control disorder, not otherwise specified. 4. 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 PLAN: We will continue current medications. We will change Megace to 30 minutes before breakfast and dinner. The patient did receive a dose of Provigil yesterday and this morning. We will monitor the patient's response to the medication. JOB# [id number] [facility]
[2019-06-28] MEDS: Pantoprazole 40 mg EC Tab PO SCH (06:40)
[2019-06-28] MEDS: Aspirin 81mg Chewable Tab PO SCH (09:07)
--- NOTE | 2019-06-28 12:18 | Internal Medicine Prog Note ---
Internal Medicine Subjective - Subjective Patient seen and examined:: with staff, chart reviewed Patient is:: awake, verbal, interactive, in bed, confused, other (very thin) Patient Complaints of:: congestion Per staff patient has:: no adverse event, no episodes of fall, poor appetite Internal Medicine Objective - Physical Exam Vitals and I&O: Vital Signs Temp 97.4 F 06/28/19 06:06 Pulse 102 06/28/19 09:06 Resp 18 06/28/19 07:28 BP 114/49 06/28/19 09:06 Pulse Ox 97 06/28/19 06:06 Intake & Output 06/27/19 06/28/19 06/28/19 18:59 06:59 18:59 Intake Total 700 300 Balance 700 300 Intake: Oral 700 300 Other: # Voids 3 1 # Bowel Movements 0 0 Active Medications: Current Medications Acetaminophen (Tylenol) 650 mg PO Q4H PRN PRN Reason: Pain or Fever >101 Stop: 08/20/19 22:59 Amlodipine Besylate (Norvasc) 10 mg PO DAILY [facility] Stop: 08/26/19 08:59 Last Admin: 06/28/19 09:06 Dose: 10 mg Aripiprazole (Abilify) 5 mg PO DAILY [facility]; Protocol Stop: 08/24/19 08:59 Last Admin: 06/28/19 09:07 Dose: 5 mg Aspirin (Aspirin Chewable) 81 mg PO DAILY [facility] Stop: 08/21/19 08:59 Last Admin: 06/28/19 09:07 Dose: 81 mg Carbidopa/Levodopa (Sinemet 25 Mg-250 Mg) 1 tab PO BID [facility] Stop: 08/21/19 08:59 Last Admin: 06/28/19 09:07 Dose: 1 tab Docusate Sodium (Colace) 100 mg PO BID [facility] Stop: 08/21/19 08:59 Last Admin: 06/28/19 09:07 Dose: 100 mg Lisinopril (Zestril) 20 mg PO DAILY [facility] Stop: 08/26/19 08:59 Last Admin: 06/28/19 09:06 Dose: 20 mg Loratadine (Claritin) 10 mg PO QPM [facility] Stop: 08/21/19 16:59 Last Admin: 06/27/19 17:18 Dose: 10 mg Lorazepam (Ativan) 0.5 mg PO Q4HR PRN; Protocol PRN Reason: Anxiety Stop: 07/21/19 20:41 Megestrol Acetate (Megace) 400 mg PO BIDBRS@2926,1890 [facility] Stop: 08/26/19 16:29 Last Admin: 06/28/19 06:40 Dose: 400 mg Mirtazapine (Remeron) 30 mg PO HS [facility]; Protocol Stop: 08/22/19 20:59 Last Admin: 06/27/19 21:01 Dose: 30 mg Modafinil (Provigil) 100 mg PO DAILY [facility]; Protocol Stop: 08/24/19 08:59 Last Admin: 06/28/19 09:07 Dose: 100 mg Pantoprazole Sodium (Protonix) 40 mg PO QDAC [facility] Stop: 08/21/19 07:29 Last Admin: 06/28/19 06:40 Dose: 40 mg Zolpidem Tartrate (Ambien) 5 mg PO HS PRN PRN Reason: Insomnia Stop: 08/20/19 20:41 Last Admin: 06/27/19 21:03 Dose: 5 mg General: congested, demented, disheveled, thin, appears older HEENT: NC/AT, PERRLA Neck: Supple, No JVD Lungs: rales Cardiovascular: RRR, Normal S1, Normal S2, with murmur Abdomen: soft, thin, non-distended, positive bowel sound Extremities: excoriation, contracture Neurological: no change - Procedures Procedures: Procedures Procedure Code Date EXCISION OF ESOPHAGUS, ENDO, DIAGN [id number] 09/09/17 EXCISION OF STOMACH, ENDO, DIAGN [id number] 09/09/17 Internal Medicine Assmt/Plan - Assessment Assessment: ASSESSMENT AND PLAN: Malnutrition, Parkinson, hypertension, chronic obstructive pulmonary disease, gastroesophageal reflux disease, allergic rhinitis, history of hyperglycemia. - Plan Plan: PLAN: We will continue to check hemoglobin A1c. We will liberalize the patient's diet. Continue on Sinemet. We will continue proton pump inhibitor. We will provide the patient __nsaids__ treatment. We will add Megace. We will follow the patient closely with you, Dr Feliz. Nutritional Asmnt/Malnutr-PDOC - Dietary Evaluation Malnutrition Findings (Please click <Entered> for more info): Nutritional Asmnt/Malnutrition Start: 06/25/19 11: 42 Text: Status: Complete Freq: Protocol: Document 06/25/19 11:42 GIDEONEDITH (Rec: 06/25/19 12:15 PAEVL NATY- FNS1) Nutritional Asmnt/Malnutrition Patient General Information Nutritional Screening Moderate Risk Diagnosis Psychosis Pertinent Medical Hx/Surgical Hx malnutrition, Parkinsons, Hypertension, COPD, GERD Subjective Information [facility]. Patient asleep at time of visit Current Diet Order/ Nutrition Support Mechanical soft, JOSE ROBERTO, 60 gm CCHO, Ensure Enlive TID Patient / S.O Not Indicated Pertinent Medications Colace, Megace, protonix Pertinent Labs Lipid panel WNL Nutritional Hx/Data Height 1.73 m Height (Calculated Centimeters) 172.7 Current Weight (lbs) 63.503 kg Weight (Calculated Kilograms) 63.5 Weight (Calculated Grams) 15678.9 [place] Body Weight 154 % [place] Body Weight 90 Body Mass Index (BMI) 21.2 Recent Weight Change No Weight Status Approriate GI Symptoms GI Symptoms None Last BM 06/25 x 1 Difficult in: None Food Allergies No Cultural/Ethnic/Jew Belief none indicated Usual diet at home unknown Skin Integrity/Comment: Vinayak 17, Bruises Current %PO Poor (25-49%) Estimated Nutritional Goals BEE in Kcals: Using Current wt Calories/Kcals/Kg 70kg [place] BW Kcals Calculated ~8274-0110 kcal/day Protein: Using Current wt Protein g/kg: (1 gm/kg) Protein Calculated ~70gm/day Fluid: ml ~4532-1749 ml/day (1 ml/kcal) Nutritional Problem 1. Problem Problem inadequate oral intake related to Etiology possible poor appetite/ confusion aeb Signs/Symptoms: PO intake <50% of meals on average. Intervention/Recommendation Comments 1. Continue mechanical soft, 60gm CCHO, JOSE ROBERTO diet with Ensure Enlive TID. 2. Encourage oral intake of meals and supplements and assist with meals as needed. Expected Outcomes/Goals Expected Outcomes/Goals Oral intake >75% Of meals, weight stable, nutrition related labs WNL F/U MR 06/28-
--- NOTE | 2019-06-28 21:18 | Progress Notes ---
DATE: 06/28/2019 SUBJECTIVE: The patient was asleep in bed when approached. The patient was difficult to arouse this morning. The patient was not able to respond to any question, not able to follow any command. OBJECTIVE: The patient is more sleepy this morning; therefore, unable to obtain any information from the patient. The staff reported that the patient ate most of his oatmeal and some of the fruit. The patient appeared to have problem chewing his food. Staff reported that the patient continued to take his medication when given with applesauce. The patient has been eating a little bit more. The patient was given Ambien last night. Staff reported that the patient continue to decline to getting up in the wheelchair and therefore has not attended any activities. 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 2. Psychotic disorder and mood disorder, depressed due to medical condition. 3. Impulse control disorder, not otherwise specified. 4. 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 PLAN: We will continue the patient on current medication. The patient appeared to show improvement with increased appetite and increased compliance with treatment and taking his medication more regularly. JOB# [id number] TROY
[2019-06-29] MEDS: Pantoprazole 40 mg EC Tab PO SCH (06:56)
[2019-06-29] MEDS: Aspirin 81mg Chewable Tab PO SCH (09:11)
--- NOTE | 2019-06-29 12:33 | Internal Medicine Prog Note ---
Internal Medicine Subjective - Subjective Patient seen and examined:: with staff (ate 30 percent), chart reviewed, other ( late entry, noted to have low bp, bp meds held ) Patient is:: awake, verbal, interactive, in bed, confused, other (very thin) Patient Complaints of:: congestion Per staff patient has:: no adverse event, no episodes of fall, poor appetite Internal Medicine Objective - Physical Exam Vitals and I&O: Vital Signs Temp 98.4 F 06/29/19 06:47 Pulse 95 06/29/19 09:24 Resp 18 06/29/19 08:00 BP 97/57 06/29/19 09:24 Pulse Ox 94 06/29/19 08:00 Intake & Output 06/28/19 06/29/19 06/29/19 18:59 06:59 18:59 Intake Total 120 120 Balance 120 120 Intake: Oral 120 120 Other: # Voids 2 1 # Bowel Movements 0 0 Active Medications: Current Medications Acetaminophen (Tylenol) 650 mg PO Q4H PRN PRN Reason: Pain or Fever >101 Stop: 08/20/19 22:59 Amlodipine Besylate (Norvasc) 10 mg PO DAILY [facility] Stop: 08/26/19 08:59 Last Admin: 06/29/19 09:24 Dose: Not Given Aripiprazole (Abilify) 5 mg PO DAILY [facility]; Protocol Stop: 08/24/19 08:59 Last Admin: 06/29/19 09:11 Dose: 5 mg Aspirin (Aspirin Chewable) 81 mg PO DAILY [facility] Stop: 08/21/19 08:59 Last Admin: 06/29/19 09:11 Dose: 81 mg Carbidopa/Levodopa (Sinemet 25 Mg-250 Mg) 1 tab PO BID [facility] Stop: 08/21/19 08:59 Last Admin: 06/29/19 09:11 Dose: 1 tab Docusate Sodium (Colace) 100 mg PO BID [facility] Stop: 08/21/19 08:59 Last Admin: 06/29/19 09:11 Dose: 100 mg Lisinopril (Zestril) 20 mg PO DAILY [facility] Stop: 08/26/19 08:59 Last Admin: 06/29/19 09:24 Dose: Not Given Loratadine (Claritin) 10 mg PO QPM [facility] Stop: 08/21/19 16:59 Last Admin: 06/28/19 16:22 Dose: 10 mg Lorazepam (Ativan) 0.5 mg PO Q4HR PRN; Protocol PRN Reason: Anxiety Stop: 07/21/19 20:41 Megestrol Acetate (Megace) 400 mg PO BIDBRS@9730,6330 [facility] Stop: 08/26/19 16:29 Last Admin: 06/29/19 06:56 Dose: 400 mg Mirtazapine (Remeron) 30 mg PO HS [facility]; Protocol Stop: 08/22/19 20:59 Last Admin: 06/28/19 21:55 Dose: 30 mg Modafinil (Provigil) 100 mg PO DAILY [facility]; Protocol Stop: 08/24/19 08:59 Last Admin: 06/29/19 09:13 Dose: 100 mg Pantoprazole Sodium (Protonix) 40 mg PO QDAC [facility] Stop: 08/21/19 07:29 Last Admin: 06/29/19 06:56 Dose: 40 mg Zolpidem Tartrate (Ambien) 5 mg PO HS PRN PRN Reason: Insomnia Stop: 08/20/19 20:41 Last Admin: 06/27/19 21:03 Dose: 5 mg General: congested, demented, disheveled, thin, appears older HEENT: NC/AT, PERRLA Neck: Supple, No JVD Lungs: rales Cardiovascular: RRR, Normal S1, Normal S2, with murmur Abdomen: soft, thin, non-distended, positive bowel sound Extremities: excoriation, contracture Neurological: no change - Procedures Procedures: Procedures Procedure Code Date EXCISION OF ESOPHAGUS, ENDO, DIAGN [id number] 09/09/17 EXCISION OF STOMACH, ENDO, DIAGN [id number] 09/09/17 Internal Medicine Assmt/Plan - Assessment Assessment: ASSESSMENT AND PLAN: hypotension, Malnutrition, Parkinson, hypertension, chronic obstructive pulmonary disease, gastroesophageal reflux disease, allergic rhinitis, history of hyperglycemia. - Plan Plan: PLAN: staff transferring pt via 911 to [facility] We will liberalize the patient's diet. Continue on Sinemet. We will continue proton pump inhibitor. We will add Megace. We will follow the patient closely with you, Dr Feliz. Nutritional Asmnt/Malnutr-PDOC - Dietary Evaluation Malnutrition Findings (Please click <Entered> for more info): Nutritional Asmnt/Malnutrition Start: 06/25/19 11: 42 Text: Status: Complete Freq: Protocol: Document 06/25/19 11:42 PAVEL (Rec: 06/25/19 12:15 PAVEL NATY- FNS1) Nutritional Asmnt/Malnutrition Patient General Information Nutritional Screening Moderate Risk Diagnosis Psychosis Pertinent Medical Hx/Surgical Hx malnutrition, Parkinsons, Hypertension, COPD, GERD Subjective Information Patient was [facility]. Patient asleep at time of visit Current Diet Order/ Nutrition Support Mechanical soft, JOSE ROBRETO, 60 gm CCHO, Ensure Enlive TID Patient / S.O Not Indicated Pertinent Medications Colace, Megace, protonix Pertinent Labs Lipid panel WNL Nutritional Hx/Data Height 1.73 m Height (Calculated Centimeters) 172.7 Current Weight (lbs) 63.503 kg Weight (Calculated Kilograms) 63.5 Weight (Calculated Grams) 59170.9 [place] Body Weight 154 % [place] Body Weight 90 Body Mass Index (BMI) 21.2 Recent Weight Change No Weight Status Approriate GI Symptoms GI Symptoms None Last BM 06/25 x 1 Difficult in: None Food Allergies No Cultural/Ethnic/Yarsani Belief none indicated Usual diet at home unknown Skin Integrity/Comment: Vinayak 17, Bruises Current %PO Poor (25-49%) Estimated Nutritional Goals BEE in Kcals: Using Current wt Calories/Kcals/Kg 70kg [place] BW Kcals Calculated ~0981-0420 kcal/day Protein: Using Current wt Protein g/kg: (1 gm/kg) Protein Calculated ~70gm/day Fluid: ml ~2559-1995 ml/day (1 ml/kcal) Nutritional Problem 1. Problem Problem inadequate oral intake related to Etiology possible poor appetite/ confusion aeb Signs/Symptoms: PO intake <50% of meals on average. Intervention/Recommendation Comments 1. Continue mechanical soft, 60gm CCHO, JOSE ROBERTO diet with Ensure Enlive TID. 2. Encourage oral intake of meals and supplements and assist with meals as needed. Expected Outcomes/Goals Expected Outcomes/Goals Oral intake >75% Of meals, weight stable, nutrition related labs WNL F/U MR 06/28-
--- NOTE | 2019-06-29 20:13 | Discharge Summary ---
DATE OF DISCHARGE: 06/29/2019 REASON FOR ADMISSION: The patient was admitted for increased episodes of refusing care and treatment and being agitated with the staff and increased confusion. HISTORY OF PRESENT ILLNESS: The patient is an 89-year-old male from [facility]. On the day of admission, the staff requested inpatient treatment because of change in condition of the patient with increased episodes of refusing care and medications. The patient has increased confusion and also a scar on the right side of the abdomen. The patient appeared to be a poor historian. The patient was able to give his name, but not his age. The patient was able to give his birthday. The patient was not able to say why he is here. The patient reported that he has not been eating well, but not able to say why he is having problem eating. The patient admitted to having some problems sleeping. The patient admitted to feeling depressed. The patient complained of pain in his abdomen close to midline, but not able to say why he is having the pain. The patient stated that he has been having it for about a week. The patient reported that he has been hearing voices and seeing things and feeling that people are watching him, talking about him how to get him. HOSPITAL COURSE: Upon admission, the patient was continued on his preadmission medications. Since the patient admitted to having auditory and visual hallucination and delusions; therefore, the patient was started on Abilify 2 mg p.o. q.a.m. The patient continues on the Ativan p.r.n. as well as Megace 400 mg twice a day. The patient also has Ambien p.r.n. During the early part of his admission, the patient continued to report having visual hallucinations and delusions. At one point, the patient [place]. The patient reported that he had seen people in [email or web address] and [employer] uniform before and therefore his Abilify was increased from 2 mg to 5 mg. Since the patient has poor appetite; therefore, the patient was started on Remeron 30 mg p.o. at bedtime. Later on, Provigil was added since the patient appeared to be depressed with lack of motivation and poor appetite; therefore, with the hope that the Provigil will be able to stimulate patient and energize the patient so that the patient will feel like getting out of bed and go to activities as well as improving his appetite. The patient did show some improvement on the Remeron and the Provigil. For a couple of days, the patient seems to have more energy. The patient was more alert in the morning and cheerful. When asked why he is feeling better, the patient stated "because of you." On the day of discharge, the staff noticed that the patient has low blood pressure in 50s and 40s systolic pressure, but continued to have normal rate of breathing. Since the patient showed sign of increased lethargy, therefore it was determined that it will be safer for the patient to be transferred to a medical hospital. CONDITION AT THE TIME OF DISCHARGE: The patient was discharged in declining condition, less alert and not responding verbally. The patient was able to follow some commands such as "open your eyes." The patient attempted to respond verbally; however, the patient was not able to make any words. LAB RESULTS: There was no lab results done during this hospitalization. The lab was done at [facility]. MEDICATIONS: The patient will be discharged on Tylenol, Norvasc, Abilify 5 mg p.o. q.a.m., aspirin, Sinemet, Colace, Zestril, Claritin, Ativan 0.5 mg q.4h. p.r.n., Megace 400 mg q. 12h. before meals, Remeron 30 mg at bedtime, Provigil 100 mg daily, Protonix, Ambien 5 mg at bedtime p.r.n. 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 2: Psychotic disorder and mood disorder, depressed, due to medical condition. 3: Impulse control disorder NOS. 4: Personality change due to medical condition. JOB# [id number] TROY
== END 2019-06-29 12:15 | disposition short-term general hospital (02) | DRG 885 ==
LOC: GERO 20:00
PROVIDERS: ADMIT Psychiatry & Neurology Psychiatry; ATTEND Psychiatry & Neurology Psychiatry
DX: F29 Unspecified psychosis not due to a substance or known physiological condition (principal); F02.81 Dementia in other diseases classified elsewhere, unspecified severity, with behavioral disturbance; E46 Unspecified protein-calorie malnutrition; F32.9 Major depressive disorder, single episode, unspecified; F63.9 Impulse disorder, unspecified; F68.8 Other specified disorders of adult personality and behavior; G30.9 Alzheimer's disease, unspecified; G20 Parkinson's disease; I10 Essential (primary) hypertension; J44.9 Chronic obstructive pulmonary disease, unspecified; K21.9 Gastro-esophageal reflux disease without esophagitis; J30.9 Allergic rhinitis, unspecified; L40.9 Psoriasis, unspecified; Z68.21 Body mass index [BMI] 21.0-21.9, adult
CPT/HCPCS: 83036-90; Z7610

== ENCOUNTER 2019-06-30 10:55 | Inpatient (IN) | payer MEDICARE ==
[2019-07-01 18:39] VITALS: BP 142/59
[2019-07-02] MEDS ORDERED: guaiFENesin 200 MG/10 ML UDC PO PRN (04:44)
--- NOTE | 2019-07-02 10:28 | Internal Medicine Prog Note ---
Internal Medicine Subjective - Subjective Patient seen and examined:: with staff, chart reviewed, other (eating a bit more per staff) Patient is:: awake, verbal, interactive, in bed Per staff patient has:: no adverse event, no episodes of fall, poor appetite Internal Medicine Objective - Physical Exam Vitals and I&O: Vital Signs Temp 97.4 F 07/02/19 05:22 Pulse 96 07/02/19 05:22 Resp 18 07/02/19 08:00 BP 145/82 07/02/19 05:22 Pulse Ox 97 07/02/19 05:22 Intake & Output 07/01/19 07/02/19 07/02/19 18:59 06:59 18:59 Intake Total 240 Balance 240 Intake: Oral 240 Other: # Voids 2 # Bowel Movements 0 Weight Source Bedscale Active Medications: Current Medications Acetaminophen (Tylenol) 650 mg PO Q4H PRN PRN Reason: Pain or Fever >101 Stop: 08/31/19 04:30 Aripiprazole (Abilify) 5 mg PO DAILY [facility]; Protocol Stop: 08/31/19 08:59 Carbidopa/Levodopa (Sinemet 25 Mg-250 Mg) 1 tab PO TID [facility] Stop: 08/31/19 08:59 Last Admin: 07/02/19 09:12 Dose: 1 tab Docusate Sodium (Colace) 250 mg PO DAILY PRN PRN Reason: Constipation Stop: 08/31/19 08:59 Docusate Sodium (Colace) 100 mg PO BID [facility] Stop: 08/31/19 16:59 Guaifenesin (Robitussin) 200 mg PO Q4HR PRN PRN Reason: Cough or Congestion Stop: 08/31/19 04:43 Loratadine (Claritin) 10 mg PO QPM [facility] Stop: 08/31/19 16:59 Lorazepam (Ativan) 0.5 mg PO Q4HR PRN; Protocol PRN Reason: agitation/anxiety Stop: 08/01/19 04:01 Megestrol Acetate (Megace) 400 mg PO BID [facility]; Protocol Stop: 08/31/19 08:59 Last Admin: 07/02/19 09:11 Dose: 400 mg Modafinil (Provigil) 100 mg PO DAILY [facility]; Protocol Stop: 08/31/19 08:59 Last Admin: 07/02/19 09:12 Dose: 100 mg Pantoprazole Sodium (Protonix) 40 mg PO QDAC [facility] Stop: 09/01/19 07:29 Zolpidem Tartrate (Ambien) 5 mg PO HSMR1 PRN PRN Reason: Insomnia Stop: 08/31/19 04:01 Zolpidem Tartrate (Ambien) 5 mg PO HS PRN PRN Reason: Insomnia Stop: 08/31/19 10:21 General: demented HEENT: NC/AT, PERRLA, EOMI Neck: Supple, No JVD, No thyromegaly Lungs: CTAB Cardiovascular: RRR, Normal S1, Normal S2, with murmur Abdomen: soft, thin, non-distended, positive bowel sound Extremities: excoriation, contracture, deformity Neurological: no change, disorganized - Procedures Procedures: Procedures Procedure Code Date EXCISION OF ESOPHAGUS, ENDO, DIAGN [id number] 09/09/17 EXCISION OF STOMACH, ENDO, DIAGN [id number] 09/09/17 Internal Medicine Assmt/Plan - Assessment Assessment: Assessment: ASSESSMENT AND PLAN: episode of hypotension, Malnutrition, Parkinson, h/o hypertension, chronic obstructive pulmonary disease, gastroesophageal reflux disease, allergic rhinitis, history of hyperglycemia. - Plan Plan: - Plan Plan: PLAN: We will liberalize the patient's diet. Continue on Sinemet. We will continue proton pump inhibitor. We will add Megace. hold routine anti hypertensive meds for now We will follow the patient closely with you, Dr Feliz.
--- NOTE | 2019-07-02 23:31 | Psychiatric Evaluation ---
DATE OF SERVICE: 07/01/2019 PSYCHIATRIC EVALUATION IDENTIFYING DATA AND HISTORY OF PRESENT ILLNESS: The patient is an 89-year-old male, a resident of [facility] recently admitted over here and following the discharge, the patient is reported to have been having difficult time to cope with the stress and the patient has been referred over here. At the time of the evaluation, the patient is noted to be hypotensive. The patient was transferred out to the medical unit and he was stabilized over there and has been referred back to the [facility] from [facility]. The patient has been spoken to. Chart is reviewed. Staff was spoken to. The patient is stating that he went to the hospital because he had a brain tumor. The patient is not making much sense. The patient is still confused. The patient is a very poor historian and has not been able to give any decent information and has been going on a tangent. The patient's sleep and appetite prior to the hospitalization are reported to be poor. PAST PSYCHIATRIC HISTORY: Please refer to the above. The patient was hospitalized here in this month on 06/22/[address] and was seen by Dr. Feliz and has been diagnosed to have dementia of the Alzheimer's type with psychotic symptoms. MEDICAL HISTORY AND PHYSICAL EXAMINATION: Requested to be done by Dr. Shaver and significant for Parkinson's disease, COPD, diabetes mellitus, and psoriasis. ALLERGIES: Noted. MEDICATIONS: The patient is currently on Aricept and Nuvigil. Plan to hold these medications until the patient is medically stabilized. SOCIAL HISTORY: The patient is a resident of the [facility]. PHYSICAL OR SEXUAL ABUSE HISTORY: None. MENTAL STATUS EXAMINATION: The patient is an 89-year-old thin built, very fragile, confused and not able to provide much of the information. Speech is noted to be coherent, but speaks in a low tone and the patient was on a tangent. The patient is not able to provide any decent information. The patient's attention span and concentration are noted to be very poor. The patient has paranoia and is going on a tangent and is mentioning that he has a brain tumor that is the reason why he has to go to the hospital for surgery. The patient is reported to have been noncompliant to the medication. The patient knows, however, that he is in the hospital. Short and long-term memory are noted to be very poor. Insight and judgment are also noted to be very much impaired. DIAGNOSTIC IMPRESSION: AXIS I: Dementia of Alzheimer's type. AXIS II: None. AXIS III: As per Dr. Shaver. IMMEDIATE TREATMENT PLAN: The patient is going to be observed on the inpatient unit, provided with supportive psychotherapy. Encouraged to participate in groups and verbalize the concerns. The patient is going to be closely monitored and the Abilify is going to be restarted once he is stable. JOB# [id number]
[2019-07-03] MEDS: Pantoprazole 40 mg EC Tab PO SCH (06:49)
--- NOTE | 2019-07-03 15:13 | Internal Medicine Prog Note ---
Internal Medicine Subjective - Subjective Patient seen and examined:: with staff, chart reviewed Patient is:: awake, verbal, interactive, in bed Per staff patient has:: no adverse event, no episodes of fall, poor appetite Internal Medicine Objective - Physical Exam Vitals and I&O: Vital Signs Temp 97.6 F 07/03/19 14:00 Pulse 96 07/03/19 14:00 Resp 18 07/03/19 14:00 BP 136/71 07/03/19 14:00 Pulse Ox 95 07/03/19 14:00 Intake & Output 07/02/19 07/03/19 07/03/19 18:59 06:59 18:59 Intake Total 960 120 Balance 960 120 Intake: Oral 960 120 Other: # Voids 2 1 # Bowel Movements 1 0 Active Medications: Current Medications Acetaminophen (Tylenol) 650 mg PO Q4H PRN PRN Reason: Pain or Fever >101 Stop: 08/31/19 04:30 Aripiprazole (Abilify) 2 mg PO DAILY [facility]; Protocol Stop: 09/02/19 08:59 Carbidopa/Levodopa (Sinemet 25 Mg-250 Mg) 1 tab PO TID [facility] Stop: 08/31/19 08:59 Last Admin: 07/03/19 14:57 Dose: 1 tab Docusate Sodium (Colace) 250 mg PO DAILY PRN PRN Reason: Constipation Stop: 08/31/19 08:59 Docusate Sodium (Colace) 100 mg PO BID [facility] Stop: 08/31/19 16:59 Last Admin: 07/03/19 08:19 Dose: 100 mg Guaifenesin (Robitussin) 200 mg PO Q4HR PRN PRN Reason: Cough or Congestion Stop: 08/31/19 04:43 Loratadine (Claritin) 10 mg PO QPM [facility] Stop: 08/31/19 16:59 Last Admin: 07/02/19 18:03 Dose: Not Given Lorazepam (Ativan) 0.5 mg PO Q4HR PRN; Protocol PRN Reason: agitation/anxiety Stop: 08/01/19 04:01 Megestrol Acetate (Megace) 400 mg PO BID [facility]; Protocol Stop: 08/31/19 08:59 Last Admin: 07/03/19 08:19 Dose: 400 mg Modafinil (Provigil) 100 mg PO DAILY [facility]; Protocol Stop: 08/31/19 08:59 Last Admin: 07/03/19 08:19 Dose: 100 mg Pantoprazole Sodium (Protonix) 40 mg PO QDAC [facility] Stop: 09/01/19 07:29 Last Admin: 07/03/19 06:49 Dose: 40 mg Zolpidem Tartrate (Ambien) 5 mg PO HSMR1 PRN PRN Reason: Insomnia Stop: 08/31/19 04:01 General: demented HEENT: NC/AT, PERRLA, EOMI Neck: Supple, No JVD, No thyromegaly Lungs: CTAB Cardiovascular: RRR, Normal S1, Normal S2, with murmur Abdomen: soft, thin, non-distended, positive bowel sound Extremities: excoriation, contracture, deformity Neurological: no change, disorganized - Procedures Procedures: Procedures Procedure Code Date EXCISION OF ESOPHAGUS, ENDO, DIAGN [id number] 09/09/17 EXCISION OF STOMACH, ENDO, DIAGN [id number] 09/09/17 Internal Medicine Assmt/Plan - Assessment Assessment: Assessment: ASSESSMENT AND PLAN: episode of hypotension, Malnutrition, Parkinson, h/o hypertension, chronic obstructive pulmonary disease, gastroesophageal reflux disease, allergic rhinitis, history of hyperglycemia. - Plan Plan: - Plan Plan: PLAN: We will liberalize the patient's diet. Continue on Sinemet. We will continue proton pump inhibitor. We will add Megace. hold routine anti hypertensive meds for now We will follow the patient closely with you, Dr Feliz.
--- NOTE | 2019-07-04 03:06 | Progress Notes ---
DATE: 07/03/2019 PSYCHIATRIC PROGRESS NOTE SUBJECTIVE: Staff was spoken to. The patient is interviewed. Mood is noted to be irritable. Affect is constricted. The patient has paranoia, but denies any command hallucinations. Insight and judgment at this time are noted to be still impaired. Impulse control is noted to be limited. The patient, however, has been reluctant to comply with the medications. No side effects to the medications are noted. ASSESSMENT: The patient is still paranoid. PLAN: To start the patient on Abilify at 2 mg in the morning and the patient is going to be followed up with the supportive therapy. The patient's blood pressure is being closely monitored at this time. [facility]# [id number]
[2019-07-04] MEDS: Pantoprazole 40 mg EC Tab PO SCH (06:52)
--- NOTE | 2019-07-04 12:46 | Internal Medicine Prog Note ---
Internal Medicine Subjective - Subjective Patient seen and examined:: with staff, chart reviewed Patient is:: awake, verbal, interactive, in bed Per staff patient has:: no adverse event, no episodes of fall, poor appetite Internal Medicine Objective - Physical Exam Vitals and I&O: Vital Signs Temp 97 F 07/04/19 06:45 Pulse 94 07/04/19 06:45 Resp 18 07/04/19 06:45 BP 119/76 07/04/19 06:45 Pulse Ox 97 07/04/19 06:45 Intake & Output 07/03/19 07/04/19 07/04/19 18:59 06:59 18:59 Intake Total 800 120 Balance 800 120 Intake: Oral 800 120 Other: # Voids 3 3 # Bowel Movements 1 Active Medications: Current Medications Acetaminophen (Tylenol) 650 mg PO Q4H PRN PRN Reason: Pain or Fever >101 Stop: 08/31/19 04:30 Aripiprazole (Abilify) 2 mg PO DAILY [facility]; Protocol Stop: 09/02/19 08:59 Last Admin: 07/04/19 09:53 Dose: Not Given Carbidopa/Levodopa (Sinemet 25 Mg-250 Mg) 1 tab PO TID [facility] Stop: 08/31/19 08:59 Last Admin: 07/04/19 08:13 Dose: 1 tab Docusate Sodium (Colace) 250 mg PO DAILY PRN PRN Reason: Constipation Stop: 08/31/19 08:59 Docusate Sodium (Colace) 100 mg PO BID [facility] Stop: 08/31/19 16:59 Last Admin: 07/04/19 08:13 Dose: 100 mg Guaifenesin (Robitussin) 200 mg PO Q4HR PRN PRN Reason: Cough or Congestion Stop: 08/31/19 04:43 Loratadine (Claritin) 10 mg PO QPM [facility] Stop: 08/31/19 16:59 Last Admin: 07/03/19 17:49 Dose: 10 mg Lorazepam (Ativan) 0.5 mg PO Q4HR PRN; Protocol PRN Reason: agitation/anxiety Stop: 08/01/19 04:01 Megestrol Acetate (Megace) 400 mg PO BID [facility]; Protocol Stop: 08/31/19 08:59 Last Admin: 07/04/19 08:14 Dose: 400 mg Modafinil (Provigil) 100 mg PO DAILY [facility]; Protocol Stop: 08/31/19 08:59 Last Admin: 07/04/19 08:13 Dose: 100 mg Multi-Ingredient Cream (Eucerin Cream) 1 appl TP BID [facility] Stop: 09/02/19 16:59 Pantoprazole Sodium (Protonix) 40 mg PO QDAC [facility] Stop: 09/01/19 07:29 Last Admin: 07/04/19 06:52 Dose: 40 mg Zolpidem Tartrate (Ambien) 5 mg PO HSMR1 PRN PRN Reason: Insomnia Stop: 08/31/19 04:01 General: demented HEENT: NC/AT, PERRLA, EOMI Neck: Supple, No JVD, No thyromegaly Lungs: CTAB Cardiovascular: RRR, Normal S1, Normal S2, with murmur Abdomen: soft, thin, non-distended, positive bowel sound Extremities: excoriation, contracture, deformity Neurological: no change, disorganized - Procedures Procedures: Procedures Procedure Code Date EXCISION OF ESOPHAGUS, ENDO, DIAGN [id number] 09/09/17 EXCISION OF STOMACH, ENDO, DIAGN [id number] 09/09/17 Internal Medicine Assmt/Plan - Assessment Assessment: Assessment: ASSESSMENT AND PLAN: episode of hypotension, Malnutrition, Parkinson, h/o hypertension, chronic obstructive pulmonary disease, gastroesophageal reflux disease, allergic rhinitis, history of hyperglycemia. - Plan Plan: - Plan Plan: PLAN: We will liberalize the patient's diet. Continue on Sinemet. We will continue proton pump inhibitor. We will add Megace. hold routine anti hypertensive meds for now We will follow the patient closely with you, Dr Feliz.
[2019-07-04] MEDS: Eucerin Cream 16 oz Jar TP SCH (18:28)
--- NOTE | 2019-07-04 22:41 | Progress Notes ---
DATE: 07/04/2019 SUBJECTIVE: Staff was spoken to. The patient is interviewed. Mood is noted to be irritable. Affect is constricted. The patient is isolative and withdrawn. Insight and judgment are noted to be impaired at this time. Impulse control is noted to be limited. Coping skills are noted to be limited. The patient is not making much sense. The patient, however, is not presenting with any major aggressive behavior today. The patient is currently on low dose of the Abilify. ASSESSMENT: The patient is still impulsive and paranoid. PLAN: To closely monitor the patient. I encouraged the patient to verbalize the concerns rather than to act out. JOB# [id number]
[2019-07-05] MEDS: Pantoprazole 40 mg EC Tab PO SCH (06:31)
[2019-07-05] MEDS: Eucerin Cream 16 oz Jar TP SCH ×2 (08:49→16:08)
--- NOTE | 2019-07-05 12:38 | Internal Medicine Prog Note ---
Internal Medicine Subjective - Subjective Patient seen and examined:: with staff, chart reviewed Patient is:: awake, verbal, interactive, in bed Per staff patient has:: no adverse event, no episodes of fall, poor appetite Internal Medicine Objective - Physical Exam Vitals and I&O: Vital Signs Temp 97.9 F 07/05/19 06:10 Pulse 93 07/05/19 06:10 Resp 16 07/05/19 07:50 BP 122/67 07/05/19 06:10 Pulse Ox 96 07/05/19 06:10 Intake & Output 07/04/19 07/05/19 07/05/19 18:59 06:59 18:59 Intake Total 180 Balance 180 Intake: Oral 180 Other: # Voids 1 # Bowel Movements 1 Active Medications: Current Medications Acetaminophen (Tylenol) 650 mg PO Q4H PRN PRN Reason: Pain or Fever >101 Stop: 08/31/19 04:30 Aripiprazole (Abilify) 2 mg PO DAILY [facility]; Protocol Stop: 09/02/19 08:59 Last Admin: 07/05/19 08:48 Dose: 2 mg Carbidopa/Levodopa (Sinemet 25 Mg-250 Mg) 1 tab PO TID [facility] Stop: 08/31/19 08:59 Last Admin: 07/05/19 08:48 Dose: 1 tab Docusate Sodium (Colace) 250 mg PO DAILY PRN PRN Reason: Constipation Stop: 08/31/19 08:59 Docusate Sodium (Colace) 100 mg PO BID [facility] Stop: 08/31/19 16:59 Last Admin: 07/05/19 08:49 Dose: 100 mg Guaifenesin (Robitussin) 200 mg PO Q4HR PRN PRN Reason: Cough or Congestion Stop: 08/31/19 04:43 Loratadine (Claritin) 10 mg PO QPM [facility] Stop: 08/31/19 16:59 Last Admin: 07/04/19 18:28 Dose: 10 mg Lorazepam (Ativan) 0.5 mg PO Q4HR PRN; Protocol PRN Reason: agitation/anxiety Stop: 08/01/19 04:01 Megestrol Acetate (Megace) 400 mg PO BID [facility]; Protocol Stop: 08/31/19 08:59 Last Admin: 07/05/19 08:49 Dose: 400 mg Modafinil (Provigil) 100 mg PO DAILY [facility]; Protocol Stop: 08/31/19 08:59 Last Admin: 07/05/19 08:49 Dose: 100 mg Multi-Ingredient Cream (Eucerin Cream) 1 appl TP BID [facility] Stop: 09/02/19 16:59 Last Admin: 07/05/19 08:49 Dose: 1 appl Pantoprazole Sodium (Protonix) 40 mg PO QDAC [facility] Stop: 09/01/19 07:29 Last Admin: 07/05/19 06:31 Dose: 40 mg Zolpidem Tartrate (Ambien) 5 mg PO HSMR1 PRN PRN Reason: Insomnia Stop: 08/31/19 04:01 General: demented HEENT: NC/AT, PERRLA, EOMI Neck: Supple, No JVD, No thyromegaly Lungs: CTAB Cardiovascular: RRR, Normal S1, Normal S2, with murmur Abdomen: soft, thin, non-distended, positive bowel sound Extremities: excoriation, contracture, deformity Neurological: no change, disorganized - Procedures Procedures: Procedures Procedure Code Date EXCISION OF ESOPHAGUS, ENDO, DIAGN [id number] 09/09/17 EXCISION OF STOMACH, ENDO, DIAGN [id number] 09/09/17 Internal Medicine Assmt/Plan - Assessment Assessment: Assessment: ASSESSMENT AND PLAN: episode of hypotension, Malnutrition, Parkinson, h/o hypertension, chronic obstructive pulmonary disease, gastroesophageal reflux disease, allergic rhinitis, history of hyperglycemia. - Plan Plan: - Plan Plan: PLAN: We will liberalize the patient's diet. Continue on Sinemet. We will continue proton pump inhibitor. We will add Megace. hold routine anti hypertensive meds for now We will follow the patient closely with you, Dr Feliz. Nutritional Asmnt/Malnutr-PDOC - Dietary Evaluation Malnutrition Findings (Please click <Entered> for more info): Nutritional Asmnt/Malnutrition Start: 07/04/19 13: 29 Text: Status: Complete Freq: Protocol: Document 07/04/19 13:30 ANAIS (Rec: 07/04/19 13:32 ANAIS [id number]) Nutritional Asmnt/Malnutrition Patient General Information Nutritional Screening Moderate Risk Consult Diagnosis Psychosis Pertinent Medical Hx/Surgical Hx Hypotension, malnutrition, Parkinsons Disease, COPD, GERD, Hyperglycemia Subjective Information Consult: Very thin, poor skin condition Pt is a 89-year-old male admitted on 07/01 c/o. Pt is eating 70% of meals since admittance (average 2 days) Per Meal/Nutrition Activity Record. Pt ate 25-50% 07/02, but 100% meals yesterday 07/03 . Dietary is currently providing an estimated 1950 kcals and 65 gm Pro, per Pt PO intake this is providing an estimated 1370 kcals and 45gm Pro to meet 80% kcal and 94% Pro needs- adequate. Pt is currently on Megace, will continue to monitor PO intake. Spoke with nurse Dmitry regarding Pete BID. Stated he understood, will F/U in 1-2 days to see if pt is taking it and how it is being tolerated . Anthropometrics HT: 58 WT: 140 LB (63.64 kg) BMI: 21.29 (Normal) GI/ Skin Integrity GI: WNL, flat BM: 07/04 x1 I/O: 920/Not Noted Skin: Redness, Flaking, Wound, generalized dry and scaly skin Wound: Redness and skin breakdown in coccyx area Vinayak: 15 Diet Order: Renal Standard, Chopped, Mechanical Soft Estimated Energy Needs: (Renal , CBW) 5504-1727 kcals (28-30 kcals/ kg) 48-51g Pro (0.75-0.8 g/kg) 8133-2388 ml (28-30 ml/kg) Current Diet Order/ Nutrition Support Renal Standard, Chopped, Mechanical Soft Pertinent Medications Colace, Megace, Protonix Pertinent Labs 07/01: Hgb/Hct 12.6/38.4, Na 135, BUN/Cr 27/1.43 Nutritional Hx/Data Height 1.73 m Height (Calculated Centimeters) 172.7 Current Weight (lbs) 63.503 kg Weight (Calculated Kilograms) 63.5 Weight (Calculated Grams) 73081.9 [place] Body Weight 154 LB (70 kg) % [place] Body Weight 91 Body Mass Index (BMI) 21.2 Weight Status Approriate GI Symptoms GI Symptoms None Last BM 07/04 x1 Skin Integrity/Comment: Skin: Redness, Flaking, Wound, generalized dry and scaly skin Wound: Redness and skin breakdown in coccyx area Vianyak: 15 Estimated Nutritional Goals BEE in Kcals: Using Current wt Calories/Kcals/Kg 28-30 Kcals Calculated 0337-8874 Protein: Using Current wt Protein g/k.75-0.8 Protein Calculated 48-51 Fluid: ml 7650-4238 ml (28-30 ml/kg) Nutritional Problem 1. Problem Problem Increased mineral/vitamin utilization Etiology r/t poor skin integrity/wounds Signs/Symptoms: aeb Redness, Flaking, Wound, generalized dry and scaly skin and redness and skin breakdown in coccyx area. Intervention/Recommendation Comments 1. Continue with Renal Standard, Chopped, Mechanical Soft diet as ordered. 2. Add Pete BID to support wound healing and improve skin integrity (completed). Expected Outcomes/Goals Expected Outcomes/Goals 1. PO intake to continue to meet >75% of nutritional needs . 2. Monitor PO intake, wt, nutrition related labs, and skin integrity to trend WNL. 3. F/U as moderate risk in 3-5 days, 07/07-07/09
--- NOTE | 2019-07-05 22:02 | Progress Notes ---
DATE: 07/05/2019 SUBJECTIVE: Staff was spoken to. The patient is interviewed. Mood is noted to be dysphoric. Affect is constricted. The patient has been isolative and withdrawn. Coping skills are noted to be very poor. The patient has both short-term and long-term memory deficits. The patient is having difficult time to participate in any of the groups. The patient gets easily agitated and aggressive when he feels that he is not cared for. The patient has both short-term and long-term memory deficits. ASSESSMENT: The patient is still impulsive and demented. PLAN: To continue the patient with the supportive therapy and followup. JOB# [id number]
[2019-07-06] MEDS: Pantoprazole 40 mg EC Tab PO SCH (06:46)
[2019-07-06] MEDS: Eucerin Cream 16 oz Jar TP SCH ×2 (09:48→18:16)
--- NOTE | 2019-07-06 12:34 | Internal Medicine Prog Note ---
Internal Medicine Subjective - Subjective Patient seen and examined:: with staff, chart reviewed Patient is:: awake, verbal, interactive, in bed Per staff patient has:: no adverse event, no episodes of fall, poor appetite Internal Medicine Objective - Physical Exam Vitals and I&O: Vital Signs Temp 97.3 F 07/06/19 06:09 Pulse 66 07/06/19 06:09 Resp 20 07/06/19 06:09 BP 135/72 07/06/19 06:09 Pulse Ox 98 07/06/19 06:09 Intake & Output 07/05/19 07/06/19 07/06/19 18:59 06:59 18:59 Intake Total 240 Output Total 1 Balance 239 Intake: Oral 240 Output: Urine/Stool Mix 1 Other: # Voids 3 # Bowel Movements 1 Stool Characteristics Soft Active Medications: Current Medications Acetaminophen (Tylenol) 650 mg PO Q4H PRN PRN Reason: Pain or Fever >101 Stop: 08/31/19 04:30 Aripiprazole (Abilify) 2 mg PO DAILY [facility]; Protocol Stop: 09/02/19 08:59 Last Admin: 07/06/19 09:17 Dose: 2 mg Carbidopa/Levodopa (Sinemet 25 Mg-250 Mg) 1 tab PO TID [facility] Stop: 08/31/19 08:59 Last Admin: 07/06/19 09:17 Dose: 1 tab Docusate Sodium (Colace) 250 mg PO DAILY PRN PRN Reason: Constipation Stop: 08/31/19 08:59 Docusate Sodium (Colace) 100 mg PO BID [facility] Stop: 08/31/19 16:59 Last Admin: 07/06/19 09:17 Dose: 100 mg Guaifenesin (Robitussin) 200 mg PO Q4HR PRN PRN Reason: Cough or Congestion Stop: 08/31/19 04:43 Loratadine (Claritin) 10 mg PO QPM [facility] Stop: 08/31/19 16:59 Last Admin: 07/05/19 16:09 Dose: 10 mg Lorazepam (Ativan) 0.5 mg PO Q4HR PRN; Protocol PRN Reason: agitation/anxiety Stop: 08/01/19 04:01 Megestrol Acetate (Megace) 400 mg PO BID [facility]; Protocol Stop: 08/31/19 08:59 Last Admin: 07/06/19 09:17 Dose: 400 mg Modafinil (Provigil) 100 mg PO DAILY [facility]; Protocol Stop: 08/31/19 08:59 Last Admin: 07/06/19 09:17 Dose: 100 mg Multi-Ingredient Cream (Eucerin Cream) 1 appl TP BID [facility] Stop: 09/02/19 16:59 Last Admin: 07/06/19 09:48 Dose: 1 appl Pantoprazole Sodium (Protonix) 40 mg PO QDAC [facility] Stop: 09/01/19 07:29 Last Admin: 07/06/19 06:46 Dose: 40 mg Zolpidem Tartrate (Ambien) 5 mg PO HSMR1 PRN PRN Reason: Insomnia Stop: 08/31/19 04:01 General: demented HEENT: NC/AT, PERRLA, EOMI Neck: Supple, No JVD, No thyromegaly Lungs: CTAB Cardiovascular: RRR, Normal S1, Normal S2, with murmur Abdomen: soft, thin, non-distended, positive bowel sound Extremities: excoriation, contracture, deformity Neurological: no change, disorganized - Procedures Procedures: Procedures Procedure Code Date EXCISION OF ESOPHAGUS, ENDO, DIAGN [id number] 09/09/17 EXCISION OF STOMACH, ENDO, DIAGN [id number] 09/09/17 Internal Medicine Assmt/Plan - Assessment Assessment: Assessment: ASSESSMENT AND PLAN: episode of hypotension, Malnutrition, Parkinson, h/o hypertension, chronic obstructive pulmonary disease, gastroesophageal reflux disease, allergic rhinitis, history of hyperglycemia. - Plan Plan: - Plan Plan: PLAN: We will liberalize the patient's diet. Continue on Sinemet. We will continue proton pump inhibitor. We will add Megace. hold routine anti hypertensive meds for now We will follow the patient closely with you, Dr Feliz. Nutritional Asmnt/Malnutr-PDOC - Dietary Evaluation Malnutrition Findings (Please click <Entered> for more info): Nutritional Asmnt/Malnutrition Start: 07/04/19 13: 29 Text: Status: Complete Freq: Protocol: Document 07/04/19 13:30 ANAIS (Rec: 07/04/19 13:32 ANAIS [id number]) Nutritional Asmnt/Malnutrition Patient General Information Nutritional Screening Moderate Risk Consult Diagnosis Psychosis Pertinent Medical Hx/Surgical Hx Hypotension, malnutrition, Parkinsons Disease, COPD, GERD, Hyperglycemia Subjective Information Consult: Very thin, poor skin condition Pt is a 89-year-old male admitted on 07/01 c/o. Pt is eating 70% of meals since admittance (average 2 days) Per Meal/Nutrition Activity Record. Pt ate 25-50% 07/02, but 100% meals yesterday 07/03 . Dietary is currently providing an estimated 1950 kcals and 65 gm Pro, per Pt PO intake this is providing an estimated 1370 kcals and 45gm Pro to meet 80% kcal and 94% Pro needs- adequate. Pt is currently on Megace, will continue to monitor PO intake. Spoke with nurse Dmitry regarding Pete BID. Stated he understood, will F/U in 1-2 days to see if pt is taking it and how it is being tolerated . Anthropometrics HT: 58 WT: 140 LB (63.64 kg) BMI: 21.29 (Normal) GI/ Skin Integrity GI: WNL, flat BM: 07/04 x1 I/O: 920/Not Noted Skin: Redness, Flaking, Wound, generalized dry and scaly skin Wound: Redness and skin breakdown in coccyx area Vinayak: 15 Diet Order: Renal Standard, Chopped, Mechanical Soft Estimated Energy Needs: (Renal , CBW) 9232-7353 kcals (28-30 kcals/ kg) 48-51g Pro (0.75-0.8 g/kg) 1824-1148 ml (28-30 ml/kg) Current Diet Order/ Nutrition Support Renal Standard, Chopped, Mechanical Soft Pertinent Medications Colace, Megace, Protonix Pertinent Labs 07/01: Hgb/Hct 12.6/38.4, Na 135, BUN/Cr 27/1.43 Nutritional Hx/Data Height 1.73 m Height (Calculated Centimeters) 172.7 Current Weight (lbs) 63.503 kg Weight (Calculated Kilograms) 63.5 Weight (Calculated Grams) 53008.9 [place] Body Weight 154 LB (70 kg) % [place] Body Weight 91 Body Mass Index (BMI) 21.2 Weight Status Approriate GI Symptoms GI Symptoms None Last BM 07/04 x1 Skin Integrity/Comment: Skin: Redness, Flaking, Wound, generalized dry and scaly skin Wound: Redness and skin breakdown in coccyx area Vinayak: 15 Estimated Nutritional Goals BEE in Kcals: Using Current wt Calories/Kcals/Kg 28-30 Kcals Calculated 7672-8067 Protein: Using Current wt Protein g/k.75-0.8 Protein Calculated 48-51 Fluid: ml 5401-6995 ml (28-30 ml/kg) Nutritional Problem 1. Problem Problem Increased mineral/vitamin utilization Etiology r/t poor skin integrity/wounds Signs/Symptoms: aeb Redness, Flaking, Wound, generalized dry and scaly skin and redness and skin breakdown in coccyx area. Intervention/Recommendation Comments 1. Continue with Renal Standard, Chopped, Mechanical Soft diet as ordered. 2. Add Pete BID to support wound healing and improve skin integrity (completed). Expected Outcomes/Goals Expected Outcomes/Goals 1. PO intake to continue to meet >75% of nutritional needs . 2. Monitor PO intake, wt, nutrition related labs, and skin integrity to trend WNL. 3. F/U as moderate risk in 3-5 days, 07/07-07/09
--- NOTE | 2019-07-06 21:57 | Progress Notes ---
DATE: 07/06/2019 SUBJECTIVE: Staff was spoken to. The patient is interviewed. Mood is noted to be less irritable. The patient is isolative and withdrawn. The patient's coping skills are noted to be very poor. The patient's sleep is noted to be poor. Appetite is noted to be improving. The patient, however, feels tired at this time. Aggressive behavior seems to be coming under control. No side effects to the medications are noted. ASSESSMENT: The patient is still having problem with the memory and impulsivity is a concern. PLAN: To continue the patient with the Abilify and followup. JOB# [id number]
[2019-07-07] MEDS: Pantoprazole 40 mg EC Tab PO SCH (06:41)
[2019-07-07] MEDS: Eucerin Cream 16 oz Jar TP SCH ×2 (08:33→17:24)
--- NOTE | 2019-07-07 13:01 | Internal Medicine Prog Note ---
Internal Medicine Subjective - Subjective Patient seen and examined:: with staff, chart reviewed Patient is:: awake, verbal, interactive, in bed Per staff patient has:: no adverse event, no episodes of fall, poor appetite Internal Medicine Objective - Physical Exam Vitals and I&O: Vital Signs Temp 97.2 F 07/07/19 06:46 Pulse 73 07/07/19 06:46 Resp 17 07/07/19 08:00 BP 121/58 07/07/19 06:46 Pulse Ox 100 07/07/19 06:46 Intake & Output 07/06/19 07/07/19 07/07/19 18:59 06:59 18:59 Intake Total 800 120 Balance 800 120 Intake: Oral 800 120 Other: # Voids 3 3 # Bowel Movements 1 Stool Characteristics Soft Active Medications: Current Medications Acetaminophen (Tylenol) 650 mg PO Q4H PRN PRN Reason: Pain or Fever >101 Stop: 08/31/19 04:30 Aripiprazole (Abilify) 2 mg PO DAILY [facility]; Protocol Stop: 09/02/19 08:59 Last Admin: 07/07/19 08:33 Dose: 2 mg Carbidopa/Levodopa (Sinemet 25 Mg-250 Mg) 1 tab PO TID [facility] Stop: 08/31/19 08:59 Last Admin: 07/07/19 08:33 Dose: 1 tab Docusate Sodium (Colace) 250 mg PO DAILY PRN PRN Reason: Constipation Stop: 08/31/19 08:59 Docusate Sodium (Colace) 100 mg PO BID [facility] Stop: 08/31/19 16:59 Last Admin: 07/07/19 08:33 Dose: 100 mg Guaifenesin (Robitussin) 200 mg PO Q4HR PRN PRN Reason: Cough or Congestion Stop: 08/31/19 04:43 Loratadine (Claritin) 10 mg PO QPM [facility] Stop: 08/31/19 16:59 Last Admin: 07/06/19 18:16 Dose: 10 mg Lorazepam (Ativan) 0.5 mg PO Q4HR PRN; Protocol PRN Reason: agitation/anxiety Stop: 08/01/19 04:01 Megestrol Acetate (Megace) 400 mg PO BID [facility]; Protocol Stop: 08/31/19 08:59 Last Admin: 07/07/19 08:33 Dose: 400 mg Modafinil (Provigil) 100 mg PO DAILY [facility]; Protocol Stop: 08/31/19 08:59 Last Admin: 07/07/19 08:33 Dose: 100 mg Multi-Ingredient Cream (Eucerin Cream) 1 appl TP BID [facility] Stop: 09/02/19 16:59 Last Admin: 07/07/19 08:33 Dose: 1 appl Pantoprazole Sodium (Protonix) 40 mg PO QDAC [facility] Stop: 09/01/19 07:29 Last Admin: 07/07/19 06:41 Dose: 40 mg Zolpidem Tartrate (Ambien) 5 mg PO HSMR1 PRN PRN Reason: Insomnia Stop: 08/31/19 04:01 General: demented HEENT: NC/AT, PERRLA, EOMI Neck: Supple, No JVD, No thyromegaly Lungs: CTAB Cardiovascular: RRR, Normal S1, Normal S2, with murmur Abdomen: soft, thin, non-distended, positive bowel sound Extremities: excoriation, contracture, deformity Neurological: no change, disorganized - Procedures Procedures: Procedures Procedure Code Date EXCISION OF ESOPHAGUS, ENDO, DIAGN [id number] 09/09/17 EXCISION OF STOMACH, ENDO, DIAGN [id number] 09/09/17 Internal Medicine Assmt/Plan - Assessment Assessment: Assessment: ASSESSMENT AND PLAN: episode of hypotension, Malnutrition, Parkinson, h/o hypertension, chronic obstructive pulmonary disease, gastroesophageal reflux disease, allergic rhinitis, history of hyperglycemia. - Plan Plan: - Plan Plan: PLAN: We will liberalize the patient's diet. Continue on Sinemet. We will continue proton pump inhibitor. We will add Megace. hold routine anti hypertensive meds for now We will follow the patient closely with you, Dr Feliz. Nutritional Asmnt/Malnutr-PDOC - Dietary Evaluation Malnutrition Findings (Please click <Entered> for more info): Nutritional Asmnt/Malnutrition Start: 07/04/19 13: 29 Text: Status: Complete Freq: Protocol: Document 07/04/19 13:30 ANAIS (Rec: 07/04/19 13:32 ANAIS [id number]) Nutritional Asmnt/Malnutrition Patient General Information Nutritional Screening Moderate Risk Consult Diagnosis Psychosis Pertinent Medical Hx/Surgical Hx Hypotension, malnutrition, Parkinsons Disease, COPD, GERD, Hyperglycemia Subjective Information Consult: Very thin, poor skin condition Pt is a 89-year-old male admitted on 07/01 c/o. Pt is eating 70% of meals since admittance (average 2 days) Per Meal/Nutrition Activity Record. Pt ate 25-50% 07/02, but 100% meals yesterday 07/03 . Dietary is currently providing an estimated 1950 kcals and 65 gm Pro, per Pt PO intake this is providing an estimated 1370 kcals and 45gm Pro to meet 80% kcal and 94% Pro needs- adequate. Pt is currently on Megace, will continue to monitor PO intake. Spoke with nurse Dmitry regarding Pete BID. Stated he understood, will F/U in 1-2 days to see if pt is taking it and how it is being tolerated . Anthropometrics HT: 58 WT: 140 LB (63.64 kg) BMI: 21.29 (Normal) GI/ Skin Integrity GI: WNL, flat BM: 07/04 x1 I/O: 920/Not Noted Skin: Redness, Flaking, Wound, generalized dry and scaly skin Wound: Redness and skin breakdown in coccyx area Vinayak: 15 Diet Order: Renal Standard, Chopped, Mechanical Soft Estimated Energy Needs: (Renal , CBW) 5062-2289 kcals (28-30 kcals/ kg) 48-51g Pro (0.75-0.8 g/kg) 5218-4748 ml (28-30 ml/kg) Current Diet Order/ Nutrition Support Renal Standard, Chopped, Mechanical Soft Pertinent Medications Colace, Megace, Protonix Pertinent Labs 07/01: Hgb/Hct 12.6/38.4, Na 135, BUN/Cr 27/1.43 Nutritional Hx/Data Height 1.73 m Height (Calculated Centimeters) 172.7 Current Weight (lbs) 63.503 kg Weight (Calculated Kilograms) 63.5 Weight (Calculated Grams) 29623.9 [place] Body Weight 154 LB (70 kg) % [place] Body Weight 91 Body Mass Index (BMI) 21.2 Weight Status Approriate GI Symptoms GI Symptoms None Last BM 07/04 x1 Skin Integrity/Comment: Skin: Redness, Flaking, Wound, generalized dry and scaly skin Wound: Redness and skin breakdown in coccyx area Vinayak: 15 Estimated Nutritional Goals BEE in Kcals: Using Current wt Calories/Kcals/Kg 28-30 Kcals Calculated 6681-1785 Protein: Using Current wt Protein g/k.75-0.8 Protein Calculated 48-51 Fluid: ml 3094-1978 ml (28-30 ml/kg) Nutritional Problem 1. Problem Problem Increased mineral/vitamin utilization Etiology r/t poor skin integrity/wounds Signs/Symptoms: aeb Redness, Flaking, Wound, generalized dry and scaly skin and redness and skin breakdown in coccyx area. Intervention/Recommendation Comments 1. Continue with Renal Standard, Chopped, Mechanical Soft diet as ordered. 2. Add Pete BID to support wound healing and improve skin integrity (completed). Expected Outcomes/Goals Expected Outcomes/Goals 1. PO intake to continue to meet >75% of nutritional needs . 2. Monitor PO intake, wt, nutrition related labs, and skin integrity to trend WNL. 3. F/U as moderate risk in 3-5 days, 07/07-07/09
--- NOTE | 2019-07-08 03:53 | Progress Notes ---
DATE: 07/07/2019 SUBJECTIVE: Staff was spoken to. The patient is interviewed. Mood is noted to be anxious. The patient's coping skills are noted to be improving. Impulse control seems to be improving. No side effects to the medications are noted. 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 PLAN: To continue the patient with the supportive therapy, work with the rifle case repairer with regards to finding a placement for this patient. JOB# [id number]
[2019-07-08] MEDS: Pantoprazole 40 mg EC Tab PO SCH (06:53)
[2019-07-08] MEDS: Eucerin Cream 16 oz Jar TP SCH ×2 (09:59→17:55)
--- NOTE | 2019-07-08 12:37 | Internal Medicine Prog Note ---
Internal Medicine Subjective - Subjective Patient seen and examined:: with staff, chart reviewed Patient is:: awake, verbal, interactive, in bed Per staff patient has:: no adverse event, no episodes of fall, poor appetite Internal Medicine Objective - Physical Exam Vitals and I&O: Vital Signs Temp 97.4 F 07/08/19 06:29 Pulse 91 07/08/19 06:29 Resp 18 07/08/19 06:29 BP 125/74 07/08/19 06:29 Pulse Ox 98 07/08/19 06:29 Intake & Output 07/07/19 07/08/19 07/08/19 18:59 06:59 18:59 Intake Total 1300 120 Balance 1300 120 Intake: Oral 1300 120 Other: # Voids 3 3 # Bowel Movements 0 Active Medications: Current Medications Acetaminophen (Tylenol) 650 mg PO Q4H PRN PRN Reason: Pain or Fever >101 Stop: 08/31/19 04:30 Aripiprazole (Abilify) 2 mg PO DAILY [facility]; Protocol Stop: 09/02/19 08:59 Last Admin: 07/08/19 09:59 Dose: 2 mg Carbidopa/Levodopa (Sinemet 25 Mg-250 Mg) 1 tab PO TID [facility] Stop: 08/31/19 08:59 Last Admin: 07/08/19 09:58 Dose: 1 tab Docusate Sodium (Colace) 250 mg PO DAILY PRN PRN Reason: Constipation Stop: 08/31/19 08:59 Docusate Sodium (Colace) 100 mg PO BID [facility] Stop: 08/31/19 16:59 Last Admin: 07/08/19 09:59 Dose: 100 mg Guaifenesin (Robitussin) 200 mg PO Q4HR PRN PRN Reason: Cough or Congestion Stop: 08/31/19 04:43 Loratadine (Claritin) 10 mg PO QPM [facility] Stop: 08/31/19 16:59 Last Admin: 07/07/19 17:30 Dose: 10 mg Lorazepam (Ativan) 0.5 mg PO Q4HR PRN; Protocol PRN Reason: agitation/anxiety Stop: 08/01/19 04:01 Megestrol Acetate (Megace) 400 mg PO BID [facility]; Protocol Stop: 08/31/19 08:59 Last Admin: 07/08/19 09:59 Dose: 400 mg Modafinil (Provigil) 100 mg PO DAILY [facility]; Protocol Stop: 08/31/19 08:59 Last Admin: 07/08/19 09:59 Dose: 100 mg Multi-Ingredient Cream (Eucerin Cream) 1 appl TP BID [facility] Stop: 09/02/19 16:59 Last Admin: 07/08/19 09:59 Dose: 1 appl Pantoprazole Sodium (Protonix) 40 mg PO QDAC [facility] Stop: 09/01/19 07:29 Last Admin: 07/08/19 06:53 Dose: 40 mg Zolpidem Tartrate (Ambien) 5 mg PO HSMR1 PRN PRN Reason: Insomnia Stop: 08/31/19 04:01 General: demented HEENT: NC/AT, PERRLA, EOMI Neck: Supple, No JVD, No thyromegaly Lungs: CTAB Cardiovascular: RRR, Normal S1, Normal S2, with murmur Abdomen: soft, thin, non-distended, positive bowel sound Extremities: excoriation, contracture, deformity Neurological: no change, disorganized - Procedures Procedures: Procedures Procedure Code Date EXCISION OF ESOPHAGUS, ENDO, DIAGN [id number] 09/09/17 EXCISION OF STOMACH, ENDO, DIAGN [id number] 09/09/17 Internal Medicine Assmt/Plan - Assessment Assessment: Assessment: ASSESSMENT AND PLAN: episode of hypotension, Malnutrition, Parkinson, h/o hypertension, chronic obstructive pulmonary disease, gastroesophageal reflux disease, allergic rhinitis, history of hyperglycemia. - Plan Plan: - Plan Plan: PLAN: We will liberalize the patient's diet. Continue on Sinemet. We will continue proton pump inhibitor. We will add Megace. hold routine anti hypertensive meds for now We will follow the patient closely with you, Dr Feliz. meds renewed Nutritional Asmnt/Malnutr-PDOC - Dietary Evaluation Malnutrition Findings (Please click <Entered> for more info): Nutritional Asmnt/Malnutrition Start: 07/04/19 13: 29 Text: Status: Complete Freq: Protocol: Document 07/04/19 13:30 ANAIS (Rec: 07/04/19 13:32 ANAIS [id number]) Nutritional Asmnt/Malnutrition Patient General Information Nutritional Screening Moderate Risk Consult Diagnosis Psychosis Pertinent Medical Hx/Surgical Hx Hypotension, malnutrition, Parkinsons Disease, COPD, GERD, Hyperglycemia Subjective Information Consult: Very thin, poor skin condition Pt is a 89-year-old male admitted on 07/01 c/o. Pt is eating 70% of meals since admittance (average 2 days) Per Meal/Nutrition Activity Record. Pt ate 25-50% 07/02, but 100% meals yesterday 07/03 . Dietary is currently providing an estimated 1950 kcals and 65 gm Pro, per Pt PO intake this is providing an estimated 1370 kcals and 45gm Pro to meet 80% kcal and 94% Pro needs- adequate. Pt is currently on Megace, will continue to monitor PO intake. Spoke with nurse Dmitry regarding Pete BID. Stated he understood, will F/U in 1-2 days to see if pt is taking it and how it is being tolerated . Anthropometrics HT: 58 WT: 140 LB (63.64 kg) BMI: 21.29 (Normal) GI/ Skin Integrity GI: WNL, flat BM: 07/04 x1 I/O: 920/Not Noted Skin: Redness, Flaking, Wound, generalized dry and scaly skin Wound: Redness and skin breakdown in coccyx area Vinayak: 15 Diet Order: Renal Standard, Chopped, Mechanical Soft Estimated Energy Needs: (Renal , CBW) 9078-6098 kcals (28-30 kcals/ kg) 48-51g Pro (0.75-0.8 g/kg) 0529-0413 ml (28-30 ml/kg) Current Diet Order/ Nutrition Support Renal Standard, Chopped, Mechanical Soft Pertinent Medications Colace, Megace, Protonix Pertinent Labs 07/01: Hgb/Hct 12.6/38.4, Na 135, BUN/Cr 27/1.43 Nutritional Hx/Data Height 1.73 m Height (Calculated Centimeters) 172.7 Current Weight (lbs) 63.503 kg Weight (Calculated Kilograms) 63.5 Weight (Calculated Grams) 73129.9 [place] Body Weight 154 LB (70 kg) % [place] Body Weight 91 Body Mass Index (BMI) 21.2 Weight Status Approriate GI Symptoms GI Symptoms None Last BM 07/04 x1 Skin Integrity/Comment: Skin: Redness, Flaking, Wound, generalized dry and scaly skin Wound: Redness and skin breakdown in coccyx area Vinayak: 15 Estimated Nutritional Goals BEE in Kcals: Using Current wt Calories/Kcals/Kg 28-30 Kcals Calculated 8410-2087 Protein: Using Current wt Protein g/k.75-0.8 Protein Calculated 48-51 Fluid: ml 0560-5294 ml (28-30 ml/kg) Nutritional Problem 1. Problem Problem Increased mineral/vitamin utilization Etiology r/t poor skin integrity/wounds Signs/Symptoms: aeb Redness, Flaking, Wound, generalized dry and scaly skin and redness and skin breakdown in coccyx area. Intervention/Recommendation Comments 1. Continue with Renal Standard, Chopped, Mechanical Soft diet as ordered. 2. Add Pete BID to support wound healing and improve skin integrity (completed). Expected Outcomes/Goals Expected Outcomes/Goals 1. PO intake to continue to meet >75% of nutritional needs . 2. Monitor PO intake, wt, nutrition related labs, and skin integrity to trend WNL. 3. F/U as moderate risk in 3-5 days, 07/07-07/09
--- NOTE | 2019-07-09 02:13 | Progress Notes ---
DATE: 07/08/2019 SUBJECTIVE: Staff was spoken to. The patient is interviewed. Mood is noted to be irritable. Affect is constricted. Coping skills are noted to be still poor. Insight and judgment are noted to be improving. No side effects to the medications are noted. The patient, however, screaming and yelling has been coming down. The patient, however, has paranoia. The patient has been able to tolerate the Abilify. PLAN: To continue the patient with the current medications. I encouraged the patient to verbalize the concerns rather than to act out. JOB# [id number]
[2019-07-09] MEDS: Pantoprazole 40 mg EC Tab PO SCH (06:43)
[2019-07-09] MEDS: Eucerin Cream 16 oz Jar TP SCH ×2 (09:33→17:35)
--- NOTE | 2019-07-09 14:02 | Internal Medicine Prog Note ---
Internal Medicine Subjective - Subjective Service Date: 07/09/19 Patient is:: awake, verbal, interactive, in bed Per staff patient has:: no adverse event, no episodes of fall, poor appetite Internal Medicine Objective - Physical Exam Vitals and I&O: Vital Signs Temp 97.8 F 07/09/19 06:15 Pulse 81 07/09/19 06:15 Resp 18 07/09/19 08:00 BP 123/67 07/09/19 06:15 Pulse Ox 96 07/09/19 06:15 Intake & Output 07/08/19 07/09/19 07/09/19 18:59 06:59 18:59 Intake Total 1200 120 Output Total 1 Balance 1200 119 Intake: Oral 1200 120 Output: Urine/Stool Mix 1 Other: # Voids 1 # Bowel Movements 1 1 Active Medications: Current Medications Acetaminophen (Tylenol) 650 mg PO Q4H PRN PRN Reason: Pain or Fever >101 Stop: 08/31/19 04:30 Aripiprazole (Abilify) 2 mg PO DAILY [facility]; Protocol Stop: 09/02/19 08:59 Last Admin: 07/09/19 09:33 Dose: 2 mg Carbidopa/Levodopa (Sinemet 25 Mg-250 Mg) 1 tab PO TID [facility] Stop: 08/31/19 08:59 Last Admin: 07/09/19 09:33 Dose: 1 tab Docusate Sodium (Colace) 250 mg PO DAILY PRN PRN Reason: Constipation Stop: 08/31/19 08:59 Docusate Sodium (Colace) 100 mg PO BID [facility] Stop: 08/31/19 16:59 Last Admin: 07/09/19 09:33 Dose: 100 mg Guaifenesin (Robitussin) 200 mg PO Q4HR PRN PRN Reason: Cough or Congestion Stop: 08/31/19 04:43 Loratadine (Claritin) 10 mg PO QPM [facility] Stop: 08/31/19 16:59 Last Admin: 07/08/19 17:55 Dose: 10 mg Lorazepam (Ativan) 0.5 mg PO Q4HR PRN; Protocol PRN Reason: agitation/anxiety Stop: 08/01/19 04:01 Megestrol Acetate (Megace) 400 mg PO BID [facility]; Protocol Stop: 08/31/19 08:59 Last Admin: 07/09/19 09:34 Dose: 400 mg Modafinil (Provigil) 100 mg PO DAILY [facility]; Protocol Stop: 08/31/19 08:59 Last Admin: 07/09/19 09:33 Dose: 100 mg Multi-Ingredient Cream (Eucerin Cream) 1 appl TP BID [facility] Stop: 09/02/19 16:59 Last Admin: 07/09/19 09:33 Dose: 1 appl Pantoprazole Sodium (Protonix) 40 mg PO QDAC [facility] Stop: 09/01/19 07:29 Last Admin: 07/09/19 06:43 Dose: 40 mg Zolpidem Tartrate (Ambien) 5 mg PO HSMR1 PRN PRN Reason: Insomnia Stop: 08/31/19 04:01 General: demented HEENT: NC/AT, PERRLA, EOMI Neck: Supple, No JVD, No thyromegaly Lungs: CTAB Cardiovascular: RRR, Normal S1, Normal S2, with murmur Abdomen: soft, thin, non-distended, positive bowel sound Extremities: excoriation, contracture, deformity Neurological: no change, disorganized - Procedures Procedures: Procedures Procedure Code Date EXCISION OF ESOPHAGUS, ENDO, DIAGN [id number] 09/09/17 EXCISION OF STOMACH, ENDO, DIAGN [id number] 09/09/17 Internal Medicine Assmt/Plan - Assessment Assessment: ASSESSMENT AND PLAN: episode of hypotension, Malnutrition, Parkinson, h/o hypertension, chronic obstructive pulmonary disease, gastroesophageal reflux disease, allergic rhinitis, history of hyperglycemia. - Plan Plan: We will liberalize the patient's diet. Continue on Sinemet. We will continue proton pump inhibitor. We will add Megace. hold routine anti hypertensive meds for now We will follow the patient closely with you, Dr Feliz. meds renewed Nutritional Asmnt/Malnutr-PDOC - Dietary Evaluation Malnutrition Findings (Please click <Entered> for more info): Nutritional Asmnt/Malnutrition Start: 07/04/19 13: 29 Text: Status: Complete Freq: Protocol: Document 07/04/19 13:30 ANAIS (Rec: 07/04/19 13:32 ANAIS [id number]) Nutritional Asmnt/Malnutrition Patient General Information Nutritional Screening Moderate Risk Consult Diagnosis Psychosis Pertinent Medical Hx/Surgical Hx Hypotension, malnutrition, Parkinsons Disease, COPD, GERD, Hyperglycemia Subjective Information Consult: Very thin, poor skin condition Pt is a 89-year-old male admitted on 07/01 c/o. Pt is eating 70% of meals since admittance (average 2 days) Per Meal/Nutrition Activity Record. Pt ate 25-50% 07/02, but 100% meals yesterday 07/03 . Dietary is currently providing an estimated 1950 kcals and 65 gm Pro, per Pt PO intake this is providing an estimated 1370 kcals and 45gm Pro to meet 80% kcal and 94% Pro needs- adequate. Pt is currently on Megace, will continue to monitor PO intake. Spoke with nurse Dmitry regarding Pete BID. Stated he understood, will F/U in 1-2 days to see if pt is taking it and how it is being tolerated . Anthropometrics HT: 58 WT: 140 LB (63.64 kg) BMI: 21.29 (Normal) GI/ Skin Integrity GI: WNL, flat BM: 07/04 x1 I/O: 920/Not Noted Skin: Redness, Flaking, Wound, generalized dry and scaly skin Wound: Redness and skin breakdown in coccyx area Vinayak: 15 Diet Order: Renal Standard, Chopped, Mechanical Soft Estimated Energy Needs: (Renal , CBW) 4296-3979 kcals (28-30 kcals/ kg) 48-51g Pro (0.75-0.8 g/kg) 6878-7889 ml (28-30 ml/kg) Current Diet Order/ Nutrition Support Renal Standard, Chopped, Mechanical Soft Pertinent Medications Colace, Megace, Protonix Pertinent Labs 07/01: Hgb/Hct 12.6/38.4, Na 135, BUN/Cr 27/1.43 Nutritional Hx/Data Height 5 ft 8 in Height (Calculated Centimeters) 172.7 Current Weight (lbs) 140 lb Weight (Calculated Kilograms) 63.5 Weight (Calculated Grams) 92870.9 [place] Body Weight 154 LB (70 kg) % [place] Body Weight 91 Body Mass Index (BMI) 21.2 Weight Status Approriate GI Symptoms GI Symptoms None Last BM 07/04 x1 Skin Integrity/Comment: Skin: Redness, Flaking, Wound, generalized dry and scaly skin Wound: Redness and skin breakdown in coccyx area Vinayak: 15 Estimated Nutritional Goals BEE in Kcals: Using Current wt Calories/Kcals/Kg 28-30 Kcals Calculated 5008-8169 Protein: Using Current wt Protein g/k.75-0.8 Protein Calculated 48-51 Fluid: ml 9644-3684 ml (28-30 ml/kg) Nutritional Problem 1. Problem Problem Increased mineral/vitamin utilization Etiology r/t poor skin integrity/wounds Signs/Symptoms: aeb Redness, Flaking, Wound, generalized dry and scaly skin and redness and skin breakdown in coccyx area. Intervention/Recommendation Comments 1. Continue with Renal Standard, Chopped, Mechanical Soft diet as ordered. 2. Add Pete BID to support wound healing and improve skin integrity (completed). Expected Outcomes/Goals Expected Outcomes/Goals 1. PO intake to continue to meet >75% of nutritional needs . 2. Monitor PO intake, wt, nutrition related labs, and skin integrity to trend WNL. 3. F/U as moderate risk in 3-5 days, 07/07-07/09
--- NOTE | 2019-07-09 18:18 | Progress Notes ---
DATE: 07/09/2019 SUBJECTIVE: Staff was spoken to. The patient is interviewed. Mood is noted to be anxious and irritable. Affect is constricted. The patient is reporting that he did not sleep well last night. Coping skills at this time are noted to be still poor. Insight and judgment also noted to be limited. The patient has been having difficult time to cope with the stress. Screaming and yelling has been coming down compared to the time of the admission, the patient is currently on Abilify and has been able to tolerate the medications. No major side effects are noted, but the patient continues to be having problem with the confusion and cognitive difficulties. PLAN: To continue the patient with the supportive therapy and continue current medications and follow up. JOB# [id number]
[2019-07-10] MEDS: Pantoprazole 40 mg EC Tab PO SCH (06:47)
[2019-07-10] MEDS: Eucerin Cream 16 oz Jar TP SCH ×2 (09:33→17:03)
--- NOTE | 2019-07-10 11:40 | Progress Notes ---
DATE: 07/10/2019 SUBJECTIVE: Staff was spoken to. The patient is interviewed. Mood was noted to be anxious. The patient's insight and judgment at this time are noted to be still impaired. Impulse control is noted to be limited. The patient is isolative and withdrawn. The patient has been having difficult time to cope with the stress. The patient has paranoia, but denies any command hallucinations today. No side effects to the medications are noted. No major behavioral problems are noted. ASSESSMENT: The patient's impulsivity is coming under control. PLAN: To continue the patient with the current medications, work with the case management director with regards to [facility]. JOB# [id number]
--- NOTE | 2019-07-10 15:38 | Internal Medicine Prog Note ---
Internal Medicine Subjective - Subjective Service Date: 07/10/19 Patient is:: awake, verbal, interactive, in bed Per staff patient has:: no adverse event, no episodes of fall, poor appetite Internal Medicine Objective - Physical Exam Vitals and I&O: Vital Signs Temp 98.0 F 07/10/19 06:29 Pulse 75 07/10/19 06:29 Resp 18 07/10/19 07:53 BP 143/72 07/10/19 06:29 Pulse Ox 98 07/10/19 06:29 Intake & Output 07/09/19 07/10/19 07/10/19 18:59 06:59 18:59 Intake Total 1100 120 Output Total 1 Balance 1100 119 Intake: Oral 1100 120 Output: Urine/Stool Mix 1 Other: # Voids 3 1 # Bowel Movements 0 Active Medications: Current Medications Acetaminophen (Tylenol) 650 mg PO Q4H PRN PRN Reason: Pain or Fever >101 Stop: 08/31/19 04:30 Aripiprazole (Abilify) 2 mg PO DAILY [facility]; Protocol Stop: 09/02/19 08:59 Last Admin: 07/10/19 09:34 Dose: 2 mg Carbidopa/Levodopa (Sinemet 25 Mg-250 Mg) 1 tab PO TID [facility] Stop: 08/31/19 08:59 Last Admin: 07/10/19 13:26 Dose: 1 tab Docusate Sodium (Colace) 250 mg PO DAILY PRN PRN Reason: Constipation Stop: 08/31/19 08:59 Docusate Sodium (Colace) 100 mg PO BID [facility] Stop: 08/31/19 16:59 Last Admin: 07/10/19 09:34 Dose: 100 mg Guaifenesin (Robitussin) 200 mg PO Q4HR PRN PRN Reason: Cough or Congestion Stop: 08/31/19 04:43 Loratadine (Claritin) 10 mg PO QPM [facility] Stop: 08/31/19 16:59 Last Admin: 07/09/19 17:35 Dose: 10 mg Lorazepam (Ativan) 0.5 mg PO Q4HR PRN; Protocol PRN Reason: agitation/anxiety Stop: 08/01/19 04:01 Megestrol Acetate (Megace) 400 mg PO BID [facility]; Protocol Stop: 08/31/19 08:59 Last Admin: 07/10/19 09:33 Dose: 400 mg Modafinil (Provigil) 100 mg PO DAILY [facility]; Protocol Stop: 08/31/19 08:59 Last Admin: 07/10/19 09:34 Dose: 100 mg Multi-Ingredient Cream (Eucerin Cream) 1 appl TP BID [facility] Stop: 09/02/19 16:59 Last Admin: 07/10/19 09:33 Dose: 1 appl Pantoprazole Sodium (Protonix) 40 mg PO QDAC [facility] Stop: 09/01/19 07:29 Last Admin: 07/10/19 06:47 Dose: 40 mg Zolpidem Tartrate (Ambien) 5 mg PO HSMR1 PRN PRN Reason: Insomnia Stop: 08/31/19 04:01 General: demented HEENT: NC/AT, PERRLA, EOMI Neck: Supple, No JVD, No thyromegaly Lungs: CTAB Cardiovascular: RRR, Normal S1, Normal S2, with murmur Abdomen: soft, thin, non-distended, positive bowel sound Extremities: excoriation, contracture, deformity Neurological: no change, disorganized - Procedures Procedures: Procedures Procedure Code Date EXCISION OF ESOPHAGUS, ENDO, DIAGN [id number] 09/09/17 EXCISION OF STOMACH, ENDO, DIAGN [id number] 09/09/17 Internal Medicine Assmt/Plan - Assessment Assessment: ASSESSMENT AND PLAN: episode of hypotension, Malnutrition, Parkinson, h/o hypertension, chronic obstructive pulmonary disease, gastroesophageal reflux disease, allergic rhinitis, history of hyperglycemia. - Plan Plan: We will liberalize the patient's diet. Continue on Sinemet. We will continue proton pump inhibitor. We will add Megace. hold routine anti hypertensive meds for now We will follow the patient closely with you, Dr Feliz. meds renewed Nutritional Asmnt/Malnutr-PDOC - Dietary Evaluation Malnutrition Findings (Please click <Entered> for more info): Nutritional Asmnt/Malnutrition Start: 07/04/19 13: 29 Text: Status: Complete Freq: Protocol: Document 07/04/19 13:30 ANAIS (Rec: 07/04/19 13:32 ANAIS [id number]) Nutritional Asmnt/Malnutrition Patient General Information Nutritional Screening Moderate Risk Consult Diagnosis Psychosis Pertinent Medical Hx/Surgical Hx Hypotension, malnutrition, Parkinsons Disease, COPD, GERD, Hyperglycemia Subjective Information Consult: Very thin, poor skin condition Pt is a 89-year-old male admitted on 07/01 c/o. Pt is eating 70% of meals since admittance (average 2 days) Per Meal/Nutrition Activity Record. Pt ate 25-50% 07/02, but 100% meals yesterday 07/03 . Dietary is currently providing an estimated 1950 kcals and 65 gm Pro, per Pt PO intake this is providing an estimated 1370 kcals and 45gm Pro to meet 80% kcal and 94% Pro needs- adequate. Pt is currently on Megace, will continue to monitor PO intake. Spoke with nurse Dmitry regarding Pete BID. Stated he understood, will F/U in 1-2 days to see if pt is taking it and how it is being tolerated . Anthropometrics HT: 58 WT: 140 LB (63.64 kg) BMI: 21.29 (Normal) GI/ Skin Integrity GI: WNL, flat BM: 07/04 x1 I/O: 920/Not Noted Skin: Redness, Flaking, Wound, generalized dry and scaly skin Wound: Redness and skin breakdown in coccyx area Vinayak: 15 Diet Order: Renal Standard, Chopped, Mechanical Soft Estimated Energy Needs: (Renal , CBW) 6768-1875 kcals (28-30 kcals/ kg) 48-51g Pro (0.75-0.8 g/kg) 2726-7534 ml (28-30 ml/kg) Current Diet Order/ Nutrition Support Renal Standard, Chopped, Mechanical Soft Pertinent Medications Colace, Megace, Protonix Pertinent Labs 07/01: Hgb/Hct 12.6/38.4, Na 135, BUN/Cr 27/1.43 Nutritional Hx/Data Height 5 ft 8 in Height (Calculated Centimeters) 172.7 Current Weight (lbs) 140 lb Weight (Calculated Kilograms) 63.5 Weight (Calculated Grams) 04987.9 [place] Body Weight 154 LB (70 kg) % [place] Body Weight 91 Body Mass Index (BMI) 21.2 Weight Status Approriate GI Symptoms GI Symptoms None Last BM 07/04 x1 Skin Integrity/Comment: Skin: Redness, Flaking, Wound, generalized dry and scaly skin Wound: Redness and skin breakdown in coccyx area Vinayak: 15 Estimated Nutritional Goals BEE in Kcals: Using Current wt Calories/Kcals/Kg 28-30 Kcals Calculated 0371-1828 Protein: Using Current wt Protein g/k.75-0.8 Protein Calculated 48-51 Fluid: ml 8040-6572 ml (28-30 ml/kg) Nutritional Problem 1. Problem Problem Increased mineral/vitamin utilization Etiology r/t poor skin integrity/wounds Signs/Symptoms: aeb Redness, Flaking, Wound, generalized dry and scaly skin and redness and skin breakdown in coccyx area. Intervention/Recommendation Comments 1. Continue with Renal Standard, Chopped, Mechanical Soft diet as ordered. 2. Add Pete BID to support wound healing and improve skin integrity (completed). Expected Outcomes/Goals Expected Outcomes/Goals 1. PO intake to continue to meet >75% of nutritional needs . 2. Monitor PO intake, wt, nutrition related labs, and skin integrity to trend WNL. 3. F/U as moderate risk in 3-5 days, 07/07-07/09
[2019-07-11] MEDS: Pantoprazole 40 mg EC Tab PO SCH (06:45)
[2019-07-11] MEDS: Eucerin Cream 16 oz Jar TP SCH (09:11)
--- NOTE | 2019-07-11 12:34 | Internal Medicine Prog Note ---
Internal Medicine Subjective - Subjective Patient seen and examined:: with staff, chart reviewed Patient is:: awake, verbal, interactive, in bed Per staff patient has:: no adverse event, no episodes of fall, poor appetite Internal Medicine Objective - Physical Exam Vitals and I&O: Vital Signs Temp 97.8 F 07/11/19 06:20 Pulse 81 07/11/19 06:20 Resp 18 07/11/19 07:37 BP 152/83 07/11/19 06:20 Pulse Ox 97 07/11/19 06:20 Intake & Output 07/10/19 07/11/19 07/11/19 18:59 06:59 18:59 Intake Total 800 120 Balance 800 120 Intake: Oral 800 120 Other: # Voids 3 3 # Bowel Movements 1 0 Active Medications: Current Medications Acetaminophen (Tylenol) 650 mg PO Q4H PRN PRN Reason: Pain or Fever >101 Stop: 08/31/19 04:30 Aripiprazole (Abilify) 2 mg PO DAILY [facility]; Protocol Stop: 09/02/19 08:59 Last Admin: 07/11/19 09:11 Dose: 2 mg Carbidopa/Levodopa (Sinemet 25 Mg-250 Mg) 1 tab PO TID [facility] Stop: 08/31/19 08:59 Last Admin: 07/11/19 09:11 Dose: 1 tab Docusate Sodium (Colace) 250 mg PO DAILY PRN PRN Reason: Constipation Stop: 08/31/19 08:59 Docusate Sodium (Colace) 100 mg PO BID [facility] Stop: 08/31/19 16:59 Last Admin: 07/11/19 09:11 Dose: 100 mg Guaifenesin (Robitussin) 200 mg PO Q4HR PRN PRN Reason: Cough or Congestion Stop: 08/31/19 04:43 Loratadine (Claritin) 10 mg PO QPM [facility] Stop: 08/31/19 16:59 Last Admin: 07/10/19 17:03 Dose: 10 mg Lorazepam (Ativan) 0.5 mg PO Q4HR PRN; Protocol PRN Reason: agitation/anxiety Stop: 08/01/19 04:01 Megestrol Acetate (Megace) 400 mg PO BID [facility]; Protocol Stop: 08/31/19 08:59 Last Admin: 07/11/19 09:11 Dose: 400 mg Modafinil (Provigil) 100 mg PO DAILY [facility]; Protocol Stop: 08/31/19 08:59 Last Admin: 07/11/19 09:11 Dose: 100 mg Multi-Ingredient Cream (Eucerin Cream) 1 appl TP BID [facility] Stop: 09/02/19 16:59 Last Admin: 07/11/19 09:11 Dose: 1 appl Pantoprazole Sodium (Protonix) 40 mg PO QDAC [facility] Stop: 09/01/19 07:29 Last Admin: 07/11/19 06:45 Dose: 40 mg Zolpidem Tartrate (Ambien) 5 mg PO HSMR1 PRN PRN Reason: Insomnia Stop: 08/31/19 04:01 General: demented HEENT: NC/AT, PERRLA, EOMI Neck: Supple, No JVD, No thyromegaly Lungs: CTAB Cardiovascular: RRR, Normal S1, Normal S2, with murmur Abdomen: soft, thin, non-distended, positive bowel sound Extremities: excoriation, contracture, deformity Neurological: no change, disorganized - Procedures Procedures: Procedures Procedure Code Date EXCISION OF ESOPHAGUS, ENDO, DIAGN [id number] 09/09/17 EXCISION OF STOMACH, ENDO, DIAGN [id number] 09/09/17 Internal Medicine Assmt/Plan - Assessment Assessment: Assessment: ASSESSMENT AND PLAN: episode of hypotension, Malnutrition, Parkinson, h/o hypertension, chronic obstructive pulmonary disease, gastroesophageal reflux disease, allergic rhinitis, history of hyperglycemia. - Plan Plan: - Plan Plan: PLAN: We will liberalize the patient's diet. Continue on Sinemet. We will continue proton pump inhibitor. We will add Megace. hold routine anti hypertensive meds for now We will follow the patient closely with you, Dr Feliz. meds renewed Nutritional Asmnt/Malnutr-PDOC - Dietary Evaluation Malnutrition Findings (Please click <Entered> for more info): Nutritional Asmnt/Malnutrition Start: 07/04/19 13: 29 Text: Status: Complete Freq: Protocol: Document 07/04/19 13:30 ANAIS (Rec: 07/04/19 13:32 ANAIS [id number]) Nutritional Asmnt/Malnutrition Patient General Information Nutritional Screening Moderate Risk Consult Diagnosis Psychosis Pertinent Medical Hx/Surgical Hx Hypotension, malnutrition, Parkinsons Disease, COPD, GERD, Hyperglycemia Subjective Information Consult: Very thin, poor skin condition Pt is a 89-year-old male admitted on 07/01 c/o. Pt is eating 70% of meals since admittance (average 2 days) Per Meal/Nutrition Activity Record. Pt ate 25-50% 07/02, but 100% meals yesterday 07/03 . Dietary is currently providing an estimated 1950 kcals and 65 gm Pro, per Pt PO intake this is providing an estimated 1370 kcals and 45gm Pro to meet 80% kcal and 94% Pro needs- adequate. Pt is currently on Megace, will continue to monitor PO intake. Spoke with nurse Dmitry regarding Pete BID. Stated he understood, will F/U in 1-2 days to see if pt is taking it and how it is being tolerated . Anthropometrics HT: 58 WT: 140 LB (63.64 kg) BMI: 21.29 (Normal) GI/ Skin Integrity GI: WNL, flat BM: 07/04 x1 I/O: 920/Not Noted Skin: Redness, Flaking, Wound, generalized dry and scaly skin Wound: Redness and skin breakdown in coccyx area Vinayak: 15 Diet Order: Renal Standard, Chopped, Mechanical Soft Estimated Energy Needs: (Renal , CBW) 5887-5683 kcals (28-30 kcals/ kg) 48-51g Pro (0.75-0.8 g/kg) 1386-5699 ml (28-30 ml/kg) Current Diet Order/ Nutrition Support Renal Standard, Chopped, Mechanical Soft Pertinent Medications Colace, Megace, Protonix Pertinent Labs 07/01: Hgb/Hct 12.6/38.4, Na 135, BUN/Cr 27/1.43 Nutritional Hx/Data Height 1.73 m Height (Calculated Centimeters) 172.7 Current Weight (lbs) 63.503 kg Weight (Calculated Kilograms) 63.5 Weight (Calculated Grams) 47503.9 [place] Body Weight 154 LB (70 kg) % [place] Body Weight 91 Body Mass Index (BMI) 21.2 Weight Status Approriate GI Symptoms GI Symptoms None Last BM 07/04 x1 Skin Integrity/Comment: Skin: Redness, Flaking, Wound, generalized dry and scaly skin Wound: Redness and skin breakdown in coccyx area Vinayak: 15 Estimated Nutritional Goals BEE in Kcals: Using Current wt Calories/Kcals/Kg 28-30 Kcals Calculated 2579-8408 Protein: Using Current wt Protein g/k.75-0.8 Protein Calculated 48-51 Fluid: ml 9450-6309 ml (28-30 ml/kg) Nutritional Problem 1. Problem Problem Increased mineral/vitamin utilization Etiology r/t poor skin integrity/wounds Signs/Symptoms: aeb Redness, Flaking, Wound, generalized dry and scaly skin and redness and skin breakdown in coccyx area. Intervention/Recommendation Comments 1. Continue with Renal Standard, Chopped, Mechanical Soft diet as ordered. 2. Add Pete BID to support wound healing and improve skin integrity (completed). Expected Outcomes/Goals Expected Outcomes/Goals 1. PO intake to continue to meet >75% of nutritional needs . 2. Monitor PO intake, wt, nutrition related labs, and skin integrity to trend WNL. 3. F/U as moderate risk in 3-5 days, 07/07-07/09
--- NOTE | 2019-07-11 20:00 | Discharge Summary ---
DATE OF DISCHARGE: 07/11/2019 PSYCHIATRIC DISCHARGE SUMMARY IDENTIFYING DATA: The patient is an 89-year-old resident of [facility]. Information obtained directly interviewing the patient as well as reviewing the admission papers and they are reliable. JUSTIFICATION OF HOSPITALIZATION: The patient is admitted for his acute agitation and screaming and yelling behavior. Physical examination at the time of admission has been done by Dr. Shaver is noted to be significant for Parkinson's disease, COPD, diabetes mellitus, and psoriasis. HOSPITAL COURSE AND RESPONSE TO TREATMENT: The patient has been closely monitored for his blood pressure and the patient has been encouraged to participate in the groups and verbalize the concerns. Blood work done at the time of the hospitalization has been reviewed by Dr. Shaver and the patient has been placed on aripiprazole, which was given 2 mg and the patient has been continued on the carbidopa/levodopa and the patient has been closely monitored. The patient started to do fairly well and the patient was finally discharged on 07/11/2019 with recommendation that he is going to be seeking treatment on an outpatient basis. MENTAL STATUS EXAMINATION AT THE TIME OF DISCHARGE: The patient's mood is noted to be anxious. Affect is appropriate. Not suicidal or homicidal. Insight and judgment are noted to be fair. Impulse control is noted to be fair. Coping skills are noted to be fair. The patient has been able to verbalize the concerns rather than to act out at the time of the discharge. CONDITION AT THE TIME OF DISCHARGE: Noted to be stable. [facility]# [id number]
== END 2019-07-11 16:15 | DRG 57 ==
LOC: GERO 07-01 18:26
PROVIDERS: ADMIT Psychiatry & Neurology Psychiatry; ATTEND Psychiatry & Neurology Psychiatry
DX: G30.9 Alzheimer's disease, unspecified (principal); F02.80 Dementia in other diseases classified elsewhere, unspecified severity, without behavioral disturbance, psychotic disturbance, mood disturbance, and anxiety; E46 Unspecified protein-calorie malnutrition; Z68.21 Body mass index [BMI] 21.0-21.9, adult; G20 Parkinson's disease; K21.9 Gastro-esophageal reflux disease without esophagitis; J30.9 Allergic rhinitis, unspecified; E11.9 Type 2 diabetes mellitus without complications; J44.9 Chronic obstructive pulmonary disease, unspecified; I95.9 Hypotension, unspecified; L40.9 Psoriasis, unspecified
CPT/HCPCS: 83036-90; Z7610